=== PATIENT | male | born 1960 | race American Indian/Alaskan Native ===

== ENCOUNTER 2018-06-10 21:28 | Inpatient (IN) ==
[2018-06-11] MEDS ORDERED: DEXTROSE 50% 25 GM/50 ML VIAL IV ONE (00:09)
[2018-06-11] MEDS ORDERED: FUROSEMIDE 40 MG/4 ML VIAL IV ONE (00:32)
[2018-06-11] MEDS ORDERED: GLUCAGON 1 MG VIAL IM PRN ×2 (00:44→00:51)
[2018-06-11] MEDS ORDERED: ONDANSETRON 4 MG/2 ML VIAL IV PRN (00:44)
[2018-06-11] MEDS ORDERED: ACETAMINOPHEN 325 MG TABLET PO PRN (00:44)
[2018-06-11] MEDS ORDERED: ALBUTEROL/IPRATROPIUM 3 ML NEB RESP TX PRN (00:50)
[2018-06-11] MEDS ORDERED: DEXTROSE 50% 25 GM/50 ML VIAL IV PRN (00:51)
[2018-06-11] MEDS: cefTRIAXone 1,000 MG in SYRINGE 1 EACH IV SCH (01:30)
[2018-06-11] MEDS: DEXTROSE 50% 25 GM/50 ML VIAL IV PRN ×2 (01:37→07:16)
[2018-06-11 01:51] LABS: Basophils # 0.1 10*3/uL (0.0-0.2); Basophils % 0.3 % (0.0-0.8); Hematocrit 35.6 VOL% (42.0-52.0); Hemoglobin 11.9 GM/DL (14.0-18.0); Immature Granulocytes % 0.7 %; Immature Granulocytes Absolute 0.18 #; Lymphocytes # 0.8 10*3/uL (1.4-4.0); Lymphocytes % 2.9 % (21.2-54.2); Mean Corpuscular HGB Conc 33.4 GM/DL (32-36); Mean Corpuscular Hemoglobin 29 PG (27-34); Mean Corpuscular Volume 87.3 FL (87-102); Mean Platelet Volume 9.3 FL (9.6-12.0); Monocytes # 1.9 10*3/uL (0.11-0.8); Monocytes % 6.8 % (1.7-12.7); Neutrophils # 24.3 10*3/uL (1.4-7.4); Neutrophils % 89.3 % (38.7-73.9); Platelet Count 344 T/CUMM (130-400); Red Blood Count 4.08 MC/CUMM (3.8-5.5); Red Cell Distribution Width 14.1 % (9.3-17.3); White Blood Count 27.2 T/CUMM (4-12)
[2018-06-11 01:52] LABS: Albumin 2.1 G/DL (3.4-5.0); Bilirubin,Total 0.4 MG/DL (0.2-1.0); Calcium 8.2 MG/DL (8.5-10.1); Osmolality,Calculated 287.4 MOS/KG (273-304); Potassium 3.8 MMOL/L (3.5-5.1); Total Protein 6.8 G/DL (6.4-8.3)
[2018-06-11] MEDS: AZITHROMYCIN INJ 500 MG in SODIUM CHLORIDE 0.9% 250 ML IV SCH (02:13)
[2018-06-11 02:21] LABS: Band Neutrophils 4 % (0-10); Lymphocytes 3 % (20-55); Platelet Estimate Normal; Segmented Neutrophils 86 % (50-85); Total Cells Counted 100
[2018-06-11 03:55] LABS: Apearance,Urine Slightly Hazy (Clear); Bilirubin,Urine Negative (Negative); Blood, Urine Moderate mg/dL (Negative); Glucose,Urine (UA) 50 mg/dL (Negative); Hyaline Casts,Urine 1 /LPF (0-3); Ketones,Urine Negative (Negative); Mucus,Urine Occasional /LPF (Occasional); Nitrite,Urine Negative (Negative); Protein,Urine >=500 MG/DL; RBC,Urine 42 /HPF (0-4); Squamous Epithelial Cell,Urine Occasional /HPF (0-10); Urine Color Yellow (Yellow); Urine Specific Gravity 1.008 (1.001-1.035); Urine Urobilinogen < 2.0 EU/DL (0.2-1.0); WBC,Urine 4 /HPF (0-6)
[2018-06-11 04:41] LABS: Basophils # 0.1 10*3/uL (0.0-0.2); Basophils % 0.2 % (0.0-0.8); Hematocrit 34.2 VOL% (42.0-52.0); Immature Granulocytes % 0.7 %; Immature Granulocytes Absolute 0.19 #; Lymphocytes # 1.1 10*3/uL (1.4-4.0); Lymphocytes % 4.2 % (21.2-54.2); Mean Corpuscular HGB Conc 32.2 GM/DL (32-36); Mean Corpuscular Hemoglobin 29 PG (27-34); Mean Corpuscular Volume 89.8 FL (87-102); Mean Platelet Volume 9.4 FL (9.6-12.0); Monocytes # 1.7 10*3/uL (0.11-0.8); Monocytes % 6.5 % (1.7-12.7); Neutrophils # 23.1 10*3/uL (1.4-7.4); Neutrophils % 88.4 % (38.7-73.9); Platelet Count 323 T/CUMM (130-400); Red Blood Count 3.81 MC/CUMM (3.8-5.5); White Blood Count 26.2 T/CUMM (4-12)
[2018-06-11 05:03] LABS: Band Neutrophils 6 % (0-10); Lymphocytes 4 % (20-55); Platelet Estimate Normal; Segmented Neutrophils 85 % (50-85); Total Cells Counted 100
[2018-06-11 05:20] LABS: Calcium 7.9 MG/DL (8.5-10.1); Osmolality,Calculated 287.4 MOS/KG (273-304); Thyroid Stimulating Hormone 1.81 uIU/ml (0.358-3.74)
[2018-06-11] MEDS: INSULIN REGULAR 100 UNIT/ML SUBCUT SCH ×4 (07:16→20:46)
[2018-06-11] MEDS ORDERED: METOPROLOL TARTRATE 50 MG TABLET PO SCH (09:00)
[2018-06-11] MEDS ORDERED: amLODIPine 2.5 MG TABLET PO SCH (09:00)
[2018-06-11] MEDS: PANTOPRAZOLE 40 MG TABLET PO SCH (09:09)
[2018-06-11] MEDS: CARVEDILOL 12.5 MG TABLET PO SCH ×2 (09:09→20:32)
[2018-06-11] MEDS: ASPIRIN EC 81 MG TABLET PO SCH (09:09)
[2018-06-11] MEDS: ENOXAPARIN 30 MG/0.3 ML SYRINGE SUBCUT SCH (09:09)
[2018-06-11] MEDS: FUROSEMIDE 40 MG/4 ML VIAL IV SCH ×2 (09:10→17:25)
[2018-06-11] MEDS: cloNIDine 0.1 MG TABLET PO SCH ×2 (17:25→20:33)
[2018-06-12] MEDS: cefTRIAXone 1,000 MG in SYRINGE 1 EACH IV SCH (01:21)
[2018-06-12] MEDS: AZITHROMYCIN INJ 500 MG in SODIUM CHLORIDE 0.9% 250 ML IV SCH (01:23)
[2018-06-12 03:10] LABS: Basophils % 0.2 % (0.0-0.8); Eosinophils # 0.2 10*3/uL (0.0-0.87); Eosinophils % 1.2 % (0.00-10.9); Hematocrit 28.3 VOL% (42.0-52.0); Hemoglobin 9.2 GM/DL (14.0-18.0); Immature Granulocytes % 0.5 %; Immature Granulocytes Absolute 0.07 #; Lymphocytes # 1.2 10*3/uL (1.4-4.0); Lymphocytes % 7.7 % (21.2-54.2); Mean Corpuscular HGB Conc 32.5 GM/DL (32-36); Mean Corpuscular Hemoglobin 29 PG (27-34); Mean Corpuscular Volume 89.3 FL (87-102); Mean Platelet Volume 9.4 FL (9.6-12.0); Monocytes # 1.2 10*3/uL (0.11-0.8); Monocytes % 7.7 % (1.7-12.7); Neutrophils # 12.5 10*3/uL (1.4-7.4); Neutrophils % 82.7 % (38.7-73.9); Platelet Count 268 T/CUMM (130-400); Red Blood Count 3.17 MC/CUMM (3.8-5.5); Red Cell Distribution Width 14.1 % (9.3-17.3); White Blood Count 15.1 T/CUMM (4-12)
[2018-06-12 03:25] LABS: Calcium 7.5 MG/DL (8.5-10.1); Potassium 3.6 MMOL/L (3.5-5.1)
[2018-06-12] MEDS: INSULIN REGULAR 100 UNIT/ML SUBCUT SCH ×4 (07:52→21:52)
[2018-06-12] MEDS: ENOXAPARIN 30 MG/0.3 ML SYRINGE SUBCUT SCH (08:11)
[2018-06-12] MEDS: CARVEDILOL 12.5 MG TABLET PO SCH ×2 (08:11→20:28)
[2018-06-12] MEDS: ASPIRIN EC 81 MG TABLET PO SCH (08:11)
[2018-06-12] MEDS: cloNIDine 0.1 MG TABLET PO SCH ×2 (08:11→20:28)
[2018-06-12] MEDS: FUROSEMIDE 40 MG/4 ML VIAL IV SCH ×2 (08:11→17:01)
[2018-06-12] MEDS: PANTOPRAZOLE 40 MG TABLET PO SCH (08:12)
[2018-06-12 16:06] LABS: Protein/Creatinine Ratio,Urine 5.9 RATIO
[2018-06-12 16:11] LABS: Total Protein 24 Hr Ur Result 7556 MG/24HR (0-149.1); Total Volume,Urine 2325 ML (400-2000)
[2018-06-13 06:00] LABS: Basophils % 0.4 % (0.0-0.8); Eosinophils # 0.3 10*3/uL (0.0-0.87); Eosinophils % 3.1 % (0.00-10.9); Hematocrit 28.2 VOL% (42.0-52.0); Hemoglobin 9.3 GM/DL (14.0-18.0); Immature Granulocytes % 1.4 %; Immature Granulocytes Absolute 0.14 #; Lymphocytes # 1.3 10*3/uL (1.4-4.0); Mean Corpuscular Hemoglobin 30 PG (27-34); Mean Platelet Volume 9.7 FL (9.6-12.0); Monocytes # 0.9 10*3/uL (0.11-0.8); Monocytes % 8.8 % (1.7-12.7); Neutrophils # 7.3 10*3/uL (1.4-7.4); Neutrophils % 73.3 % (38.7-73.9); Platelet Count 309 T/CUMM (130-400)
[2018-06-13 06:29] LABS: Calcium 7.4 MG/DL (8.5-10.1); Potassium 3.9 MMOL/L (3.5-5.1)
[2018-06-13] MEDS: INSULIN REGULAR 100 UNIT/ML SUBCUT SCH ×4 (07:11→21:12)
[2018-06-13] MEDS ORDERED: FUROSEMIDE 40 MG/4 ML VIAL IV SCH (09:00)
[2018-06-13] MEDS: CARVEDILOL 12.5 MG TABLET PO SCH (09:08)
[2018-06-13] MEDS: AZITHROMYCIN 250 MG TABLET PO SCH (09:08)
[2018-06-13] MEDS: ENOXAPARIN 30 MG/0.3 ML SYRINGE SUBCUT SCH (09:09)
[2018-06-13] MEDS: cloNIDine 0.1 MG TABLET PO SCH ×2 (09:09→21:12)
[2018-06-13] MEDS: PANTOPRAZOLE 40 MG TABLET PO SCH (09:09)
[2018-06-13] MEDS: ASPIRIN EC 81 MG TABLET PO SCH (09:10)
[2018-06-13] MEDS: cefTRIAXone 1,000 MG in SYRINGE 1 EACH IV SCH (09:14)
[2018-06-13 09:32] LABS: Albumin (UPE) 3732.7 MG/24H; Albumin (UPE) Rel % 49.4 %; Alpha 1 (UPE) 846.3 MG/24H; Alpha 1 (UPE) Rel % 11.2 %; Alpha 2 (UPE) 959.6 MG/24H; Alpha 2 (UPE) Rel % 12.7 %; Beta (UPE) 642.3 MG/24H; Beta (UPE) Rel % 8.5 %
[2018-06-13 09:33] LABS: Gamma (UPE) 1375.2 MG/24H; Gamma (UPE) Rel % 18.2 %
[2018-06-13] MEDS: CARVEDILOL 25 MG TABLET PO SCH (18:03)
[2018-06-14 06:30] LABS: Basophils % 0.5 % (0.0-0.8); Eosinophils # 0.3 10*3/uL (0.0-0.87); Eosinophils % 3.7 % (0.00-10.9); Hematocrit 27.6 VOL% (42.0-52.0); Hemoglobin 9.1 GM/DL (14.0-18.0); Immature Granulocytes % 0.7 %; Immature Granulocytes Absolute 0.06 #; Lymphocytes # 1.3 10*3/uL (1.4-4.0); Lymphocytes % 15.2 % (21.2-54.2); Mean Corpuscular Hemoglobin 29 PG (27-34); Mean Corpuscular Volume 87.6 FL (87-102); Mean Platelet Volume 9.2 FL (9.6-12.0); Monocytes # 0.7 10*3/uL (0.11-0.8); Monocytes % 8.3 % (1.7-12.7); Neutrophils # 6.3 10*3/uL (1.4-7.4); Neutrophils % 71.6 % (38.7-73.9); Platelet Count 317 T/CUMM (130-400); Red Blood Count 3.15 MC/CUMM (3.8-5.5); Red Cell Distribution Width 13.6 % (9.3-17.3); White Blood Count 8.8 T/CUMM (4-12)
[2018-06-14 06:51] LABS: Calcium 7.7 MG/DL (8.5-10.1); Osmolality,Calculated 295.1 MOS/KG (273-304); Potassium 4.5 MMOL/L (3.5-5.1)
[2018-06-14] MEDS: cefTRIAXone 1,000 MG in SYRINGE 1 EACH IV SCH (09:58)
[2018-06-14] MEDS: CARVEDILOL 25 MG TABLET PO SCH ×2 (10:01→16:56)
[2018-06-14] MEDS: PANTOPRAZOLE 40 MG TABLET PO SCH (10:01)
[2018-06-14] MEDS: FUROSEMIDE 80 MG TABLET PO SCH (10:01)
[2018-06-14] MEDS: AZITHROMYCIN 250 MG TABLET PO SCH (10:02)
[2018-06-14] MEDS: cloNIDine 0.1 MG TABLET PO SCH ×2 (10:02→21:52)
[2018-06-14] MEDS: ASPIRIN EC 81 MG TABLET PO SCH (10:02)
[2018-06-14] MEDS: INSULIN REGULAR 100 UNIT/ML SUBCUT SCH ×4 (10:03→21:53)
[2018-06-14] MEDS: ENOXAPARIN 30 MG/0.3 ML SYRINGE SUBCUT SCH (10:03)
[2018-06-14] MEDS: hydrALAZINE 25 MG TABLET PO SCH ×2 (16:56→21:52)
[2018-06-15 05:29] LABS: Basophils # 0.1 10*3/uL (0.0-0.2); Basophils % 0.6 % (0.0-0.8); Eosinophils # 0.3 10*3/uL (0.0-0.87); Eosinophils % 3.1 % (0.00-10.9); Hematocrit 28.9 VOL% (42.0-52.0); Hemoglobin 9.4 GM/DL (14.0-18.0); Immature Granulocytes % 1.1 %; Lymphocytes # 1.3 10*3/uL (1.4-4.0); Lymphocytes % 14.4 % (21.2-54.2); Mean Corpuscular HGB Conc 32.5 GM/DL (32-36); Mean Corpuscular Hemoglobin 29 PG (27-34); Mean Corpuscular Volume 89.8 FL (87-102); Mean Platelet Volume 8.9 FL (9.6-12.0); Monocytes # 0.8 10*3/uL (0.11-0.8); Monocytes % 8.9 % (1.7-12.7); Neutrophils # 6.5 10*3/uL (1.4-7.4); Neutrophils % 71.9 % (38.7-73.9); Platelet Count 331 T/CUMM (130-400); Red Blood Count 3.22 MC/CUMM (3.8-5.5); Red Cell Distribution Width 13.3 % (9.3-17.3)
[2018-06-15 05:47] LABS: Calcium 7.8 MG/DL (8.5-10.1); Osmolality,Calculated 289.4 MOS/KG (273-304); Potassium 4.2 MMOL/L (3.5-5.1)
[2018-06-15] MEDS: hydrALAZINE 25 MG TABLET PO SCH (10:32)
[2018-06-15] MEDS: CARVEDILOL 25 MG TABLET PO SCH (10:32)
[2018-06-15] MEDS: cefTRIAXone 1,000 MG in SYRINGE 1 EACH IV SCH (10:32)
[2018-06-15] MEDS: cloNIDine 0.1 MG TABLET PO SCH (10:33)
[2018-06-15] MEDS: ENOXAPARIN 30 MG/0.3 ML SYRINGE SUBCUT SCH (10:33)
[2018-06-15] MEDS: ASPIRIN EC 81 MG TABLET PO SCH (10:33)
[2018-06-15] MEDS: FUROSEMIDE 80 MG TABLET PO SCH (10:33)
[2018-06-15] MEDS: PANTOPRAZOLE 40 MG TABLET PO SCH (10:34)
[2018-06-15] MEDS: INSULIN REGULAR 100 UNIT/ML SUBCUT SCH ×2 (10:42→12:08)
[2018-06-15] MEDS: AZITHROMYCIN 250 MG TABLET PO SCH (11:03)
[2018-06-15] MEDS ORDERED: hydrALAZINE 20 MG/1 ML VIAL IV ONE (12:00)
[2018-06-15 13:44] VITALS: BP 152/78
== END 2018-06-15 15:03 | disposition home or self-care (01) ==
LOC: N.2E 23:19 → SUATTDRO 06-11 00:44
PROVIDERS: ADMIT Internal Medicine; ATTEND Internal Medicine

== ENCOUNTER 2018-07-14 18:02 | Inpatient (IN) ==
[2018-07-14] MEDS ORDERED: DOCUSATE SODIUM 100 MG CAPSULE PO PRN (20:25)
[2018-07-14] MEDS ORDERED: ONDANSETRON 4 MG/2 ML VIAL IV PRN (20:25)
[2018-07-14] MEDS ORDERED: ACETAMINOPHEN 325 MG TABLET PO PRN (20:25)
[2018-07-14] MEDS ORDERED: hydrALAZINE 20 MG/1 ML VIAL IV PRN (20:33)
[2018-07-14] MEDS ORDERED: GLUCAGON 1 MG VIAL IM PRN (20:38)
[2018-07-14] MEDS ORDERED: DEXTROSE 50% 25 GM/50 ML VIAL IV PRN (20:38)
[2018-07-14 21:03] LABS: Basophils % 0.4 % (0.0-0.8); Hematocrit 32.2 VOL% (42.0-52.0); Hemoglobin 10.5 GM/DL (14.0-18.0); Immature Granulocytes % 0.5 %; Immature Granulocytes Absolute 0.04 #; Lymphocytes # 0.8 10*3/uL (1.4-4.0); Lymphocytes % 9.6 % (21.2-54.2); Mean Corpuscular HGB Conc 32.6 GM/DL (32-36); Mean Corpuscular Hemoglobin 29 PG (27-34); Monocytes # 1.2 10*3/uL (0.11-0.8); Neutrophils # 5.8 10*3/uL (1.4-7.4); Neutrophils % 74.5 % (38.7-73.9); Platelet Count 198 T/CUMM (130-400); Red Blood Count 3.62 MC/CUMM (3.8-5.5); Red Cell Distribution Width 14.1 % (9.3-17.3); White Blood Count 7.8 T/CUMM (4-12)
[2018-07-14] MEDS: ESCITALOPRAM 10 MG TABLET PO SCH (21:14)
[2018-07-14] MEDS: ENOXAPARIN 30 MG/0.3 ML SYRINGE SUBCUT SCH (21:14)
[2018-07-14 21:17] LABS: Potassium 3.8 MMOL/L (3.5-5.1)
[2018-07-14] MEDS: cefTRIAXone 2,000 MG in SYRINGE 1 EACH IV SCH (21:55)
[2018-07-14] MEDS: TIMOLOL 0.5% OPH SOLN 5 ML BOTTLE BOTH EYES SCH (22:02)
[2018-07-14] MEDS: LEVOFLOXACIN INJ 500 MG in PREMIX 1 EACH IV SCH (22:38)
[2018-07-14 23:58] LABS: Amorphous Crystals,Urine Occasional /HPF (Few); Apearance,Urine CLOUDY (Clear); Bacteria,Urine Many /HPF (Few); Bilirubin,Urine Negative (Negative); Blood, Urine Moderate mg/dL (Negative); Glucose,Urine (UA) 150 mg/dL (Negative); Ketones,Urine Negative (Negative); Nitrite,Urine Negative (Negative); Protein,Urine >=500 MG/DL; Urine Color Yellow (Yellow); Urine Specific Gravity 1.008 (1.001-1.035); Urine Urobilinogen < 2.0 EU/DL (0.2-1.0)
[2018-07-15] MEDS: ALBUTEROL/IPRATROPIUM 3 ML NEB RESP TX SCH ×4 (00:21→19:19)
[2018-07-15 06:12] LABS: Basophils % 0.2 % (0.0-0.8); Hematocrit 25.6 VOL% (42.0-52.0); Immature Granulocytes % 0.7 %; Immature Granulocytes Absolute 0.03 #; Lymphocytes # 0.7 10*3/uL (1.4-4.0); Lymphocytes % 16.5 % (21.2-54.2); Mean Corpuscular HGB Conc 31.3 GM/DL (32-36); Mean Corpuscular Hemoglobin 28 PG (27-34); Mean Corpuscular Volume 89.5 FL (87-102); Mean Platelet Volume 9.5 FL (9.6-12.0); Monocytes # 0.5 10*3/uL (0.11-0.8); Monocytes % 12.8 % (1.7-12.7); Neutrophils % 69.8 % (38.7-73.9); Platelet Count 157 T/CUMM (130-400); Red Blood Count 2.86 MC/CUMM (3.8-5.5); Red Cell Distribution Width 14.1 % (9.3-17.3); White Blood Count 4.2 T/CUMM (4-12)
[2018-07-15 06:38] LABS: Albumin 1.5 G/DL (3.4-5.0); Bilirubin,Total 0.4 MG/DL (0.2-1.0); Calcium 6.5 MG/DL (8.5-10.1); Osmolality,Calculated 285.5 MOS/KG (273-304); Potassium 3.6 MMOL/L (3.5-5.1); Risk Ratio 2.31; Total Protein 5.3 G/DL (6.4-8.3); VLDL CHOLESTEROL 15.2 MG/DL
[2018-07-15] MEDS ORDERED: FUROSEMIDE 40 MG TABLET PO SCH ×2 (09:00→12:51)
[2018-07-15] MEDS: FLUTICASONE 50 MCG NASAL SPRAY 16 GM BOTTLE BOTH NARES SCH (10:03)
[2018-07-15] MEDS: METOPROLOL SUCCINATE XL 50 MG TABLET PO SCH (10:04)
[2018-07-15] MEDS: amLODIPine 10 MG TABLET PO SCH (10:05)
[2018-07-15] MEDS: methylPREDNISolone SOD SUC 40 MG/1 ML VIAL IV SCH ×2 (15:00→23:05)
[2018-07-15] MEDS: TIMOLOL 0.5% OPH SOLN 5 ML BOTTLE BOTH EYES SCH ×2 (17:00→20:51)
[2018-07-15] MEDS: ESCITALOPRAM 10 MG TABLET PO SCH (20:50)
[2018-07-15] MEDS: ENOXAPARIN 30 MG/0.3 ML SYRINGE SUBCUT SCH (20:50)
[2018-07-15] MEDS: cefTRIAXone 2,000 MG in SYRINGE 1 EACH IV SCH (20:50)
[2018-07-16] MEDS: ALBUTEROL/IPRATROPIUM 3 ML NEB RESP TX SCH ×4 (00:32→19:23)
[2018-07-16] MEDS: methylPREDNISolone SOD SUC 40 MG/1 ML VIAL IV SCH ×3 (06:26→23:17)
[2018-07-16 06:33] LABS: Hematocrit 28.7 VOL% (42.0-52.0); Hemoglobin 9.1 GM/DL (14.0-18.0); Immature Granulocytes % 0.4 %; Immature Granulocytes Absolute 0.02 #; Lymphocytes # 0.4 10*3/uL (1.4-4.0); Lymphocytes % 6.9 % (21.2-54.2); Mean Corpuscular HGB Conc 31.7 GM/DL (32-36); Mean Corpuscular Hemoglobin 29 PG (27-34); Mean Corpuscular Volume 90.3 FL (87-102); Monocytes # 0.1 10*3/uL (0.11-0.8); Monocytes % 1.8 % (1.7-12.7); Neutrophils # 4.6 10*3/uL (1.4-7.4); Neutrophils % 90.9 % (38.7-73.9); Platelet Count 172 T/CUMM (130-400); Red Blood Count 3.18 MC/CUMM (3.8-5.5); Red Cell Distribution Width 14.1 % (9.3-17.3); White Blood Count 5.1 T/CUMM (4-12)
[2018-07-16 07:03] LABS: Albumin 1.7 G/DL (3.4-5.0); Bilirubin,Total 0.7 MG/DL (0.2-1.0); Calcium 6.7 MG/DL (8.5-10.1); Osmolality,Calculated 292.1 MOS/KG (273-304); Potassium 4.2 MMOL/L (3.5-5.1); Total Protein 5.9 G/DL (6.4-8.3)
[2018-07-16 07:04] LABS: % Iron Saturation 12.9 % (18-50); Ferritin 417.7 ng/ml (26-388)
[2018-07-16 07:06] LABS: Anisocytosis 1+; Band Neutrophils 20 % (0-10); Burr Cells Few; Lymphocytes 2 % (20-55); Platelet Estimate Normal; Poikilocytosis 1+; Segmented Neutrophils 78 % (50-85); Total Cells Counted 100
[2018-07-16 07:44] LABS: Sedimentation Rate-Westergren 115 MM/HR (0-20)
[2018-07-16 09:19] LABS: Folate 11.6 NG/ML (5.4-24.0); Vitamin B12 242 PG/ML (211-911)
[2018-07-16] MEDS: amLODIPine 10 MG TABLET PO SCH (09:37)
[2018-07-16] MEDS: METOPROLOL SUCCINATE XL 50 MG TABLET PO SCH (09:37)
[2018-07-16] MEDS: FLUTICASONE 50 MCG NASAL SPRAY 16 GM BOTTLE BOTH NARES SCH (09:38)
[2018-07-16] MEDS: TIMOLOL 0.5% OPH SOLN 5 ML BOTTLE BOTH EYES SCH ×2 (09:38→20:26)
[2018-07-16 12:36] LABS: Amorphous Crystals,Urine Occasional /HPF (Few); Apearance,Urine CLOUDY (Clear); Bilirubin,Urine Negative (Negative); Blood, Urine Moderate mg/dL (Negative); Glucose,Urine (UA) >=500 mg/dL (Negative); Ketones,Urine Negative (Negative); Mucus,Urine Occasional /LPF (Occasional); Nitrite,Urine Negative (Negative); Protein,Urine >=500 MG/DL; Urine Color Yellow (Yellow); Urine Specific Gravity 1.011 (1.001-1.035); Urine Urobilinogen < 2.0 EU/DL (0.2-1.0); WBC,Urine 5 /HPF (0-6)
[2018-07-16] MEDS: INSULIN REGULAR 100 UNIT/ML SUBCUT SCH ×2 (16:32→21:23)
[2018-07-16] MEDS: ESCITALOPRAM 10 MG TABLET PO SCH (20:25)
[2018-07-16] MEDS: ENOXAPARIN 30 MG/0.3 ML SYRINGE SUBCUT SCH (20:25)
[2018-07-16] MEDS: FINASTERIDE 5 MG TABLET PO SCH (20:25)
[2018-07-16] MEDS: traZODone 50 MG TABLET PO PRN (20:25)
[2018-07-16] MEDS: TAMSULOSIN 0.4 MG CAPSULE PO SCH (20:25)
[2018-07-16] MEDS: cefTRIAXone 2,000 MG in SYRINGE 1 EACH IV SCH (20:28)
[2018-07-16] MEDS: LEVOFLOXACIN INJ 500 MG in PREMIX 1 EACH IV SCH (20:30)
[2018-07-17] MEDS: ALBUTEROL/IPRATROPIUM 3 ML NEB RESP TX SCH ×4 (00:13→19:20)
[2018-07-17 04:33] LABS: Hematocrit 28.6 VOL% (42.0-52.0); Hemoglobin 8.9 GM/DL (14.0-18.0); Immature Granulocytes % 0.7 %; Immature Granulocytes Absolute 0.06 #; Lymphocytes # 0.6 10*3/uL (1.4-4.0); Lymphocytes % 6.8 % (21.2-54.2); Mean Corpuscular HGB Conc 31.1 GM/DL (32-36); Mean Corpuscular Hemoglobin 28 PG (27-34); Mean Corpuscular Volume 89.7 FL (87-102); Mean Platelet Volume 9.8 FL (9.6-12.0); Monocytes # 0.5 10*3/uL (0.11-0.8); Monocytes % 6.1 % (1.7-12.7); Neutrophils # 7.2 10*3/uL (1.4-7.4); Neutrophils % 86.4 % (38.7-73.9); Platelet Count 187 T/CUMM (130-400); Red Blood Count 3.19 MC/CUMM (3.8-5.5); White Blood Count 8.4 T/CUMM (4-12)
[2018-07-17 04:38] LABS: Alanine Aminotransferase 50 U/L (16-61); Albumin 1.6 G/DL (3.4-5.0); Alkaline Phosphatase 259 U/L (45-117); Aspartate Amino Transferase 55 U/L (0-37); Bilirubin,Total < 0.39 MG/DL (0.2-1.0); Blood Urea Nitrogen 84 MG/DL (7-18); Calcium 6.9 MG/DL (8.5-10.1); Glucose 183 MG/DL (74-106); Osmolality,Calculated 298.2 MOS/KG (273-304); Potassium 4.5 MMOL/L (3.5-5.1); Sodium 134 MMOL/L (136-145)
[2018-07-17 05:39] LABS: Burr Cells Slight; Hypochromasia 1+; Ovalocytes Slight; Platelet Estimate Adequate
[2018-07-17] MEDS: methylPREDNISolone SOD SUC 40 MG/1 ML VIAL IV SCH ×2 (06:13→17:32)
[2018-07-17] MEDS ORDERED: PHENAZOPYRIDINE 95 MG TABLET PO SCH (08:00)
[2018-07-17] MEDS: INSULIN REGULAR 100 UNIT/ML SUBCUT SCH ×4 (08:39→22:03)
[2018-07-17] MEDS: FUROSEMIDE 100 MG/10 ML VIAL IV SCH (08:39)
[2018-07-17] MEDS: INSULIN GLARGINE 100 UNIT/ML SUBCUT SCH (08:40)
[2018-07-17] MEDS: METOPROLOL SUCCINATE XL 50 MG TABLET PO SCH (08:40)
[2018-07-17] MEDS: FLUTICASONE 50 MCG NASAL SPRAY 16 GM BOTTLE BOTH NARES SCH (08:40)
[2018-07-17] MEDS: amLODIPine 10 MG TABLET PO SCH (08:40)
[2018-07-17] MEDS: AZITHROMYCIN 250 MG TABLET PO SCH (08:40)
[2018-07-17] MEDS: IRON SUCROSE 200 MG in SODIUM CHLORIDE 0.9% 100 ML IV SCH (09:16)
[2018-07-17] MEDS: TIMOLOL 0.5% OPH SOLN 5 ML BOTTLE BOTH EYES SCH ×2 (09:36→21:58)
[2018-07-17] MEDS: cefTRIAXone 1,000 MG in SYRINGE 1 EACH IV SCH (21:45)
[2018-07-17] MEDS: FINASTERIDE 5 MG TABLET PO SCH (21:51)
[2018-07-17] MEDS: traZODone 50 MG TABLET PO PRN (21:51)
[2018-07-17] MEDS: ESCITALOPRAM 10 MG TABLET PO SCH (21:51)
[2018-07-17] MEDS: TAMSULOSIN 0.4 MG CAPSULE PO SCH (21:52)
[2018-07-17] MEDS: ENOXAPARIN 30 MG/0.3 ML SYRINGE SUBCUT SCH (21:52)
[2018-07-18] MEDS: ALBUTEROL/IPRATROPIUM 3 ML NEB RESP TX SCH ×4 (01:00→19:25)
[2018-07-18] MEDS: methylPREDNISolone SOD SUC 40 MG/1 ML VIAL IV SCH ×3 (01:37→18:40)
[2018-07-18 05:23] LABS: Hematocrit 27.4 VOL% (42.0-52.0); Hemoglobin 8.6 GM/DL (14.0-18.0); Immature Granulocytes % 1.2 %; Lymphocytes # 0.4 10*3/uL (1.4-4.0); Mean Corpuscular HGB Conc 31.4 GM/DL (32-36); Mean Corpuscular Hemoglobin 28 PG (27-34); Mean Corpuscular Volume 89.5 FL (87-102); Mean Platelet Volume 10.1 FL (9.6-12.0); Monocytes # 0.4 10*3/uL (0.11-0.8); Monocytes % 4.4 % (1.7-12.7); Neutrophils # 7.5 10*3/uL (1.4-7.4); Neutrophils % 89.4 % (38.7-73.9); Platelet Count 190 T/CUMM (130-400); Red Blood Count 3.06 MC/CUMM (3.8-5.5); Red Cell Distribution Width 14.3 % (9.3-17.3); White Blood Count 8.4 T/CUMM (4-12)
[2018-07-18 05:46] LABS: Burr Cells Slight; Hypochromasia 1+; Platelet Estimate Adequate
[2018-07-18 05:53] LABS: Alanine Aminotransferase 49 U/L (16-61); Albumin 1.8 G/DL (3.4-5.0); Alkaline Phosphatase 234 U/L (45-117); Aspartate Amino Transferase 42 U/L (0-37); Bilirubin,Total < 0.39 MG/DL (0.2-1.0); Blood Urea Nitrogen 100 MG/DL (7-18); Calcium 6.4 MG/DL (8.5-10.1); Glucose 112 MG/DL (74-106); Osmolality,Calculated 301.1 MOS/KG (273-304); Potassium 4.8 MMOL/L (3.5-5.1); Sodium 135 MMOL/L (136-145); Total Protein 6.1 G/DL (6.4-8.3)
[2018-07-18] MEDS: INSULIN REGULAR 100 UNIT/ML SUBCUT SCH ×4 (08:06→21:28)
[2018-07-18] MEDS: AZITHROMYCIN 250 MG TABLET PO SCH (09:31)
[2018-07-18] MEDS: amLODIPine 10 MG TABLET PO SCH (09:31)
[2018-07-18] MEDS: IRON SUCROSE 200 MG in SODIUM CHLORIDE 0.9% 100 ML IV SCH (09:31)
[2018-07-18] MEDS: METOPROLOL SUCCINATE XL 50 MG TABLET PO SCH (09:31)
[2018-07-18] MEDS: FUROSEMIDE 100 MG/10 ML VIAL IV SCH ×2 (09:31→18:40)
[2018-07-18] MEDS: FLUTICASONE 50 MCG NASAL SPRAY 16 GM BOTTLE BOTH NARES SCH (09:32)
[2018-07-18] MEDS: TIMOLOL 0.5% OPH SOLN 5 ML BOTTLE BOTH EYES SCH ×2 (09:32→21:31)
[2018-07-18] MEDS: INSULIN GLARGINE 100 UNIT/ML SUBCUT SCH (09:42)
[2018-07-18] MEDS: metOLazone 5 MG TABLET PO SCH (14:14)
[2018-07-18] MEDS: ALBUMIN 25% 12.5 GM in PREMIX 1 EACH IV SCH (14:15)
[2018-07-18] MEDS: ENOXAPARIN 30 MG/0.3 ML SYRINGE SUBCUT SCH (21:28)
[2018-07-18] MEDS: CALCIUM CARBONATE CHEW 500 MG TABLET PO SCH (21:29)
[2018-07-18] MEDS: FINASTERIDE 5 MG TABLET PO SCH (21:29)
[2018-07-18] MEDS: cefTRIAXone 1,000 MG in SYRINGE 1 EACH IV SCH (21:29)
[2018-07-18] MEDS: ESCITALOPRAM 10 MG TABLET PO SCH (21:30)
[2018-07-18] MEDS: traZODone 50 MG TABLET PO PRN (21:30)
[2018-07-18] MEDS: TAMSULOSIN 0.4 MG CAPSULE PO SCH (21:30)
[2018-07-19] MEDS: ALBUTEROL/IPRATROPIUM 3 ML NEB RESP TX SCH ×4 (01:15→19:53)
[2018-07-19] MEDS: methylPREDNISolone SOD SUC 40 MG/1 ML VIAL IV SCH ×2 (02:47→08:46)
[2018-07-19] MEDS: ALBUMIN 25% 12.5 GM in PREMIX 1 EACH IV SCH ×2 (02:48→17:50)
[2018-07-19 05:52] LABS: Hematocrit 25.4 VOL% (42.0-52.0); Hemoglobin 8.3 GM/DL (14.0-18.0); Immature Granulocytes % 1.6 %; Lymphocytes # 0.3 10*3/uL (1.4-4.0); Lymphocytes % 5.3 % (21.2-54.2); Mean Corpuscular HGB Conc 32.7 GM/DL (32-36); Mean Corpuscular Hemoglobin 29 PG (27-34); Mean Corpuscular Volume 89.1 FL (87-102); Mean Platelet Volume 10.1 FL (9.6-12.0); Monocytes # 0.3 10*3/uL (0.11-0.8); Monocytes % 5.2 % (1.7-12.7); Neutrophils # 5.6 10*3/uL (1.4-7.4); Neutrophils % 87.9 % (38.7-73.9); Platelet Count 189 T/CUMM (130-400); Red Blood Count 2.85 MC/CUMM (3.8-5.5); Red Cell Distribution Width 14.5 % (9.3-17.3); White Blood Count 6.4 T/CUMM (4-12)
[2018-07-19 08:16] LABS: Alanine Aminotransferase 44 U/L (16-61); Alkaline Phosphatase 194 U/L (45-117); Aspartate Amino Transferase 29 U/L (0-37); Bilirubin,Total < 0.39 MG/DL (0.2-1.0); Blood Urea Nitrogen 120 MG/DL (7-18); Calcium 6.8 MG/DL (8.5-10.1); Glucose 130 MG/DL (74-106); Potassium 4.8 MMOL/L (3.5-5.1); Sodium 136 MMOL/L (136-145); Total Protein 5.8 G/DL (6.4-8.3)
[2018-07-19] MEDS: INSULIN GLARGINE 100 UNIT/ML SUBCUT SCH (08:43)
[2018-07-19] MEDS: AZITHROMYCIN 250 MG TABLET PO SCH (08:44)
[2018-07-19] MEDS: CALCIUM CARBONATE CHEW 500 MG TABLET PO SCH ×2 (08:44→20:55)
[2018-07-19] MEDS: TAMSULOSIN 0.4 MG CAPSULE PO SCH ×2 (08:45→20:55)
[2018-07-19] MEDS: amLODIPine 10 MG TABLET PO SCH (08:45)
[2018-07-19] MEDS: METOPROLOL SUCCINATE XL 50 MG TABLET PO SCH (08:45)
[2018-07-19] MEDS: TIMOLOL 0.5% OPH SOLN 5 ML BOTTLE BOTH EYES SCH ×2 (08:45→20:55)
[2018-07-19] MEDS: metOLazone 5 MG TABLET PO SCH (08:45)
[2018-07-19] MEDS: FLUTICASONE 50 MCG NASAL SPRAY 16 GM BOTTLE BOTH NARES SCH (08:53)
[2018-07-19] MEDS ORDERED: FUROSEMIDE 40 MG/4 ML VIAL ONE (08:57)
[2018-07-19] MEDS: FUROSEMIDE 100 MG/10 ML VIAL IV SCH ×2 (08:58→17:01)
[2018-07-19] MEDS: INSULIN REGULAR 100 UNIT/ML SUBCUT SCH ×4 (08:59→20:53)
[2018-07-19] MEDS: IRON SUCROSE 200 MG in SODIUM CHLORIDE 0.9% 100 ML IV SCH (10:48)
[2018-07-19] MEDS: ENOXAPARIN 30 MG/0.3 ML SYRINGE SUBCUT SCH (20:55)
[2018-07-19] MEDS: ESCITALOPRAM 10 MG TABLET PO SCH (20:55)
[2018-07-19] MEDS: FINASTERIDE 5 MG TABLET PO SCH (20:55)
[2018-07-19] MEDS ORDERED: methylPREDNISolone SOD SUC 40 MG/1 ML VIAL IV SCH (21:00)
[2018-07-19] MEDS: cefTRIAXone 1,000 MG in SYRINGE 1 EACH IV SCH (22:11)
[2018-07-20] MEDS: ALBUTEROL/IPRATROPIUM 3 ML NEB RESP TX SCH ×3 (00:50→13:30)
[2018-07-20 06:17] LABS: Hematocrit 28.5 VOL% (42.0-52.0); Hemoglobin 8.9 GM/DL (14.0-18.0); Immature Granulocytes % 1.3 %; Immature Granulocytes Absolute 0.09 #; Lymphocytes # 0.3 10*3/uL (1.4-4.0); Lymphocytes % 4.1 % (21.2-54.2); Mean Corpuscular HGB Conc 31.2 GM/DL (32-36); Mean Corpuscular Hemoglobin 28 PG (27-34); Mean Corpuscular Volume 88.2 FL (87-102); Mean Platelet Volume 10.6 FL (9.6-12.0); Monocytes # 0.4 10*3/uL (0.11-0.8); Neutrophils # 6.2 10*3/uL (1.4-7.4); Neutrophils % 88.6 % (38.7-73.9); Platelet Count 213 T/CUMM (130-400); Red Blood Count 3.23 MC/CUMM (3.8-5.5); Red Cell Distribution Width 14.6 % (9.3-17.3)
[2018-07-20 06:55] LABS: Acanthocytes Few; Band Neutrophils 2 % (0-10); Hypochromasia 1+; Lymphocytes 2 % (20-55); Microcytosis 1+; Segmented Neutrophils 92 % (50-85); Total Cells Counted 100
[2018-07-20 06:56] LABS: Platelet Estimate Normal
[2018-07-20 07:03] LABS: Alanine Aminotransferase 44 U/L (16-61); Alkaline Phosphatase 195 U/L (45-117); Aspartate Amino Transferase 24 U/L (0-37); Bilirubin,Total < 0.39 MG/DL (0.2-1.0); Blood Urea Nitrogen 131 MG/DL (7-18); Calcium 7.2 MG/DL (8.5-10.1); Glucose 127 MG/DL (74-106); Osmolality,Calculated 316.8 MOS/KG (273-304); Potassium 4.9 MMOL/L (3.5-5.1); Sodium 137 MMOL/L (136-145)
[2018-07-20] MEDS: TIMOLOL 0.5% OPH SOLN 5 ML BOTTLE BOTH EYES SCH (08:42)
[2018-07-20] MEDS: FLUTICASONE 50 MCG NASAL SPRAY 16 GM BOTTLE BOTH NARES SCH (08:43)
[2018-07-20] MEDS: CALCIUM CARBONATE CHEW 500 MG TABLET PO SCH (08:44)
[2018-07-20] MEDS: INSULIN GLARGINE 100 UNIT/ML SUBCUT SCH (08:44)
[2018-07-20] MEDS: AZITHROMYCIN 250 MG TABLET PO SCH (08:45)
[2018-07-20] MEDS: TAMSULOSIN 0.4 MG CAPSULE PO SCH (08:45)
[2018-07-20] MEDS: metOLazone 5 MG TABLET PO SCH (08:46)
[2018-07-20] MEDS: METOPROLOL SUCCINATE XL 50 MG TABLET PO SCH (08:46)
[2018-07-20] MEDS: amLODIPine 10 MG TABLET PO SCH (08:46)
[2018-07-20] MEDS: FUROSEMIDE 100 MG/10 ML VIAL IV SCH (08:48)
[2018-07-20] MEDS: INSULIN REGULAR 100 UNIT/ML SUBCUT SCH ×2 (08:53→12:19)
[2018-07-20] MEDS: ALBUMIN 25% 12.5 GM in PREMIX 1 EACH IV SCH (08:53)
[2018-07-20] MEDS: IRON SUCROSE 200 MG in SODIUM CHLORIDE 0.9% 100 ML IV SCH (11:25)
[2018-07-20 11:38] VITALS: BP 118/69
== END 2018-07-20 14:14 | disposition home or self-care (01) | DRG 698 ==
LOC: N.2E 19:43 → SUATTDRO 19:43
PROVIDERS: ADMIT Internal Medicine; ATTEND Internal Medicine

== ENCOUNTER 2019-02-06 15:51 | Inpatient (IN) ==
[2019-02-06] MEDS ORDERED: FUROSEMIDE 100 MG/10 ML VIAL IV STA (16:43)
[2019-02-06] MEDS ORDERED: NITROGLYCERIN 2% OINT 1 INCH/GM PACK TOP STA (16:43)
[2019-02-06] MEDS ORDERED: ONDANSETRON 4 MG/2 ML VIAL IV STA (16:43)
[2019-02-06 17:03] LABS: Basophils % 0.3 % (0.0-0.8); Eosinophils # 0.3 10*3/uL (0.0-0.87); Eosinophils % 2.4 % (0.00-10.9); Hematocrit 26.1 VOL% (42.0-52.0); Hemoglobin 8.1 GM/DL (14.0-18.0); Immature Granulocytes % 0.6 %; Immature Granulocytes Absolute 0.07 #; Lymphocytes % 8.6 % (21.2-54.2); Mean Corpuscular Volume 94.2 FL (87-102); Mean Platelet Volume 8.8 FL (9.6-12.0); Neutrophils % 78.1 % (38.7-73.9); Platelet Count 290 T/CUMM (130-400); Red Blood Count 2.77 MC/CUMM (3.8-5.5); Red Cell Distribution Width 13.8 % (9.3-17.3); White Blood Count 11.4 T/CUMM (4-12)
[2019-02-06 17:04] LABS: Alanine Aminotransferase 35 U/L (16-61); Albumin 2.6 G/DL (3.4-5.0); Alkaline Phosphatase 261 U/L (45-117); Aspartate Amino Transferase 25 U/L (0-37); Bilirubin,Total < 0.39 MG/DL (0.2-1.0); Blood Urea Nitrogen 63 MG/DL (7-18); Calcium 7.1 MG/DL (8.5-10.1); Glucose 154 MG/DL (74-106); Osmolality,Calculated 299.4 MOS/KG (273-304); Total Protein 6.2 G/DL (6.4-8.3)
[2019-02-06 17:37] LABS: Apearance,Urine CLEAR (Clear); Bacteria,Urine Occasional /HPF (Few); Bilirubin,Urine Negative (Negative); Blood, Urine Small mg/dL (Negative); Glucose,Urine (UA) >=500 mg/dL (Negative); Hyaline Casts,Urine 4 /LPF (0-3); Ketones,Urine Negative (Negative); Mucus,Urine Occasional /LPF (Occasional); Nitrite,Urine Negative (Negative); Protein,Urine >=500 MG/DL; RBC,Urine 3 /HPF (0-4); Urine Color Yellow (Yellow); Urine Specific Gravity 1.014 (1.001-1.035); Urine Urobilinogen < 2.0 EU/DL (0.2-1.0); WBC,Urine 1 /HPF (0-6)
[2019-02-06 18:33] LABS: INR 0.9; PT Patient Result 10.2 SECS
[2019-02-06] MEDS ORDERED: GLUCAGON 1 MG VIAL IM PRN ×2 (19:18)
[2019-02-06] MEDS ORDERED: MAGNESIUM SULF RIDER 2 GM in PREMIX 1 EACH IV PRN (19:18)
[2019-02-06] MEDS ORDERED: ONDANSETRON 4 MG/2 ML VIAL IV PRN (19:18)
[2019-02-06] MEDS ORDERED: ACETAMINOPHEN 325 MG TABLET PO PRN (19:18)
[2019-02-06] MEDS ORDERED: MAGNESIUM SULF RIDER 4 GM in PREMIX 1 EACH IV PRN (19:18)
[2019-02-06] MEDS ORDERED: DEXTROSE 50% 25 GM/50 ML VIAL IV PRN ×2 (19:18)
[2019-02-06] MEDS ORDERED: hydrALAZINE 20 MG/1 ML VIAL IV STA (20:23)
[2019-02-06] MEDS ORDERED: DORZOLAMIDE/TIMOLOL OPH SOLN 10 ML BOTTLE BOTH EYES SCH (21:00)
[2019-02-06] MEDS ORDERED: ENOXAPARIN 30 MG/0.3 ML SYRINGE SUBCUT SCH (21:00)
[2019-02-06] MEDS: TAMSULOSIN 0.4 MG CAPSULE PO SCH (22:57)
[2019-02-06] MEDS: CARVEDILOL 25 MG TABLET PO SCH (22:57)
[2019-02-06] MEDS: INSULIN REGULAR 100 UNIT/ML SUBCUT SCH (22:57)
[2019-02-06] MEDS: cloNIDine 0.1 MG TABLET PO SCH (22:57)
[2019-02-06] MEDS: CALCIUM CARBONATE CHEW 500 MG TABLET PO SCH (22:58)
[2019-02-06] MEDS: SIMVASTATIN 20 MG TABLET PO SCH (22:58)
[2019-02-07 06:55] LABS: Basophils % 0.4 % (0.0-0.8); Eosinophils # 0.4 10*3/uL (0.0-0.87); Eosinophils % 3.7 % (0.00-10.9); Hematocrit 22.6 VOL% (42.0-52.0); Immature Granulocytes % 0.4 %; Immature Granulocytes Absolute 0.04 #; Lymphocytes # 1.1 10*3/uL (1.4-4.0); Lymphocytes % 10.7 % (21.2-54.2); Mean Corpuscular Volume 94.2 FL (87-102); Monocytes % 9.9 % (1.7-12.7); Neutrophils % 74.9 % (38.7-73.9); Platelet Count 285 T/CUMM (130-400)
[2019-02-07 07:37] LABS: Albumin 2.2 G/DL (3.4-5.0); Bilirubin,Total 0.4 MG/DL (0.2-1.0); Calcium 7.4 MG/DL (8.5-10.1)
[2019-02-07] MEDS ORDERED: SODIUM CHLORIDE 0.9% 1,000 ML IV PRN (08:18)
[2019-02-07] MEDS: INSULIN NPH/REGULAR 70/30 100 UNIT/ML SUBCUT SCH (08:29)
[2019-02-07] MEDS: metOLazone 5 MG TABLET PO SCH (08:29)
[2019-02-07] MEDS: FUROSEMIDE 40 MG/4 ML VIAL IV SCH ×2 (08:29→16:16)
[2019-02-07] MEDS: cloNIDine 0.1 MG TABLET PO SCH ×2 (08:30→21:45)
[2019-02-07] MEDS: PANTOPRAZOLE 40 MG TABLET PO SCH (08:30)
[2019-02-07] MEDS: ASPIRIN EC 81 MG TABLET PO SCH (08:30)
[2019-02-07] MEDS: CALCIUM CARBONATE CHEW 500 MG TABLET PO SCH ×2 (08:30→21:45)
[2019-02-07] MEDS: INSULIN REGULAR 100 UNIT/ML SUBCUT SCH ×4 (08:30→21:40)
[2019-02-07] MEDS: CARVEDILOL 25 MG TABLET PO SCH ×2 (08:30→16:15)
[2019-02-07] MEDS: TAMSULOSIN 0.4 MG CAPSULE PO SCH ×2 (08:30→21:45)
[2019-02-07] MEDS ORDERED: DORZOLAMIDE/TIMOLOL OPH SOLN 10 ML BOTTLE BOTH EYES SCH (09:00)
[2019-02-07] MEDS: HEPARIN 5,000 UNIT/1 ML VIAL SUBCUT SCH ×2 (10:30→21:45)
[2019-02-07] MEDS ORDERED: POLYVINYL ALCOHOL 1.4% OPH SOLN 15 ML BOTTLE BOTH EYES PRN (11:17)
[2019-02-07] MEDS ORDERED: INSULIN NPH/REGULAR 70/30 100 UNIT/ML SUBCUT SCH (16:30)
[2019-02-07 17:23] LABS: Hematocrit 28.4 VOL% (42.0-52.0)
[2019-02-07] MEDS: ALBUTEROL/IPRATROPIUM 3 ML NEB RESP TX SCH (19:38)
[2019-02-07] MEDS: SIMVASTATIN 20 MG TABLET PO SCH (21:45)
[2019-02-08] MEDS: ALBUTEROL/IPRATROPIUM 3 ML NEB RESP TX SCH ×2 (01:35→07:02)
[2019-02-08 05:33] LABS: Basophils % 0.4 % (0.0-0.8); Eosinophils # 0.3 10*3/uL (0.0-0.87); Eosinophils % 2.3 % (0.00-10.9); Hematocrit 27.6 VOL% (42.0-52.0); Hemoglobin 8.7 GM/DL (14.0-18.0); Immature Granulocytes % 0.6 %; Immature Granulocytes Absolute 0.06 #; Lymphocytes % 9.3 % (21.2-54.2); Mean Corpuscular HGB Conc 31.5 GM/DL (32-36); Mean Corpuscular Volume 94.2 FL (87-102); Mean Platelet Volume 9.4 FL (9.6-12.0); Monocytes % 7.8 % (1.7-12.7); Neutrophils % 79.6 % (38.7-73.9); Platelet Count 301 T/CUMM (130-400); Red Blood Count 2.93 MC/CUMM (3.8-5.5); White Blood Count 10.8 T/CUMM (4-12)
[2019-02-08 06:13] LABS: % Iron Saturation 21.7 % (18-50); Ferritin 524.6 ng/ml (26-388)
[2019-02-08] MEDS: INSULIN REGULAR 100 UNIT/ML SUBCUT SCH ×2 (08:44→11:52)
[2019-02-08] MEDS: FUROSEMIDE 40 MG/4 ML VIAL IV SCH (09:04)
[2019-02-08] MEDS: metOLazone 5 MG TABLET PO SCH (09:05)
[2019-02-08] MEDS: ASPIRIN EC 81 MG TABLET PO SCH (09:05)
[2019-02-08] MEDS: TAMSULOSIN 0.4 MG CAPSULE PO SCH (09:06)
[2019-02-08] MEDS: PANTOPRAZOLE 40 MG TABLET PO SCH (09:06)
[2019-02-08] MEDS: cloNIDine 0.1 MG TABLET PO SCH (09:06)
[2019-02-08] MEDS: CALCIUM CARBONATE CHEW 500 MG TABLET PO SCH (09:06)
[2019-02-08] MEDS: CARVEDILOL 25 MG TABLET PO SCH (09:06)
[2019-02-08] MEDS: HEPARIN 5,000 UNIT/1 ML VIAL SUBCUT SCH ×2 (09:11→10:31)
[2019-02-08] MEDS: INSULIN NPH/REGULAR 70/30 100 UNIT/ML SUBCUT SCH (09:13)
[2019-02-08 12:29] VITALS: BP 197/98
== END 2019-02-08 12:45 | disposition home or self-care (01) | DRG 291 ==
LOC: N.ED 15:51 → SUATTDRO 19:18 → N.EDINP 19:18 → N.5E 20:50
PROVIDERS: ADMIT Internal Medicine

== ENCOUNTER 2019-03-28 14:25 | Inpatient (IN) ==
[2019-03-28] MEDS ORDERED: PNEUMOCOCCAL VACCINE (13 VALENT) 0.5 ML SYRINGE IM ONE (17:47)
[2019-03-28] MEDS ORDERED: FUROSEMIDE INJ 200 MG in SODIUM CHLORIDE 0.9% 50 ML IV ONE (18:19)
[2019-03-28] MEDS ORDERED: ACETAMINOPHEN 325 MG TABLET PO PRN (18:21)
[2019-03-28] MEDS ORDERED: DEXTROSE 50% 25 GM/50 ML VIAL IV PRN (18:21)
[2019-03-28] MEDS ORDERED: diphenhydrAMINE CAP 25 MG CAPSULE PO PRN (18:21)
[2019-03-28] MEDS ORDERED: GLUCAGON 1 MG VIAL IM PRN (18:21)
[2019-03-28] MEDS: CALCIUM CARBONATE CHEW 500 MG TABLET PO SCH (20:40)
[2019-03-28] MEDS: DORZOLAMIDE/TIMOLOL OPH SOLN 10 ML BOTTLE BOTH EYES SCH (20:41)
[2019-03-28] MEDS: CARVEDILOL 25 MG TABLET PO SCH (20:41)
[2019-03-28] MEDS: cloNIDine 0.1 MG TABLET PO SCH (20:41)
[2019-03-28] MEDS: DOCUSATE SODIUM 100 MG CAPSULE PO SCH (20:41)
[2019-03-28] MEDS: metOLazone 5 MG TABLET PO SCH (20:41)
[2019-03-28] MEDS: SIMVASTATIN 20 MG TABLET PO SCH (20:41)
[2019-03-28] MEDS: TAMSULOSIN 0.4 MG CAPSULE PO SCH (20:41)
[2019-03-28] MEDS ORDERED: TIMOLOL 0.5% OPH SOLN 5 ML BOTTLE BOTH EYES SCH (21:00)
[2019-03-28] MEDS: INSULIN REGULAR 100 UNIT/ML SUBCUT SCH (21:17)
[2019-03-29 05:39] LABS: Basophils # 0.1 10*3/uL (0.0-0.2); Basophils % 0.5 % (0.0-0.8); Eosinophils # 0.3 10*3/uL (0.0-0.87); Eosinophils % 2.5 % (0.00-10.9); Hematocrit 24.8 VOL% (42.0-52.0); Hemoglobin 7.8 GM/DL (14.0-18.0); Immature Granulocytes Absolute 0.11 #; Lymphocytes # 1.2 10*3/uL (1.4-4.0); Lymphocytes % 10.4 % (21.2-54.2); Mean Corpuscular HGB Conc 31.5 GM/DL (32-36); Mean Corpuscular Volume 91.9 FL (87-102); Mean Platelet Volume 9.4 FL (9.6-12.0); Monocytes % 8.1 % (1.7-12.7); Neutrophils % 77.5 % (38.7-73.9); Platelet Count 296 T/CUMM (130-400); Red Cell Distribution Width 13.8 % (9.3-17.3); White Blood Count 11.3 T/CUMM (4-12)
[2019-03-29 06:08] LABS: % Iron Saturation 17.6 % (18-50)
[2019-03-29 06:13] LABS: Albumin 1.8 G/DL (3.4-5.0); Bilirubin,Total 1.3 MG/DL (0.2-1.0); Calcium 6.6 MG/DL (8.5-10.1); Osmolality,Calculated 298.5 MOS/KG (273-304); Total Protein 6.2 G/DL (6.4-8.3)
[2019-03-29] MEDS: INSULIN REGULAR 100 UNIT/ML SUBCUT SCH ×4 (09:18→20:42)
[2019-03-29] MEDS: CALCIUM CARBONATE CHEW 500 MG TABLET PO SCH ×2 (09:19→20:37)
[2019-03-29] MEDS: TAMSULOSIN 0.4 MG CAPSULE PO SCH ×2 (09:19→20:38)
[2019-03-29] MEDS: ASPIRIN EC 81 MG TABLET PO SCH (09:19)
[2019-03-29] MEDS: FUROSEMIDE 80 MG TABLET PO SCH ×2 (09:19→17:21)
[2019-03-29] MEDS: DOCUSATE SODIUM 100 MG CAPSULE PO SCH ×2 (09:19→20:37)
[2019-03-29] MEDS: metOLazone 5 MG TABLET PO SCH (09:19)
[2019-03-29] MEDS: PANTOPRAZOLE 40 MG TABLET PO SCH (09:20)
[2019-03-29] MEDS: cloNIDine 0.1 MG TABLET PO SCH ×2 (09:20→20:38)
[2019-03-29] MEDS: DORZOLAMIDE/TIMOLOL OPH SOLN 10 ML BOTTLE BOTH EYES SCH ×2 (09:20→20:42)
[2019-03-29] MEDS: CARVEDILOL 25 MG TABLET PO SCH ×2 (09:20→20:38)
[2019-03-29] MEDS: IRON SUCROSE 200 MG in SODIUM CHLORIDE 0.9% 100 ML IV SCH (09:26)
[2019-03-29] MEDS: amLODIPine 5 MG TABLET PO SCH (12:43)
[2019-03-29] MEDS: SIMVASTATIN 20 MG TABLET PO SCH (20:37)
[2019-03-29] MEDS ORDERED: metOLazone 5 MG TABLET PO SCH (21:00)
[2019-03-30 05:28] LABS: Basophils # 0.1 10*3/uL (0.0-0.2); Basophils % 0.5 % (0.0-0.8); Eosinophils # 0.4 10*3/uL (0.0-0.87); Eosinophils % 3.3 % (0.00-10.9); Hematocrit 23.9 VOL% (42.0-52.0); Hemoglobin 7.7 GM/DL (14.0-18.0); Immature Granulocytes % 1.2 %; Immature Granulocytes Absolute 0.13 #; Lymphocytes # 1.2 10*3/uL (1.4-4.0); Lymphocytes % 11.2 % (21.2-54.2); Mean Corpuscular HGB Conc 32.2 GM/DL (32-36); Mean Corpuscular Volume 90.5 FL (87-102); Mean Platelet Volume 9.6 FL (9.6-12.0); Monocytes % 9.1 % (1.7-12.7); Neutrophils % 74.7 % (38.7-73.9); Platelet Count 340 T/CUMM (130-400); Red Blood Count 2.64 MC/CUMM (3.8-5.5); Red Cell Distribution Width 13.7 % (9.3-17.3); White Blood Count 10.5 T/CUMM (4-12)
[2019-03-30 05:45] LABS: Alanine Aminotransferase 13 U/L (16-61); Albumin 2.1 G/DL (3.4-5.0); Alkaline Phosphatase 185 U/L (45-117); Aspartate Amino Transferase 6 U/L (0-37); Bilirubin,Total < 0.39 MG/DL (0.2-1.0); Blood Urea Nitrogen 73 MG/DL (7-18); Glucose 126 MG/DL (74-106); Osmolality,Calculated 298.7 MOS/KG (273-304); Total Protein 6.4 G/DL (6.4-8.3)
[2019-03-30] MEDS: INSULIN REGULAR 100 UNIT/ML SUBCUT SCH ×4 (08:41→21:24)
[2019-03-30] MEDS ORDERED: EPOETIN ALFA 2,000 UNIT/1 ML VIAL SUBCUT SCH (09:00)
[2019-03-30] MEDS: DORZOLAMIDE/TIMOLOL OPH SOLN 10 ML BOTTLE BOTH EYES SCH ×2 (09:17→20:40)
[2019-03-30] MEDS: IRON SUCROSE 200 MG in SODIUM CHLORIDE 0.9% 100 ML IV SCH (09:19)
[2019-03-30] MEDS ORDERED: ceFAZolin 1,000 MG in SYRINGE 1 EACH IV ONE (10:49)
[2019-03-30] MEDS ORDERED: LIDOCAINE 1%/EPI INJ 20 ML VIAL ONE (11:03)
[2019-03-30] MEDS ORDERED: HEPARIN 5,000 UNIT/1 ML VIAL ONE ×3 (11:03→11:27)
[2019-03-30] MEDS ORDERED: BUPIVACAINE 0.25% /EPI 10 ML VIAL ONE (11:03)
[2019-03-30] MEDS ORDERED: THROMBIN TOPICAL (RECOMBINANT) 5,000 UNIT VIAL TOP ONE (11:03)
[2019-03-30] MEDS ORDERED: SODIUM CHLORIDE 0.9% 250 ML IV SCH (12:00)
[2019-03-30] MEDS ORDERED: MIDAZOLAM 2 MG/2 ML VIAL ONE (13:50)
[2019-03-30] MEDS ORDERED: fentaNYL 100 MCG/2 ML VIAL ONE (13:50)
[2019-03-30] MEDS ORDERED: SEVOFLURANE 1 UNIT/15 MINUTE INH ONE (13:50)
[2019-03-30] MEDS ORDERED: PROPOFOL 200 MG/20 ML VIAL IV ONE (13:50)
[2019-03-30] MEDS ORDERED: ONDANSETRON 4 MG/2 ML VIAL ONE (13:51)
[2019-03-30] MEDS ORDERED: ePHEDrine 50 MG/ML AMP ONE (13:51)
[2019-03-30] MEDS ORDERED: PHENYLEPHRINE 1 MG/10 ML SYRINGE IV ONE (13:51)
[2019-03-30] MEDS: FUROSEMIDE 80 MG TABLET PO SCH ×2 (14:58→15:45)
[2019-03-30] MEDS: DOCUSATE SODIUM 100 MG CAPSULE PO SCH ×2 (14:59→20:40)
[2019-03-30] MEDS: CARVEDILOL 25 MG TABLET PO SCH ×2 (14:59→20:39)
[2019-03-30] MEDS: cloNIDine 0.1 MG TABLET PO SCH ×2 (14:59→20:39)
[2019-03-30] MEDS: ASPIRIN EC 81 MG TABLET PO SCH (14:59)
[2019-03-30] MEDS: TAMSULOSIN 0.4 MG CAPSULE PO SCH ×2 (15:00→20:39)
[2019-03-30] MEDS: amLODIPine 5 MG TABLET PO SCH (15:00)
[2019-03-30] MEDS: metOLazone 5 MG TABLET PO SCH (15:01)
[2019-03-30] MEDS: PANTOPRAZOLE 40 MG TABLET PO SCH (15:01)
[2019-03-30] MEDS: CALCIUM CARBONATE CHEW 500 MG TABLET PO SCH ×2 (15:01→20:39)
[2019-03-30] MEDS: SIMVASTATIN 20 MG TABLET PO SCH (20:39)
[2019-03-31] MEDS: INSULIN REGULAR 100 UNIT/ML SUBCUT SCH ×2 (07:19→11:42)
[2019-03-31 08:03] VITALS: BP 145/72
[2019-03-31] MEDS: CALCIUM CARBONATE CHEW 500 MG TABLET PO SCH (09:00)
[2019-03-31] MEDS: FUROSEMIDE 80 MG TABLET PO SCH (09:00)
[2019-03-31] MEDS: metOLazone 5 MG TABLET PO SCH (09:00)
[2019-03-31] MEDS: PANTOPRAZOLE 40 MG TABLET PO SCH (09:01)
[2019-03-31] MEDS: ASPIRIN EC 81 MG TABLET PO SCH (09:01)
[2019-03-31] MEDS: TAMSULOSIN 0.4 MG CAPSULE PO SCH (09:01)
[2019-03-31] MEDS: amLODIPine 5 MG TABLET PO SCH (09:01)
[2019-03-31] MEDS: DOCUSATE SODIUM 100 MG CAPSULE PO SCH (09:01)
[2019-03-31] MEDS: cloNIDine 0.1 MG TABLET PO SCH (09:01)
[2019-03-31] MEDS: CARVEDILOL 25 MG TABLET PO SCH (09:01)
[2019-03-31] MEDS: DORZOLAMIDE/TIMOLOL OPH SOLN 10 ML BOTTLE BOTH EYES SCH (09:03)
[2019-03-31] MEDS: IRON SUCROSE 200 MG in SODIUM CHLORIDE 0.9% 100 ML IV SCH (09:06)
== END 2019-03-31 11:46 | disposition home or self-care (01) | DRG 673 ==
LOC: N.2E 17:17 → SUATTDRO 17:17 → INTOOBSV 17:17
PROVIDERS: ADMIT Internal Medicine; ATTEND Internal Medicine

== ENCOUNTER 2019-06-19 14:38 | Inpatient (IN) ==
[2019-06-19] MEDS ORDERED: ONDANSETRON 4 MG/2 ML VIAL IV STA (17:04)
[2019-06-19] MEDS ORDERED: MORPHINE 4 MG/1 ML VIAL IV STA (17:04)
[2019-06-19] MEDS ORDERED: hydrALAZINE 20 MG/1 ML VIAL IV STA (17:04)
[2019-06-19 17:35] LABS: Basophils % 0.6 % (0.0-0.8); Eosinophils # 0.2 10*3/uL (0.0-0.87); Eosinophils % 2.5 % (0.00-10.9); Hematocrit 30.2 VOL% (42.0-52.0); Hemoglobin 9.4 GM/DL (14.0-18.0); Immature Granulocytes % 0.6 %; Immature Granulocytes Absolute 0.04 #; Lymphocytes # 0.7 10*3/uL (1.4-4.0); Lymphocytes % 9.3 % (21.2-54.2); Mean Corpuscular HGB Conc 31.1 GM/DL (32-36); Mean Corpuscular Volume 97.4 FL (87-102); Mean Platelet Volume 8.9 FL (9.6-12.0); Monocytes % 8.7 % (1.7-12.7); Neutrophils % 78.3 % (38.7-73.9); Platelet Count 238 T/CUMM (130-400); Red Cell Distribution Width 15.8 % (9.3-17.3); White Blood Count 7.2 T/CUMM (4-12)
[2019-06-19 17:40] LABS: PT Patient Result 10.4 SECS (9.6-12.2)
[2019-06-19 18:00] LABS: Alanine Aminotransferase 22 U/L (16-61); Albumin 2.6 G/DL (3.4-5.0); Alkaline Phosphatase 218 U/L (45-117); Aspartate Amino Transferase 14 U/L (0-37); Bilirubin,Total < 0.39 MG/DL (0.2-1.0); Blood Urea Nitrogen 81 MG/DL (7-18); Calcium 6.7 MG/DL (8.5-10.1); Estimated Glom Filtration Rate 7 ML/MIN; Glucose 168 MG/DL (74-106); Total Protein 7.2 G/DL (6.4-8.3)
[2019-06-19] MEDS ORDERED: DEXTROSE 10% 250 ML BAG IV PRN (18:50)
[2019-06-19] MEDS ORDERED: ONDANSETRON 4 MG/2 ML VIAL IV PRN (18:50)
[2019-06-19] MEDS ORDERED: GLUCAGON 1 MG VIAL IM PRN (18:50)
[2019-06-19] MEDS ORDERED: LABETALOL 20 MG/4 ML SYRINGE IV STA (20:03)
[2019-06-19] MEDS: INSULIN REGULAR 100 UNIT/ML SUBCUT SCH (21:56)
[2019-06-19] MEDS: ENOXAPARIN 30 MG/0.3 ML SYRINGE SUBCUT SCH (22:12)
[2019-06-19] MEDS ORDERED: INFLUENZA VIRUS VACCINE 0.5 ML SYRINGE IM ONE (22:26)
[2019-06-19] MEDS ORDERED: PNEUMOCOCCAL VACCINE (13 VALENT) 0.5 ML SYRINGE IM ONE (22:26)
[2019-06-20] MEDS: INSULIN REGULAR 100 UNIT/ML SUBCUT SCH ×4 (08:42→21:16)
[2019-06-20] MEDS ORDERED: CALCIUM GLUCONATE 2,000 MG in SODIUM CHLORIDE 0.9% 100 ML IV PRN (09:35)
[2019-06-20] MEDS: FUROSEMIDE 40 MG/4 ML VIAL IV SCH ×2 (09:58→17:53)
[2019-06-20] MEDS: hydrALAZINE 20 MG/1 ML VIAL IV PRN (17:57)
[2019-06-20] MEDS: carvediloL 25 MG TABLET PO SCH (21:16)
[2019-06-20] MEDS: ENOXAPARIN 30 MG/0.3 ML SYRINGE SUBCUT SCH (21:16)
[2019-06-20] MEDS: cloNIDine 0.1 MG TABLET PO SCH (21:16)
[2019-06-21] MEDS: FUROSEMIDE 40 MG/4 ML VIAL IV SCH ×3 (00:33→17:25)
[2019-06-21] MEDS: hydrALAZINE 20 MG/1 ML VIAL IV PRN (00:33)
[2019-06-21] MEDS: INSULIN REGULAR 100 UNIT/ML SUBCUT SCH ×4 (07:34→21:25)
[2019-06-21] MEDS: amLODIPine 5 MG TABLET PO SCH (11:00)
[2019-06-21] MEDS: carvediloL 25 MG TABLET PO SCH ×2 (11:00→21:24)
[2019-06-21] MEDS: cloNIDine 0.1 MG TABLET PO SCH ×2 (11:00→21:24)
[2019-06-21] MEDS ORDERED: LIDOCAINE/PRILOCAINE CREAM 5 GM TUBE TOP STA (11:27)
[2019-06-21 15:19] LABS: Hepatitis B Core IgM Quant 0.09 Index; Hepatitis B Surface Ag Quant < 0.10 Index; Hepatitis B Surface Ag Result Negative (Negative); Hepatitis C Virus Ab Quant 0.04 Index; Hepatitis C Virus Ab Result Negative (Negative)
[2019-06-21] MEDS: TAMSULOSIN 0.4 MG CAPSULE PO SCH (21:24)
[2019-06-21] MEDS: CALCIUM CARBONATE CHEW 500 MG TABLET PO SCH (21:24)
[2019-06-21] MEDS: SIMVASTATIN 20 MG TABLET PO SCH (21:24)
[2019-06-21] MEDS: ENOXAPARIN 30 MG/0.3 ML SYRINGE SUBCUT SCH (21:25)
[2019-06-22] MEDS: FUROSEMIDE 40 MG/4 ML VIAL IV SCH ×2 (01:28→09:24)
[2019-06-22] MEDS: INSULIN REGULAR 100 UNIT/ML SUBCUT SCH ×3 (07:48→21:50)
[2019-06-22] MEDS: TAMSULOSIN 0.4 MG CAPSULE PO SCH ×2 (09:24→21:51)
[2019-06-22] MEDS: amLODIPine 5 MG TABLET PO SCH (09:24)
[2019-06-22] MEDS: cloNIDine 0.1 MG TABLET PO SCH ×2 (09:24→21:52)
[2019-06-22] MEDS: CALCIUM CARBONATE CHEW 500 MG TABLET PO SCH ×2 (09:24→21:52)
[2019-06-22] MEDS: carvediloL 25 MG TABLET PO SCH ×2 (09:24→21:52)
[2019-06-22] MEDS: ASPIRIN EC 81 MG TABLET PO SCH (09:24)
[2019-06-22] MEDS: SIMVASTATIN 20 MG TABLET PO SCH (21:51)
[2019-06-22] MEDS: ENOXAPARIN 30 MG/0.3 ML SYRINGE SUBCUT SCH (21:52)
[2019-06-23] MEDS: FUROSEMIDE 40 MG/4 ML VIAL IV SCH ×3 (01:36→09:41)
[2019-06-23] MEDS: INSULIN REGULAR 100 UNIT/ML SUBCUT SCH ×4 (06:36→16:55)
[2019-06-23] MEDS: amLODIPine 5 MG TABLET PO SCH (09:37)
[2019-06-23] MEDS: TAMSULOSIN 0.4 MG CAPSULE PO SCH (09:37)
[2019-06-23] MEDS: carvediloL 25 MG TABLET PO SCH (09:37)
[2019-06-23] MEDS: CALCIUM CARBONATE CHEW 500 MG TABLET PO SCH (09:37)
[2019-06-23] MEDS: ASPIRIN EC 81 MG TABLET PO SCH (09:37)
[2019-06-23] MEDS: cloNIDine 0.1 MG TABLET PO SCH (09:37)
[2019-06-23 15:54] VITALS: BP 139/68
== END 2019-06-23 18:50 | disposition home or self-care (01) | DRG 682 ==
LOC: N.ED 14:38 → N.EDINP 18:50 → N.5E 19:56
PROVIDERS: ADMIT Internal Medicine Geriatric Medicine; ATTEND Internal Medicine Geriatric Medicine

== ENCOUNTER 2019-10-09 21:20 | Observation (INO) ==
[2019-10-10] MEDS ORDERED: MORPHINE 4 MG/1 ML VIAL IV PRN (02:17)
[2019-10-10] MEDS: HEPARIN DRIP 25,000 UNITS/500 ML PREMIX IV SCH ×2 (02:57→09:01)
[2019-10-10 02:59] LABS: Basophils # 0.1 10*3/uL (0.0-0.2); Basophils % 0.5 % (0.0-0.8); Eosinophils # 0.5 10*3/uL (0.0-0.87); Eosinophils % 3.7 % (0.00-10.9); Hematocrit 33.1 VOL% (42.0-52.0); Immature Granulocytes % 0.4 %; Immature Granulocytes Absolute 0.05 #; Lymphocytes # 0.8 10*3/uL (1.4-4.0); Lymphocytes % 5.7 % (21.2-54.2); Mean Corpuscular HGB Conc 33.2 GM/DL (32-36); Mean Corpuscular Volume 91.2 FL (87-102); Mean Platelet Volume 9.5 FL (9.6-12.0); Monocytes % 9.3 % (1.7-12.7); Neutrophils % 80.4 % (38.7-73.9); Platelet Count 206 T/CUMM (130-400); Red Blood Count 3.63 MC/CUMM (3.8-5.5); Red Cell Distribution Width 14.2 % (9.3-17.3); White Blood Count 13.9 T/CUMM (4-12)
[2019-10-10] MEDS ORDERED: guaiFENesin/CODEINE 5 ML LIQUID PO PRN (03:31)
[2019-10-10 03:33] LABS: Albumin 3.1 G/DL (3.4-5.0); Bilirubin,Total 0.7 MG/DL (0.2-1.0); Calcium 7.8 MG/DL (8.5-10.1); Osmolality,Calculated 283.2 MOS/KG (273-304)
[2019-10-10 03:34] LABS: Risk Ratio 2.93
[2019-10-10] MEDS ORDERED: GLUCAGON 1 MG VIAL IM PRN (05:17)
[2019-10-10] MEDS ORDERED: DEXTROSE 50% 25 GM/50 ML VIAL IV PRN (05:17)
[2019-10-10] MEDS: ASPIRIN 325 MG TABLET PO SCH (05:46)
[2019-10-10] MEDS: cefTRIAXone 1,000 MG in SYRINGE 1 EACH IV SCH (05:46)
[2019-10-10] MEDS: INSULIN LISPRO 100 UNIT/ML SUBCUT SCH ×3 (06:14→17:01)
[2019-10-10 08:04] LABS: Troponin I 0.972 NG/ML (0.00-0.045)
[2019-10-10] MEDS: amLODIPine 5 MG TABLET PO SCH (08:45)
[2019-10-10] MEDS: TAMSULOSIN 0.4 MG CAPSULE PO SCH ×2 (08:46→21:02)
[2019-10-10] MEDS: carvediloL 25 MG TABLET PO SCH ×2 (08:46→17:01)
[2019-10-10] MEDS: CALCIUM CARBONATE CHEW 500 MG TABLET PO SCH ×2 (08:46→21:02)
[2019-10-10] MEDS: cloNIDine 0.1 MG TABLET PO SCH ×2 (08:46→21:02)
[2019-10-10] MEDS: DORZOLAMIDE/TIMOLOL OPH SOLN 10 ML BOTTLE BOTH EYES SCH ×2 (09:28→21:03)
[2019-10-10] MEDS ORDERED: EZETIMIBE 10 MG TABLET PO ONE (17:14)
[2019-10-10] MEDS: ALBUTEROL/IPRATROPIUM 3 ML NEB RESP TX SCH (19:06)
[2019-10-10] MEDS ORDERED: SIMVASTATIN 20 MG TABLET PO SCH (21:00)
[2019-10-11] MEDS: INSULIN LISPRO 100 UNIT/ML SUBCUT SCH ×3 (00:13→13:34)
[2019-10-11] MEDS: ALBUTEROL/IPRATROPIUM 3 ML NEB RESP TX SCH ×3 (00:29→13:51)
[2019-10-11] MEDS: HEPARIN DRIP 25,000 UNITS/500 ML PREMIX IV SCH (04:00)
[2019-10-11 04:53] LABS: Basophils % 0.3 % (0.0-0.8); Eosinophils # 0.7 10*3/uL (0.0-0.87); Eosinophils % 7.5 % (0.00-10.9); Hematocrit 27.3 VOL% (42.0-52.0); Hemoglobin 8.9 GM/DL (14.0-18.0); Immature Granulocytes % 0.4 %; Immature Granulocytes Absolute 0.04 #; Lymphocytes # 1.1 10*3/uL (1.4-4.0); Mean Corpuscular HGB Conc 32.6 GM/DL (32-36); Mean Corpuscular Volume 91.9 FL (87-102); Mean Platelet Volume 10.2 FL (9.6-12.0); Monocytes % 11.7 % (1.7-12.7); Neutrophils % 69.1 % (38.7-73.9); Platelet Count 190 T/CUMM (130-400); Red Blood Count 2.97 MC/CUMM (3.8-5.5); Red Cell Distribution Width 14.4 % (9.3-17.3); White Blood Count 9.5 T/CUMM (4-12)
[2019-10-11 05:20] LABS: Calcium 7.3 MG/DL (8.5-10.1); Osmolality,Calculated 281.5 MOS/KG (273-304)
[2019-10-11] MEDS: cefTRIAXone 1,000 MG in SYRINGE 1 EACH IV SCH (06:19)
[2019-10-11] MEDS: amLODIPine 5 MG TABLET PO SCH (08:42)
[2019-10-11] MEDS: cloNIDine 0.1 MG TABLET PO SCH (08:43)
[2019-10-11] MEDS: ASPIRIN 325 MG TABLET PO SCH (08:43)
[2019-10-11] MEDS: CALCIUM CARBONATE CHEW 500 MG TABLET PO SCH (08:43)
[2019-10-11] MEDS: carvediloL 25 MG TABLET PO SCH (08:43)
[2019-10-11] MEDS: TAMSULOSIN 0.4 MG CAPSULE PO SCH (08:43)
[2019-10-11] MEDS: DORZOLAMIDE/TIMOLOL OPH SOLN 10 ML BOTTLE BOTH EYES SCH (08:46)
[2019-10-11] MEDS ORDERED: EZETIMIBE 10 MG TABLET PO SCH (09:00)
[2019-10-11] MEDS ORDERED: HEPARIN 10,000 UNIT/10 ML VIAL IV SCH (11:00)
[2019-10-11 13:38] VITALS: BP 120/66
== END 2019-10-11 14:00 | disposition home or self-care (01) ==
LOC: N.TELES 22:53 → SUATTDRO 22:53 → INTOOBSV 22:53
PROVIDERS: ADMIT Internal Medicine; ATTEND Hospitalist

== ENCOUNTER 2021-04-07 06:34 | Inpatient (IN) ==
[2021-04-02 08:28] LABS: Basophils # 0.1 10*3/uL (0.0-0.2); Basophils % 0.3 % (0.0-0.8); Eosinophils # 0.1 10*3/uL (0.0-0.87); Eosinophils % 0.7 % (0.00-10.9); Hematocrit 31.3 VOL% (42.0-52.0); Hemoglobin 9.9 GM/DL (14.0-18.0); Immature Granulocytes % 0.7 %; Immature Granulocytes Absolute 0.11 #; Lymphocytes # 1.2 10*3/uL (1.4-4.0); Lymphocytes % 7.1 % (21.2-54.2); Mean Corpuscular HGB Conc 31.6 GM/DL (32-36); Mean Corpuscular Volume 100.6 FL (87-102); Mean Platelet Volume 9.2 FL (9.6-12.0); Neutrophils % 84.2 % (38.7-73.9); Platelet Count 323 T/CUMM (130-400); Red Blood Count 3.11 MC/CUMM (3.8-5.5); Red Cell Distribution Width 14.2 % (9.3-17.3); White Blood Count 16.8 T/CUMM (4-12)
[2021-04-02 08:43] LABS: Albumin 3.4 G/DL (3.4-5.0); Bilirubin,Total 0.5 MG/DL (0.20-1.00); Calcium 8.1 MG/DL (8.5-10.1); Osmolality,Calculated 279.4 MOS/KG (273-304); Potassium 4.6 MMOL/L (3.5-5.1); Total Protein 7.7 G/DL (6.4-8.2)
[2021-04-07 07:53] LABS: Basophils % 0.2 % (0.0-0.8); Eosinophils # 0.1 10*3/uL (0.0-0.87); Eosinophils % 0.3 % (0.00-10.9); Hematocrit 26.1 VOL% (42.0-52.0); Hemoglobin 8.5 GM/DL (14.0-18.0); Immature Granulocytes % 1.3 %; Immature Granulocytes Absolute 0.26 #; Lymphocytes # 1.1 10*3/uL (1.4-4.0); Lymphocytes % 5.7 % (21.2-54.2); Mean Corpuscular HGB Conc 32.6 GM/DL (32-36); Mean Corpuscular Volume 98.9 FL (87-102); Monocytes % 7.2 % (1.7-12.7); Neutrophils % 85.3 % (38.7-73.9); Platelet Count 359 T/CUMM (130-400); Red Blood Count 2.64 MC/CUMM (3.8-5.5); Red Cell Distribution Width 14.4 % (9.3-17.3); White Blood Count 19.9 T/CUMM (4-12)
[2021-04-07] MEDS ORDERED: SODIUM CHLORIDE 0.9% 250 ML IV SCH (08:00)
[2021-04-07 08:02] LABS: PT Patient Result 10.8 SECS (10.5-12.0)
[2021-04-07] MEDS ORDERED: VANCOMYCIN INJ 1,000 MG in SODIUM CHLORIDE 0.9% 250 ML IV ONE (08:41)
[2021-04-07] MEDS ORDERED: VANCOMYCIN 1,000 MG VIAL ONE (08:49)
[2021-04-07] MEDS ORDERED: fentaNYL 100 MCG/2 ML VIAL IV ONE (09:00)
[2021-04-07] MEDS ORDERED: MIDAZOLAM 2 MG/2 ML VIAL IV ONE (09:00)
[2021-04-07] MEDS ORDERED: DIAZEPAM 5 MG TABLET PO ONE (09:00)
[2021-04-07] MEDS ORDERED: BUPIVACAINE 0.5% 50 ML VIAL ONE (10:12)
[2021-04-07] MEDS ORDERED: LIDOCAINE 2% 5 ML VIAL ONE (10:14)
[2021-04-07] MEDS ORDERED: SEVOFLURANE 1 UNIT/15 MINUTE INH ONE (10:14)
[2021-04-07] MEDS ORDERED: ETOMIDATE 40 MG/20 ML VIAL IV ONE (10:14)
[2021-04-07] MEDS ORDERED: propofoL 200 MG/20 ML VIAL IV ONE (10:14)
[2021-04-07] MEDS ORDERED: ePHEDrine 50 MG/ML VIAL ONE (10:55)
[2021-04-07] MEDS ORDERED: ONDANSETRON 4 MG/2 ML VIAL ONE (10:57)
[2021-04-07] MEDS ORDERED: CALCIUM CHLORIDE 1,000 MG/10 ML VIAL IV ONE (11:14)
[2021-04-07] MEDS ORDERED: BISACODYL 5 MG TABLET PO PRN (11:19)
[2021-04-07] MEDS ORDERED: ONDANSETRON 4 MG/2 ML VIAL IV PRN (11:19)
[2021-04-07] MEDS ORDERED: GLUCAGON 1 MG VIAL IM PRN (11:19)
[2021-04-07] MEDS ORDERED: DEXTROSE 50% 25 GM/50 ML VIAL IV PRN ×2 (11:19→18:10)
[2021-04-07] MEDS: SODIUM CHLORIDE 0.45% 1,000 ML IV SCH (16:22)
[2021-04-07] MEDS: DORZOLAMIDE/TIMOLOL OPH SOLN 10 ML BOTTLE BOTH EYES SCH ×2 (18:01→22:22)
[2021-04-07] MEDS: carvediloL 25 MG TABLET PO SCH (22:21)
[2021-04-07] MEDS: SULFAMETHOX/TRIMETHOPRIM 800-160 MG TABLET PO SCH (22:21)
[2021-04-08 05:25] LABS: Basophils # 0.1 10*3/uL (0.0-0.2); Basophils % 0.3 % (0.0-0.8); Eosinophils # 0.1 10*3/uL (0.0-0.87); Eosinophils % 0.8 % (0.00-10.9); Hematocrit 26.1 VOL% (42.0-52.0); Hemoglobin 8.4 GM/DL (14.0-18.0); Immature Granulocytes % 1.3 %; Immature Granulocytes Absolute 0.21 #; Lymphocytes # 0.9 10*3/uL (1.4-4.0); Lymphocytes % 5.7 % (21.2-54.2); Mean Corpuscular HGB Conc 32.2 GM/DL (32-36); Mean Corpuscular Volume 98.9 FL (87-102); Monocytes % 6.5 % (1.7-12.7); Neutrophils % 85.4 % (38.7-73.9); Platelet Count 423 T/CUMM (130-400); Red Blood Count 2.64 MC/CUMM (3.8-5.5); Red Cell Distribution Width 14.5 % (9.3-17.3); White Blood Count 16.1 T/CUMM (4-12)
[2021-04-08 05:52] LABS: Calcium 8.2 MG/DL (8.5-10.1); Osmolality,Calculated 284.8 MOS/KG (273-304); Potassium 4.2 MMOL/L (3.5-5.1)
[2021-04-08] MEDS: ENOXAPARIN 30 MG/0.3 ML SYRINGE SUBCUT SCH (06:15)
[2021-04-08] MEDS: SULFAMETHOX/TRIMETHOPRIM 800-160 MG TABLET PO SCH ×2 (09:21→23:20)
[2021-04-08] MEDS: DORZOLAMIDE/TIMOLOL OPH SOLN 10 ML BOTTLE BOTH EYES SCH ×3 (09:21→23:21)
[2021-04-08] MEDS: PANTOPRAZOLE 40 MG TABLET PO SCH (09:21)
[2021-04-08] MEDS: ASPIRIN EC 81 MG TABLET PO SCH (09:21)
[2021-04-08] MEDS: SODIUM CHLORIDE 0.45% 1,000 ML IV SCH (10:28)
[2021-04-08] MEDS: carvediloL 25 MG TABLET PO SCH ×2 (16:30)
[2021-04-08] MEDS: amLODIPine 5 MG TABLET PO SCH (16:30)
[2021-04-09] MEDS: ENOXAPARIN 30 MG/0.3 ML SYRINGE SUBCUT SCH (06:19)
[2021-04-09] MEDS ORDERED: HEPARIN/NACL 0.9% 2 UNITS/ML 4,000 UNIT/2,000 ML BAG IV ONE (07:33)
[2021-04-09] MEDS: carvediloL 25 MG TABLET PO SCH ×2 (07:35→17:02)
[2021-04-09] MEDS ORDERED: HEPARIN 5,000 UNIT/1 ML VIAL ONE (07:44)
[2021-04-09] MEDS ORDERED: MIDAZOLAM 2 MG/2 ML VIAL IV ONE (08:00)
[2021-04-09] MEDS ORDERED: fentaNYL 100 MCG/2 ML VIAL IV ONE (08:00)
[2021-04-09] MEDS ORDERED: HEPARIN 5,000 UNIT/1 ML VIAL IV ONE (08:28)
[2021-04-09] MEDS: SULFAMETHOX/TRIMETHOPRIM 800-160 MG TABLET PO SCH ×2 (11:22→21:44)
[2021-04-09] MEDS: PANTOPRAZOLE 40 MG TABLET PO SCH (11:22)
[2021-04-09] MEDS: ASPIRIN EC 81 MG TABLET PO SCH (11:22)
[2021-04-09] MEDS: amLODIPine 5 MG TABLET PO SCH (11:22)
[2021-04-09] MEDS: DORZOLAMIDE/TIMOLOL OPH SOLN 10 ML BOTTLE BOTH EYES SCH ×3 (11:22→21:45)
[2021-04-09] MEDS: SODIUM CHLORIDE 0.45% 1,000 ML IV SCH (11:23)
[2021-04-10] MEDS: ENOXAPARIN 30 MG/0.3 ML SYRINGE SUBCUT SCH (06:17)
[2021-04-10] MEDS ORDERED: EPOETIN ALFA-EPBX 10,000 UNIT/ML VIAL IV PRN (07:44)
[2021-04-10] MEDS: SODIUM CHLORIDE 0.45% 1,000 ML IV SCH (09:40)
[2021-04-10] MEDS: ASPIRIN EC 81 MG TABLET PO SCH (13:09)
[2021-04-10] MEDS: amLODIPine 5 MG TABLET PO SCH (13:09)
[2021-04-10] MEDS: PANTOPRAZOLE 40 MG TABLET PO SCH (13:10)
[2021-04-10] MEDS: SULFAMETHOX/TRIMETHOPRIM 800-160 MG TABLET PO SCH ×2 (13:10→21:38)
[2021-04-10] MEDS: carvediloL 25 MG TABLET PO SCH ×2 (13:10→16:48)
[2021-04-10] MEDS: DORZOLAMIDE/TIMOLOL OPH SOLN 10 ML BOTTLE BOTH EYES SCH ×3 (13:13→21:38)
[2021-04-11] MEDS: ENOXAPARIN 30 MG/0.3 ML SYRINGE SUBCUT SCH (06:09)
[2021-04-11] MEDS: SULFAMETHOX/TRIMETHOPRIM 800-160 MG TABLET PO SCH ×2 (10:06→21:15)
[2021-04-11] MEDS: PANTOPRAZOLE 40 MG TABLET PO SCH (10:07)
[2021-04-11] MEDS: ASPIRIN EC 81 MG TABLET PO SCH (10:07)
[2021-04-11] MEDS: carvediloL 25 MG TABLET PO SCH ×2 (10:07→16:16)
[2021-04-11] MEDS: DORZOLAMIDE/TIMOLOL OPH SOLN 10 ML BOTTLE BOTH EYES SCH ×3 (10:08→21:15)
[2021-04-11] MEDS: amLODIPine 5 MG TABLET PO SCH (10:08)
[2021-04-12] MEDS: ENOXAPARIN 30 MG/0.3 ML SYRINGE SUBCUT SCH (05:56)
[2021-04-12 06:23] LABS: Basophils # 0.1 10*3/uL (0.0-0.2); Basophils % 0.4 % (0.0-0.8); Eosinophils # 0.5 10*3/uL (0.0-0.87); Eosinophils % 2.9 % (0.00-10.9); Hematocrit 21.8 VOL% (42.0-52.0); Hemoglobin 7.1 GM/DL (14.0-18.0); Immature Granulocytes % 3.9 %; Immature Granulocytes Absolute 0.61 #; Lymphocytes % 6.1 % (21.2-54.2); Mean Corpuscular HGB Conc 32.6 GM/DL (32-36); Mean Corpuscular Volume 99.5 FL (87-102); Mean Platelet Volume 8.8 FL (9.6-12.0); Monocytes % 7.8 % (1.7-12.7); Neutrophils % 78.9 % (38.7-73.9); Platelet Count 432 T/CUMM (130-400); Red Blood Count 2.19 MC/CUMM (3.8-5.5); Red Cell Distribution Width 14.5 % (9.3-17.3); White Blood Count 15.6 T/CUMM (4-12)
[2021-04-12 06:47] LABS: Band Neutrophils 1 % (0-10); Eosinophils 2 % (0-10); Hypochromasia 1+; Lymphocytes 5 % (20-55); Microcytosis 1+; Platelet Estimate Adequate; Segmented Neutrophils 85 % (50-85); Total Cells Counted 100
[2021-04-12] MEDS: amLODIPine 5 MG TABLET PO SCH (09:50)
[2021-04-12] MEDS: ASPIRIN EC 81 MG TABLET PO SCH (09:52)
[2021-04-12] MEDS: SULFAMETHOX/TRIMETHOPRIM 800-160 MG TABLET PO SCH ×2 (09:52→21:06)
[2021-04-12] MEDS: carvediloL 25 MG TABLET PO SCH ×2 (09:52→18:15)
[2021-04-12] MEDS: PANTOPRAZOLE 40 MG TABLET PO SCH (09:53)
[2021-04-12] MEDS: DORZOLAMIDE/TIMOLOL OPH SOLN 10 ML BOTTLE BOTH EYES SCH ×3 (09:53→21:06)
[2021-04-13] MEDS: ENOXAPARIN 30 MG/0.3 ML SYRINGE SUBCUT SCH (05:12)
[2021-04-13] MEDS: amLODIPine 5 MG TABLET PO SCH (08:19)
[2021-04-13] MEDS: carvediloL 25 MG TABLET PO SCH ×2 (08:19→17:48)
[2021-04-13] MEDS: SULFAMETHOX/TRIMETHOPRIM 800-160 MG TABLET PO SCH ×2 (08:20→21:59)
[2021-04-13] MEDS: ASPIRIN EC 81 MG TABLET PO SCH (08:20)
[2021-04-13] MEDS: PANTOPRAZOLE 40 MG TABLET PO SCH (08:20)
[2021-04-13] MEDS: DORZOLAMIDE/TIMOLOL OPH SOLN 10 ML BOTTLE BOTH EYES SCH ×3 (08:20→22:00)
[2021-04-13] MEDS ORDERED: VANCOMYCIN INJ 1,000 MG in SODIUM CHLORIDE 0.9% 250 ML IV ONE (15:40)
[2021-04-14] MEDS: ENOXAPARIN 30 MG/0.3 ML SYRINGE SUBCUT SCH (05:56)
[2021-04-14] MEDS: PANTOPRAZOLE 40 MG TABLET PO SCH (08:35)
[2021-04-14] MEDS: amLODIPine 5 MG TABLET PO SCH (08:35)
[2021-04-14] MEDS: SULFAMETHOX/TRIMETHOPRIM 800-160 MG TABLET PO SCH ×2 (08:35→20:44)
[2021-04-14] MEDS: DORZOLAMIDE/TIMOLOL OPH SOLN 10 ML BOTTLE BOTH EYES SCH ×3 (08:36→20:45)
[2021-04-14] MEDS: ASPIRIN EC 81 MG TABLET PO SCH (08:37)
[2021-04-14] MEDS: carvediloL 25 MG TABLET PO SCH ×2 (08:38→16:26)
[2021-04-14 08:57] LABS: Basophils # 0.1 10*3/uL (0.0-0.2); Basophils % 0.3 % (0.0-0.8); Eosinophils # 0.4 10*3/uL (0.0-0.87); Eosinophils % 2.4 % (0.00-10.9); Hematocrit 23.4 VOL% (42.0-52.0); Hemoglobin 7.2 GM/DL (14.0-18.0); Immature Granulocytes % 4.6 %; Lymphocytes # 1.1 10*3/uL (1.4-4.0); Lymphocytes % 7.5 % (21.2-54.2); Mean Corpuscular HGB Conc 30.8 GM/DL (32-36); Mean Corpuscular Volume 101.7 FL (87-102); Mean Platelet Volume 8.6 FL (9.6-12.0); Monocytes % 7.6 % (1.7-12.7); Neutrophils % 77.6 % (38.7-73.9); Platelet Count 469 T/CUMM (130-400); Red Cell Distribution Width 14.6 % (9.3-17.3); White Blood Count 15.3 T/CUMM (4-12)
[2021-04-14 09:19] LABS: Band Neutrophils 1 % (0-10); Eosinophils 1 % (0-10); Lymphocytes 7 % (20-55); Metamyelocytes 3 %; Myelocytes 1 %; Segmented Neutrophils 76 % (50-85); Total Cells Counted 100
[2021-04-14 09:20] LABS: Anisocytosis 1+; Macrocytosis 1+; Platelet Estimate Normal
[2021-04-14] MEDS ORDERED: BUPIVACAINE 0.5% 50 ML VIAL ONE (09:23)
[2021-04-14 09:26] LABS: Calcium 8.1 MG/DL (8.5-10.1); Potassium 4.6 MMOL/L (3.5-5.1)
[2021-04-14] MEDS ORDERED: fentaNYL 100 MCG/2 ML VIAL ONE (09:51)
[2021-04-14] MEDS ORDERED: MIDAZOLAM 2 MG/2 ML VIAL ONE (09:52)
[2021-04-14] MEDS ORDERED: SODIUM CHLORIDE 0.9% 250 ML IV SCH (10:00)
[2021-04-14] MEDS ORDERED: propofoL 200 MG/20 ML VIAL IV ONE (10:25)
[2021-04-14] MEDS ORDERED: LIDOCAINE 2% 5 ML VIAL ONE (10:25)
[2021-04-14] MEDS ORDERED: DEXMEDETOMIDINE 200 MCG/2 ML VIAL ONE (10:25)
[2021-04-15] MEDS: carvediloL 25 MG TABLET PO SCH ×2 (13:16→16:35)
[2021-04-15] MEDS: DORZOLAMIDE/TIMOLOL OPH SOLN 10 ML BOTTLE BOTH EYES SCH ×3 (13:17→20:35)
[2021-04-15] MEDS: ASPIRIN EC 81 MG TABLET PO SCH (13:21)
[2021-04-15] MEDS: amLODIPine 5 MG TABLET PO SCH (13:21)
[2021-04-15] MEDS: PANTOPRAZOLE 40 MG TABLET PO SCH (13:21)
[2021-04-15] MEDS: INSULIN REGULAR 100 UNIT/ML SUBCUT SCH (22:25)
[2021-04-16] MEDS: ENOXAPARIN 30 MG/0.3 ML SYRINGE SUBCUT SCH (06:14)
[2021-04-16] MEDS: INSULIN REGULAR 100 UNIT/ML SUBCUT SCH ×4 (08:26→21:17)
[2021-04-16] MEDS: DORZOLAMIDE/TIMOLOL OPH SOLN 10 ML BOTTLE BOTH EYES SCH ×3 (08:58→20:16)
[2021-04-16] MEDS: PANTOPRAZOLE 40 MG TABLET PO SCH (08:58)
[2021-04-16] MEDS: ASPIRIN EC 81 MG TABLET PO SCH (08:58)
[2021-04-16] MEDS: amLODIPine 5 MG TABLET PO SCH (08:58)
[2021-04-16] MEDS: carvediloL 25 MG TABLET PO SCH ×2 (08:58→16:28)
[2021-04-17] MEDS: ENOXAPARIN 30 MG/0.3 ML SYRINGE SUBCUT SCH (05:55)
[2021-04-17] MEDS: INSULIN REGULAR 100 UNIT/ML SUBCUT SCH ×4 (07:25→21:10)
[2021-04-17] MEDS: ASPIRIN EC 81 MG TABLET PO SCH (08:14)
[2021-04-17] MEDS: carvediloL 25 MG TABLET PO SCH ×2 (08:14→16:19)
[2021-04-17] MEDS: amLODIPine 5 MG TABLET PO SCH (08:14)
[2021-04-17] MEDS: PANTOPRAZOLE 40 MG TABLET PO SCH (08:14)
[2021-04-17] MEDS: DORZOLAMIDE/TIMOLOL OPH SOLN 10 ML BOTTLE BOTH EYES SCH ×3 (08:15→21:10)
[2021-04-17] MEDS ORDERED: VANCOMYCIN INJ 1,000 MG in SODIUM CHLORIDE 0.9% 250 ML IV SCH (13:00)
[2021-04-17] MEDS ORDERED: VANCOMYCIN INJ 750 MG in SODIUM CHLORIDE 0.9% 250 ML IV PRN (13:36)
[2021-04-17] MEDS ORDERED: VANCOMYCIN INJ 2,000 MG in SODIUM CHLORIDE 0.9% 500 ML IV ONE (17:00)
[2021-04-18] MEDS: ENOXAPARIN 30 MG/0.3 ML SYRINGE SUBCUT SCH (06:35)
[2021-04-18] MEDS: carvediloL 25 MG TABLET PO SCH ×2 (08:17→16:17)
[2021-04-18] MEDS: PANTOPRAZOLE 40 MG TABLET PO SCH (08:17)
[2021-04-18] MEDS: amLODIPine 5 MG TABLET PO SCH (08:17)
[2021-04-18] MEDS: ASPIRIN EC 81 MG TABLET PO SCH (08:17)
[2021-04-18] MEDS: DORZOLAMIDE/TIMOLOL OPH SOLN 10 ML BOTTLE BOTH EYES SCH ×3 (08:19→20:49)
[2021-04-18] MEDS: INSULIN REGULAR 100 UNIT/ML SUBCUT SCH ×3 (13:48→20:49)
[2021-04-19 05:34] LABS: Basophils % 0.4 % (0.0-0.8); Eosinophils # 0.4 10*3/uL (0.0-0.87); Eosinophils % 3.1 % (0.00-10.9); Hematocrit 26.3 VOL% (42.0-52.0); Hemoglobin 8.5 GM/DL (14.0-18.0); Immature Granulocytes % 2.3 %; Immature Granulocytes Absolute 0.26 #; Lymphocytes # 0.9 10*3/uL (1.4-4.0); Lymphocytes % 8.2 % (21.2-54.2); Mean Corpuscular HGB Conc 32.3 GM/DL (32-36); Mean Corpuscular Volume 98.1 FL (87-102); Mean Platelet Volume 8.6 FL (9.6-12.0); Monocytes % 9.4 % (1.7-12.7); Neutrophils % 76.6 % (38.7-73.9); Platelet Count 454 T/CUMM (130-400); Red Blood Count 2.68 MC/CUMM (3.8-5.5); Red Cell Distribution Width 14.9 % (9.3-17.3); White Blood Count 11.3 T/CUMM (4-12)
[2021-04-19] MEDS: ENOXAPARIN 30 MG/0.3 ML SYRINGE SUBCUT SCH (05:36)
[2021-04-19 06:11] LABS: Osmolality,Calculated 278.2 MOS/KG (273-304); Potassium 5.3 MMOL/L (3.5-5.1)
[2021-04-19] MEDS: ASPIRIN EC 81 MG TABLET PO SCH (08:40)
[2021-04-19] MEDS: amLODIPine 5 MG TABLET PO SCH (08:40)
[2021-04-19] MEDS: carvediloL 25 MG TABLET PO SCH ×2 (08:41→16:12)
[2021-04-19] MEDS: PANTOPRAZOLE 40 MG TABLET PO SCH (08:41)
[2021-04-19] MEDS: DORZOLAMIDE/TIMOLOL OPH SOLN 10 ML BOTTLE BOTH EYES SCH ×3 (08:41→20:01)
[2021-04-19] MEDS: INSULIN REGULAR 100 UNIT/ML SUBCUT SCH ×4 (12:29→20:02)
[2021-04-20] MEDS: ENOXAPARIN 30 MG/0.3 ML SYRINGE SUBCUT SCH (05:57)
[2021-04-20] MEDS: ASPIRIN EC 81 MG TABLET PO SCH (08:27)
[2021-04-20] MEDS: amLODIPine 5 MG TABLET PO SCH (08:27)
[2021-04-20] MEDS: INSULIN REGULAR 100 UNIT/ML SUBCUT SCH ×4 (08:27→21:48)
[2021-04-20] MEDS: PANTOPRAZOLE 40 MG TABLET PO SCH (08:27)
[2021-04-20] MEDS: carvediloL 25 MG TABLET PO SCH ×2 (08:27→16:30)
[2021-04-20] MEDS: DORZOLAMIDE/TIMOLOL OPH SOLN 10 ML BOTTLE BOTH EYES SCH ×3 (08:28→21:48)
[2021-04-20] MEDS ORDERED: VANCOMYCIN INJ 750 MG in SODIUM CHLORIDE 0.9% 250 ML IV ONE (17:00)
[2021-04-21] MEDS: ENOXAPARIN 30 MG/0.3 ML SYRINGE SUBCUT SCH (05:46)
[2021-04-21] MEDS: INSULIN REGULAR 100 UNIT/ML SUBCUT SCH ×2 (08:12→12:02)
[2021-04-21] MEDS: PANTOPRAZOLE 40 MG TABLET PO SCH (08:23)
[2021-04-21] MEDS: ASPIRIN EC 81 MG TABLET PO SCH (08:23)
[2021-04-21] MEDS: DORZOLAMIDE/TIMOLOL OPH SOLN 10 ML BOTTLE BOTH EYES SCH (08:24)
[2021-04-21] MEDS: amLODIPine 5 MG TABLET PO SCH (08:24)
[2021-04-21] MEDS: carvediloL 25 MG TABLET PO SCH (08:24)
[2021-04-21 12:24] VITALS: BP 153/63
== END 2021-04-21 14:20 | disposition home health service (06) | DRG 239 ==
LOC: N.RAD 06:34 → N.SDSINP 06:36 → N.TELEN 17:17 → N.3E 04-19 21:23
PROVIDERS: ADMIT Surgery; ATTEND Surgery
PROC: IRAGPEL (2021-04-09 08:00)

== ENCOUNTER 2021-06-26 17:03 | Inpatient (IN) ==
[2021-06-26] MEDS ORDERED: VANCOMYCIN INJ 1,250 MG in SODIUM CHLORIDE 0.9% 250 ML IV STA (17:46)
[2021-06-26] MEDS ORDERED: SODIUM CHLORIDE 0.9% 250 ML IV STA (17:49)
[2021-06-26] MEDS ORDERED: VANCOMYCIN INJ 2,000 MG in SODIUM CHLORIDE 0.9% 500 ML IV STA (18:03)
[2021-06-26 18:08] LABS: Basophils # 0.1 10*3/uL (0.0-0.2); Basophils % 0.3 % (0.0-0.8); Eosinophils # 0.1 10*3/uL (0.0-0.87); Eosinophils % 0.4 % (0.00-10.9); Hematocrit 28.1 VOL% (42.0-52.0); Hemoglobin 8.6 GM/DL (14.0-18.0); Immature Granulocytes % 0.9 %; Immature Granulocytes Absolute 0.21 #; Lymphocytes # 0.7 10*3/uL (1.4-4.0); Mean Corpuscular HGB Conc 30.6 GM/DL (32-36); Mean Corpuscular Volume 98.9 FL (87-102); Mean Platelet Volume 9.3 FL (9.6-12.0); Monocytes % 11.9 % (1.7-12.7); Neutrophils % 83.5 % (38.7-73.9); Platelet Count 267 T/CUMM (130-400); Red Blood Count 2.84 MC/CUMM (3.8-5.5); Red Cell Distribution Width 17.5 % (9.3-17.3); White Blood Count 22.2 T/CUMM (4-12)
[2021-06-26 18:29] LABS: Albumin 2.6 G/DL (3.4-5.0); Bilirubin,Total 0.9 MG/DL (0.20-1.00); Osmolality,Calculated 289.7 MOS/KG (273-304); Potassium 3.9 MMOL/L (3.5-5.1); Total Protein 7.7 G/DL (6.4-8.2)
[2021-06-26 18:48] LABS: Band Neutrophils 1 % (0-10); Hypochromasia 1+; Lymphocytes 1 % (20-55); Metamyelocytes 1 %; Microcytosis 1+; Platelet Estimate Adequate; Segmented Neutrophils 91 % (50-85); Total Cells Counted 100
[2021-06-26 19:44] LABS: INR 1.3; PT Patient Result 13.8 SECS (10.5-12.0); Partial Thromboplastin Time 34.5 SECS (23.9-33.8)
[2021-06-26] MEDS ORDERED: DOCUSATE SODIUM 100 MG CAPSULE PO PRN (20:05)
[2021-06-26] MEDS ORDERED: DEXTROSE 50% 25 GM/50 ML VIAL IV PRN ×2 (20:05→20:08)
[2021-06-26] MEDS ORDERED: ONDANSETRON 4 MG/2 ML VIAL IV PRN (20:05)
[2021-06-26] MEDS ORDERED: GLUCAGON 1 MG VIAL IM PRN ×2 (20:05→20:08)
[2021-06-26] MEDS: INSULIN REGULAR 100 UNIT/ML SUBCUT SCH (22:10)
[2021-06-26] MEDS: DORZOLAMIDE/TIMOLOL OPH SOLN 10 ML BOTTLE BOTH EYES SCH (22:11)
[2021-06-26] MEDS: HEPARIN 5,000 UNIT/1 ML VIAL SUBCUT SCH (22:11)
[2021-06-26] MEDS: PIPERACILLIN/TAZOBACTAM 3,375 MG in SODIUM CHLORIDE 0.9% 100 ML IV SCH (22:32)
[2021-06-26] MEDS ORDERED: VANCOMYCIN INJ 750 MG in SODIUM CHLORIDE 0.9% 250 ML IV ONE (23:00)
[2021-06-27] MEDS: ACETAMINOPHEN 325 MG TABLET PO PRN (03:50)
[2021-06-27 05:32] LABS: Basophils # 0.1 10*3/uL (0.0-0.2); Basophils % 0.3 % (0.0-0.8); Eosinophils # 0.1 10*3/uL (0.0-0.87); Eosinophils % 0.7 % (0.00-10.9); Hematocrit 28.4 VOL% (42.0-52.0); Hemoglobin 8.9 GM/DL (14.0-18.0); Immature Granulocytes % 0.8 %; Immature Granulocytes Absolute 0.16 #; Lymphocytes # 0.6 10*3/uL (1.4-4.0); Lymphocytes % 3.1 % (21.2-54.2); Mean Corpuscular HGB Conc 31.3 GM/DL (32-36); Mean Corpuscular Volume 97.9 FL (87-102); Mean Platelet Volume 9.3 FL (9.6-12.0); Monocytes % 10.5 % (1.7-12.7); Neutrophils % 84.6 % (38.7-73.9); Platelet Count 276 T/CUMM (130-400); Red Cell Distribution Width 17.2 % (9.3-17.3)
[2021-06-27 05:58] LABS: Albumin 2.5 G/DL (3.4-5.0); Bilirubin,Total 1.6 MG/DL (0.20-1.00); Calcium 8.6 MG/DL (8.5-10.1); Thyroid Stimulating Hormone 1.14 uIU/ml (0.358-3.74); Total Protein 7.3 G/DL (6.4-8.2)
[2021-06-27 06:24] LABS: Band Neutrophils 3 % (0-10); Hypochromasia 1+; Lymphocytes 3 % (20-55); Segmented Neutrophils 90 % (50-85); Total Cells Counted 100
[2021-06-27 06:26] LABS: Anisocytosis 1+; Microcytosis 1+; Platelet Estimate Normal
[2021-06-27] MEDS: INSULIN REGULAR 100 UNIT/ML SUBCUT SCH ×4 (08:30→22:12)
[2021-06-27] MEDS: PANTOPRAZOLE 40 MG TABLET PO SCH (08:31)
[2021-06-27] MEDS: ASPIRIN EC 81 MG TABLET PO SCH (08:31)
[2021-06-27] MEDS: DORZOLAMIDE/TIMOLOL OPH SOLN 10 ML BOTTLE BOTH EYES SCH ×3 (10:25→22:14)
[2021-06-27] MEDS: PIPERACILLIN/TAZOBACTAM 3,375 MG in SODIUM CHLORIDE 0.9% 100 ML IV SCH ×2 (10:25→22:19)
[2021-06-27] MEDS: HEPARIN 5,000 UNIT/1 ML VIAL SUBCUT SCH ×2 (10:28→22:11)
[2021-06-27] MEDS ORDERED: DEXTROSE 50% 25 GM/50 ML VIAL IV PRN (12:46)
[2021-06-27] MEDS ORDERED: VANCOMYCIN INJ 750 MG in SODIUM CHLORIDE 0.9% 250 ML IV PRN (17:00)
[2021-06-27] MEDS ORDERED: VANCOMYCIN INJ 750 MG in SODIUM CHLORIDE 0.9% 250 ML IV ONE (21:00)
[2021-06-28] MEDS: ACETAMINOPHEN 325 MG TABLET PO PRN ×2 (03:16→23:15)
[2021-06-28 05:27] LABS: Basophils # 0.1 10*3/uL (0.0-0.2); Basophils % 0.3 % (0.0-0.8); Eosinophils % 0.1 % (0.00-10.9); Hematocrit 28.2 VOL% (42.0-52.0); Hemoglobin 8.7 GM/DL (14.0-18.0); Immature Granulocytes % 1.3 %; Immature Granulocytes Absolute 0.26 #; Lymphocytes # 0.9 10*3/uL (1.4-4.0); Lymphocytes % 4.6 % (21.2-54.2); Mean Corpuscular HGB Conc 30.9 GM/DL (32-36); Mean Corpuscular Volume 98.3 FL (87-102); Mean Platelet Volume 9.1 FL (9.6-12.0); Monocytes % 12.3 % (1.7-12.7); Neutrophils % 81.4 % (38.7-73.9); Platelet Count 354 T/CUMM (130-400); Red Blood Count 2.87 MC/CUMM (3.8-5.5); Red Cell Distribution Width 17.7 % (9.3-17.3); White Blood Count 19.7 T/CUMM (4-12)
[2021-06-28 05:48] LABS: Albumin 2.4 G/DL (3.4-5.0); Bilirubin,Total 2.3 MG/DL (0.20-1.00); Calcium 8.9 MG/DL (8.5-10.1); Osmolality,Calculated 276.1 MOS/KG (273-304); Potassium 3.9 MMOL/L (3.5-5.1); Total Protein 7.8 G/DL (6.4-8.2)
[2021-06-28 06:01] LABS: Band Neutrophils 1 % (0-10); Hypochromasia 1+; Lymphocytes 2 % (20-55); Microcytosis 1+; Platelet Estimate Adequate; Segmented Neutrophils 92 % (50-85); Total Cells Counted 100
[2021-06-28] MEDS ORDERED: glipiZIDE 5 MG TABLET PO SCH (09:00)
[2021-06-28] MEDS: PANTOPRAZOLE 40 MG TABLET PO SCH (09:44)
[2021-06-28] MEDS: DORZOLAMIDE/TIMOLOL OPH SOLN 10 ML BOTTLE BOTH EYES SCH ×3 (09:44→21:19)
[2021-06-28] MEDS: PIPERACILLIN/TAZOBACTAM 3,375 MG in SODIUM CHLORIDE 0.9% 100 ML IV SCH ×2 (09:44→21:09)
[2021-06-28] MEDS: ASPIRIN EC 81 MG TABLET PO SCH (09:44)
[2021-06-28] MEDS: HEPARIN 5,000 UNIT/1 ML VIAL SUBCUT SCH ×2 (09:45→21:11)
[2021-06-28] MEDS: INSULIN REGULAR 100 UNIT/ML SUBCUT SCH ×4 (09:45→21:10)
[2021-06-29 06:57] LABS: Basophils # 0.1 10*3/uL (0.0-0.2); Basophils % 0.3 % (0.0-0.8); Eosinophils # 0.1 10*3/uL (0.0-0.87); Eosinophils % 0.3 % (0.00-10.9); Hematocrit 26.2 VOL% (42.0-52.0); Hemoglobin 8.2 GM/DL (14.0-18.0); Immature Granulocytes % 2.2 %; Immature Granulocytes Absolute 0.54 #; Lymphocytes % 4.2 % (21.2-54.2); Mean Corpuscular HGB Conc 31.3 GM/DL (32-36); Mean Corpuscular Volume 95.6 FL (87-102); Monocytes % 9.4 % (1.7-12.7); Neutrophils % 83.6 % (38.7-73.9); Platelet Count 353 T/CUMM (130-400); Red Blood Count 2.74 MC/CUMM (3.8-5.5); Red Cell Distribution Width 18.1 % (9.3-17.3)
[2021-06-29 07:17] LABS: Hypochromasia 1+; Lymphocytes 4 % (20-55); Microcytosis 1+; Platelet Estimate Adequate; Segmented Neutrophils 88 % (50-85); Total Cells Counted 100
[2021-06-29 07:20] LABS: Albumin 2.2 G/DL (3.4-5.0); Bilirubin,Total 2.6 MG/DL (0.20-1.00); Calcium 8.5 MG/DL (8.5-10.1); Osmolality,Calculated 278.9 MOS/KG (273-304); Potassium 5.1 MMOL/L (3.5-5.1); Total Protein 7.6 G/DL (6.4-8.2)
[2021-06-29] MEDS: INSULIN REGULAR 100 UNIT/ML SUBCUT SCH ×4 (07:43→20:40)
[2021-06-29] MEDS: ASPIRIN EC 81 MG TABLET PO SCH (08:01)
[2021-06-29] MEDS: PANTOPRAZOLE 40 MG TABLET PO SCH (08:01)
[2021-06-29] MEDS: DORZOLAMIDE/TIMOLOL OPH SOLN 10 ML BOTTLE BOTH EYES SCH ×3 (08:04→20:40)
[2021-06-29] MEDS: PIPERACILLIN/TAZOBACTAM 3,375 MG in SODIUM CHLORIDE 0.9% 100 ML IV SCH ×2 (08:04→20:38)
[2021-06-29] MEDS ORDERED: SODIUM CHLORIDE 0.9% 250 ML IV SCH (10:00)
[2021-06-29] MEDS ORDERED: fentaNYL 100 MCG/2 ML VIAL ONE (10:33)
[2021-06-29] MEDS ORDERED: MIDAZOLAM 2 MG/2 ML VIAL ONE (10:33)
[2021-06-29] MEDS ORDERED: ONDANSETRON 4 MG/2 ML VIAL ONE (10:34)
[2021-06-29] MEDS ORDERED: PHENYLEPHRINE 1 MG/10 ML SYRINGE IV ONE ×2 (10:34→10:46)
[2021-06-29] MEDS ORDERED: propofoL 200 MG/20 ML VIAL IV ONE (10:34)
[2021-06-29] MEDS ORDERED: SEVOFLURANE 1 UNIT/15 MINUTE INH ONE (10:34)
[2021-06-29] MEDS ORDERED: LIDOCAINE 2% 5 ML VIAL ONE (10:34)
[2021-06-29] MEDS ORDERED: ePHEDrine 50 MG/ML VIAL ONE (10:39)
[2021-06-29] MEDS ORDERED: DEXTROSE 50% 25 GM/50 ML VIAL IV PRN (11:03)
[2021-06-29] MEDS ORDERED: GLUCAGON 1 MG VIAL IM PRN (11:03)
[2021-06-29] MEDS: HEPARIN 5,000 UNIT/1 ML VIAL SUBCUT SCH ×2 (12:14→20:40)
[2021-06-30 05:55] LABS: Basophils # 0.1 10*3/uL (0.0-0.2); Basophils % 0.4 % (0.0-0.8); Eosinophils # 0.2 10*3/uL (0.0-0.87); Eosinophils % 0.8 % (0.00-10.9); Hematocrit 25.6 VOL% (42.0-52.0); Hemoglobin 8.3 GM/DL (14.0-18.0); Immature Granulocytes % 3.4 %; Immature Granulocytes Absolute 0.67 #; Lymphocytes # 1.1 10*3/uL (1.4-4.0); Lymphocytes % 5.4 % (21.2-54.2); Mean Corpuscular HGB Conc 32.4 GM/DL (32-36); Mean Corpuscular Volume 95.9 FL (87-102); Mean Platelet Volume 9.5 FL (9.6-12.0); Monocytes % 7.3 % (1.7-12.7); Neutrophils % 82.7 % (38.7-73.9); Platelet Count 358 T/CUMM (130-400); Red Blood Count 2.67 MC/CUMM (3.8-5.5); Red Cell Distribution Width 18.6 % (9.3-17.3); White Blood Count 19.8 T/CUMM (4-12)
[2021-06-30 06:21] LABS: Eosinophils 2 % (0-10); Hypochromasia 1+; Lymphocytes 8 % (20-55); Microcytosis 1+; Platelet Estimate Adequate; Segmented Neutrophils 82 % (50-85); Total Cells Counted 100
[2021-06-30 06:42] LABS: Bilirubin,Total 4.5 MG/DL (0.20-1.00); Osmolality,Calculated 270.6 MOS/KG (273-304); Potassium 5.3 MMOL/L (3.5-5.1); Total Protein 7.4 G/DL (6.4-8.2)
[2021-06-30] MEDS: INSULIN REGULAR 100 UNIT/ML SUBCUT SCH ×4 (07:46→20:39)
[2021-06-30] MEDS: PANTOPRAZOLE 40 MG TABLET PO SCH (08:45)
[2021-06-30] MEDS: ASPIRIN EC 81 MG TABLET PO SCH (08:45)
[2021-06-30] MEDS: HEPARIN 5,000 UNIT/1 ML VIAL SUBCUT SCH ×2 (08:46→20:39)
[2021-06-30] MEDS: DORZOLAMIDE/TIMOLOL OPH SOLN 10 ML BOTTLE BOTH EYES SCH ×3 (08:46→20:39)
[2021-06-30] MEDS: PIPERACILLIN/TAZOBACTAM 3,375 MG in SODIUM CHLORIDE 0.9% 100 ML IV SCH ×2 (08:47→20:39)
[2021-06-30] MEDS ORDERED: VANCOMYCIN INJ 750 MG in SODIUM CHLORIDE 0.9% 250 ML IV ONE (17:00)
[2021-06-30] MEDS: SODIUM HYPOCHLORITE 0.25% IRRIG 473 ML BOTTLE TOP SCH (18:42)
[2021-07-01 08:23] LABS: Basophils # 0.1 10*3/uL (0.0-0.2); Basophils % 0.3 % (0.0-0.8); Eosinophils # 0.1 10*3/uL (0.0-0.87); Eosinophils % 0.6 % (0.00-10.9); Hemoglobin 7.8 GM/DL (14.0-18.0); Immature Granulocytes % 3.5 %; Immature Granulocytes Absolute 0.72 #; Lymphocytes # 0.8 10*3/uL (1.4-4.0); Mean Corpuscular HGB Conc 31.2 GM/DL (32-36); Mean Corpuscular Volume 95.8 FL (87-102); Mean Platelet Volume 9.1 FL (9.6-12.0); Monocytes % 8.8 % (1.7-12.7); Neutrophils % 82.8 % (38.7-73.9); Platelet Count 409 T/CUMM (130-400); Red Blood Count 2.61 MC/CUMM (3.8-5.5); Red Cell Distribution Width 18.7 % (9.3-17.3); White Blood Count 20.7 T/CUMM (4-12)
[2021-07-01 08:43] LABS: Eosinophils 1 % (0-10); Hypochromasia 1+; Lymphocytes 4 % (20-55); Platelet Estimate Adequate; Segmented Neutrophils 87 % (50-85); Total Cells Counted 100
[2021-07-01 08:44] LABS: Microcytosis 1+
[2021-07-01 08:46] LABS: Bilirubin,Total 5.3 MG/DL (0.20-1.00); Calcium 8.6 MG/DL (8.5-10.1); Osmolality,Calculated 267.2 MOS/KG (273-304); Potassium 4.6 MMOL/L (3.5-5.1); Total Protein 7.6 G/DL (6.4-8.2)
[2021-07-01] MEDS: PIPERACILLIN/TAZOBACTAM 3,375 MG in SODIUM CHLORIDE 0.9% 100 ML IV SCH (09:18)
[2021-07-01] MEDS: DORZOLAMIDE/TIMOLOL OPH SOLN 10 ML BOTTLE BOTH EYES SCH ×3 (09:18→21:33)
[2021-07-01] MEDS: ASPIRIN EC 81 MG TABLET PO SCH (09:19)
[2021-07-01] MEDS: PANTOPRAZOLE 40 MG TABLET PO SCH (09:19)
[2021-07-01] MEDS: HEPARIN 5,000 UNIT/1 ML VIAL SUBCUT SCH ×2 (09:20→21:33)
[2021-07-01] MEDS: INSULIN REGULAR 100 UNIT/ML SUBCUT SCH ×4 (10:28→21:34)
[2021-07-01] MEDS: SODIUM HYPOCHLORITE 0.25% IRRIG 473 ML BOTTLE TOP SCH (11:02)
[2021-07-01] MEDS ORDERED: cefTRIAXone 1,000 MG in SODIUM CHLORIDE 0.9% 100 ML IV SCH (17:00)
[2021-07-02 06:07] LABS: Basophils # 0.1 10*3/uL (0.0-0.2); Basophils % 0.3 % (0.0-0.8); Eosinophils # 0.2 10*3/uL (0.0-0.87); Eosinophils % 0.9 % (0.00-10.9); Hematocrit 24.2 VOL% (42.0-52.0); Hemoglobin 7.6 GM/DL (14.0-18.0); Immature Granulocytes % 4.3 %; Immature Granulocytes Absolute 0.81 #; Lymphocytes # 0.9 10*3/uL (1.4-4.0); Lymphocytes % 4.7 % (21.2-54.2); Mean Corpuscular HGB Conc 31.4 GM/DL (32-36); Mean Corpuscular Volume 95.7 FL (87-102); Mean Platelet Volume 9.2 FL (9.6-12.0); Monocytes % 6.1 % (1.7-12.7); Neutrophils % 83.7 % (38.7-73.9); Platelet Count 422 T/CUMM (130-400); Red Blood Count 2.53 MC/CUMM (3.8-5.5); Red Cell Distribution Width 18.6 % (9.3-17.3); White Blood Count 18.9 T/CUMM (4-12)
[2021-07-02 06:27] LABS: Albumin 1.9 G/DL (3.4-5.0); Bilirubin,Total 6.4 MG/DL (0.20-1.00); Calcium 8.3 MG/DL (8.5-10.1); Osmolality,Calculated 268.6 MOS/KG (273-304); Total Protein 7.3 G/DL (6.4-8.2)
[2021-07-02 06:42] LABS: Band Neutrophils 3 % (0-10); Hypochromasia 1+; Lymphocytes 5 % (20-55); Platelet Estimate Increased; Segmented Neutrophils 83 % (50-85); Total Cells Counted 100
[2021-07-02 07:45] LABS: Hepatitis B Core IgM Quant 0.07 Index; Hepatitis B Surface Ag Quant < 0.10 Index; Hepatitis B Surface Ag Result Non-Reactive (NonReactive); Hepatitis C Virus Ab Quant 0.05 Index; Hepatitis C Virus Ab Result Non-Reactive (NonReactive)
[2021-07-02] MEDS: INSULIN REGULAR 100 UNIT/ML SUBCUT SCH ×4 (08:29→21:20)
[2021-07-02] MEDS: DORZOLAMIDE/TIMOLOL OPH SOLN 10 ML BOTTLE BOTH EYES SCH ×3 (12:20→21:20)
[2021-07-02] MEDS: ASPIRIN EC 81 MG TABLET PO SCH (12:20)
[2021-07-02] MEDS: SODIUM HYPOCHLORITE 0.25% IRRIG 473 ML BOTTLE TOP SCH (12:20)
[2021-07-02] MEDS: PANTOPRAZOLE 40 MG TABLET PO SCH (12:20)
[2021-07-02] MEDS: HEPARIN 5,000 UNIT/1 ML VIAL SUBCUT SCH ×2 (12:23→21:20)
[2021-07-03 04:14] LABS: Albumin 1.8 G/DL (3.4-5.0); Bilirubin,Indirect 1.3 MG/DL (0.0-1.0); Bilirubin,Total 6.3 MG/DL (0.20-1.00); Total Protein 7.2 G/DL (6.4-8.2)
[2021-07-03] MEDS: INSULIN REGULAR 100 UNIT/ML SUBCUT SCH ×4 (09:31→21:40)
[2021-07-03] MEDS: SODIUM HYPOCHLORITE 0.25% IRRIG 473 ML BOTTLE TOP SCH (10:28)
[2021-07-03] MEDS: PANTOPRAZOLE 40 MG TABLET PO SCH (10:28)
[2021-07-03] MEDS: LEVOFLOXACIN INJ 500 MG/100 ML PREMIX IV SCH (10:29)
[2021-07-03] MEDS: ASPIRIN EC 81 MG TABLET PO SCH (10:29)
[2021-07-03] MEDS: HEPARIN 5,000 UNIT/1 ML VIAL SUBCUT SCH ×2 (10:33→21:38)
[2021-07-03] MEDS: DORZOLAMIDE/TIMOLOL OPH SOLN 10 ML BOTTLE BOTH EYES SCH ×3 (10:35→21:38)
[2021-07-03] MEDS: COLLAGENASE OINT 30 GM TUBE TOP SCH (12:23)
[2021-07-04 04:50] LABS: Basophils # 0.1 10*3/uL (0.0-0.2); Basophils % 0.3 % (0.0-0.8); Eosinophils # 0.3 10*3/uL (0.0-0.87); Eosinophils % 1.2 % (0.00-10.9); Hematocrit 25.8 VOL% (42.0-52.0); Immature Granulocytes % 4.9 %; Immature Granulocytes Absolute 1.07 #; Lymphocytes % 4.7 % (21.2-54.2); Mean Corpuscular Volume 95.6 FL (87-102); Mean Platelet Volume 9.3 FL (9.6-12.0); Neutrophils % 81.9 % (38.7-73.9); Platelet Count 513 T/CUMM (130-400); Red Cell Distribution Width 18.9 % (9.3-17.3); White Blood Count 21.7 T/CUMM (4-12)
[2021-07-04 05:17] LABS: Calcium 8.5 MG/DL (8.5-10.1); Osmolality,Calculated 269.5 MOS/KG (273-304); Potassium 4.9 MMOL/L (3.5-5.1)
[2021-07-04 05:25] LABS: Eosinophils 1 % (0-10); Lymphocytes 5 % (20-55); Platelet Estimate Increased; Segmented Neutrophils 85 % (50-85)
[2021-07-04 05:26] LABS: Total Cells Counted 100
[2021-07-04] MEDS: PANTOPRAZOLE 40 MG TABLET PO SCH (08:25)
[2021-07-04] MEDS: ASPIRIN EC 81 MG TABLET PO SCH (08:25)
[2021-07-04] MEDS: INSULIN REGULAR 100 UNIT/ML SUBCUT SCH ×4 (08:26→22:11)
[2021-07-04] MEDS: DORZOLAMIDE/TIMOLOL OPH SOLN 10 ML BOTTLE BOTH EYES SCH ×3 (08:26→22:11)
[2021-07-04] MEDS: HEPARIN 5,000 UNIT/1 ML VIAL SUBCUT SCH ×2 (08:28→22:11)
[2021-07-04] MEDS: COLLAGENASE OINT 30 GM TUBE TOP SCH (09:55)
[2021-07-04] MEDS: SODIUM HYPOCHLORITE 0.25% IRRIG 473 ML BOTTLE TOP SCH (09:55)
[2021-07-04] MEDS: ACETAMINOPHEN 325 MG TABLET PO PRN (12:13)
[2021-07-05 05:00] LABS: Basophils # 0.1 10*3/uL (0.0-0.2); Basophils % 0.4 % (0.0-0.8); Eosinophils # 0.3 10*3/uL (0.0-0.87); Eosinophils % 1.4 % (0.00-10.9); Hematocrit 24.6 VOL% (42.0-52.0); Hemoglobin 7.9 GM/DL (14.0-18.0); Immature Granulocytes % 4.4 %; Immature Granulocytes Absolute 0.86 #; Lymphocytes # 0.9 10*3/uL (1.4-4.0); Lymphocytes % 4.4 % (21.2-54.2); Mean Corpuscular HGB Conc 32.1 GM/DL (32-36); Mean Corpuscular Volume 93.9 FL (87-102); Mean Platelet Volume 9.2 FL (9.6-12.0); Monocytes % 6.9 % (1.7-12.7); NRBC # 0.02 10*3/uL; Neutrophils % 82.5 % (38.7-73.9); Platelet Count 547 T/CUMM (130-400); Red Blood Count 2.62 MC/CUMM (3.8-5.5); Red Cell Distribution Width 18.8 % (9.3-17.3); White Blood Count 19.3 T/CUMM (4-12)
[2021-07-05 05:21] LABS: Eosinophils 4 % (0-10); Lymphocytes 3 % (20-55); Platelet Estimate Adequate; Segmented Neutrophils 86 % (50-85); Total Cells Counted 100
[2021-07-05 05:22] LABS: Hypochromasia 1+; Microcytosis 1+
[2021-07-05 05:36] LABS: Calcium 8.5 MG/DL (8.5-10.1); Osmolality,Calculated 273.7 MOS/KG (273-304); Potassium 4.6 MMOL/L (3.5-5.1)
[2021-07-05 05:37] LABS: Albumin 1.8 G/DL (3.4-5.0); Bilirubin,Direct 4.43 MG/DL (0.0-0.20); Bilirubin,Indirect 0.9 MG/DL (0.0-1.0); Bilirubin,Total 5.3 MG/DL (0.20-1.00)
[2021-07-05] MEDS: ASPIRIN EC 81 MG TABLET PO SCH (08:02)
[2021-07-05] MEDS: DORZOLAMIDE/TIMOLOL OPH SOLN 10 ML BOTTLE BOTH EYES SCH ×3 (08:02→22:12)
[2021-07-05] MEDS: INSULIN REGULAR 100 UNIT/ML SUBCUT SCH ×4 (08:02→22:03)
[2021-07-05] MEDS: PANTOPRAZOLE 40 MG TABLET PO SCH (08:02)
[2021-07-05] MEDS: HEPARIN 5,000 UNIT/1 ML VIAL SUBCUT SCH ×2 (08:02→22:11)
[2021-07-05] MEDS: LEVOFLOXACIN INJ 500 MG/100 ML PREMIX IV SCH (09:39)
[2021-07-05] MEDS: COLLAGENASE OINT 30 GM TUBE TOP SCH (09:39)
[2021-07-05] MEDS: SODIUM HYPOCHLORITE 0.25% IRRIG 473 ML BOTTLE TOP SCH (09:39)
[2021-07-06 05:15] LABS: Basophils # 0.1 10*3/uL (0.0-0.2); Basophils % 0.4 % (0.0-0.8); Eosinophils # 0.2 10*3/uL (0.0-0.87); Eosinophils % 0.8 % (0.00-10.9); Hematocrit 25.6 VOL% (42.0-52.0); Immature Granulocytes Absolute 1.13 #; Lymphocytes % 4.5 % (21.2-54.2); Mean Corpuscular HGB Conc 31.3 GM/DL (32-36); Mean Corpuscular Volume 93.8 FL (87-102); Mean Platelet Volume 9.2 FL (9.6-12.0); Neutrophils % 82.3 % (38.7-73.9); Platelet Count 677 T/CUMM (130-400); Red Blood Count 2.73 MC/CUMM (3.8-5.5); Red Cell Distribution Width 19.2 % (9.3-17.3); White Blood Count 22.4 T/CUMM (4-12)
[2021-07-06 05:22] LABS: Calcium 8.8 MG/DL (8.5-10.1); Osmolality,Calculated 271.5 MOS/KG (273-304); Potassium 5.3 MMOL/L (3.5-5.1)
[2021-07-06 05:26] LABS: Bilirubin,Direct 4.65 MG/DL (0.0-0.20); Bilirubin,Indirect 1.6 MG/DL (0.0-1.0); Bilirubin,Total 6.2 MG/DL (0.20-1.00); Total Protein 7.7 G/DL (6.4-8.2)
[2021-07-06 05:39] LABS: Band Neutrophils 1 % (0-10); Eosinophils 1 % (0-10); Lymphocytes 3 % (20-55); Segmented Neutrophils 87 % (50-85); Total Cells Counted 100
[2021-07-06 05:40] LABS: Hypochromasia 1+; Microcytosis 1+; Platelet Estimate Adequate
[2021-07-06] MEDS: INSULIN REGULAR 100 UNIT/ML SUBCUT SCH (08:26)
[2021-07-06] MEDS: PANTOPRAZOLE 40 MG TABLET PO SCH (09:19)
[2021-07-06] MEDS: HEPARIN 5,000 UNIT/1 ML VIAL SUBCUT SCH (09:19)
[2021-07-06] MEDS: ASPIRIN EC 81 MG TABLET PO SCH (09:19)
[2021-07-06] MEDS: DORZOLAMIDE/TIMOLOL OPH SOLN 10 ML BOTTLE BOTH EYES SCH (09:20)
[2021-07-06] MEDS: COLLAGENASE OINT 30 GM TUBE TOP SCH (09:20)
[2021-07-06] MEDS: SODIUM HYPOCHLORITE 0.25% IRRIG 473 ML BOTTLE TOP SCH (09:20)
[2021-07-06 10:09] VITALS: BP 164/75
== END 2021-07-06 12:45 | disposition home health service (06) | DRG 503 ==
LOC: N.ED 17:03 → N.EDINP 19:04 → SUATTDRO 19:04 → N.5E 20:23
PROVIDERS: ADMIT Hospitalist; ATTEND Internal Medicine

== ENCOUNTER 2021-07-20 07:30 | Inpatient (IN) ==
[2021-07-20] MEDS ORDERED: SODIUM CHLORIDE 0.9% 1,000 ML IV PRN (08:00)
[2021-07-20] MEDS ORDERED: ACETAMINOPHEN 325 MG TABLET PO PRN (18:30)
[2021-07-20 18:54] LABS: Basophils # 0.1 10*3/uL (0.0-0.2); Basophils % 0.5 % (0.0-0.8); Eosinophils # 0.4 10*3/uL (0.0-0.87); Eosinophils % 1.9 % (0.00-10.9); Hemoglobin 9.1 GM/DL (14.0-18.0); Immature Granulocytes % 2.9 %; Immature Granulocytes Absolute 0.56 #; Lymphocytes % 5.2 % (21.2-54.2); Mean Corpuscular HGB Conc 31.4 GM/DL (32-36); Mean Corpuscular Volume 96.3 FL (87-102); Mean Platelet Volume 8.9 FL (9.6-12.0); Monocytes % 6.8 % (1.7-12.7); Neutrophils % 82.7 % (38.7-73.9); Platelet Count 622 T/CUMM (130-400); Red Blood Count 3.01 MC/CUMM (3.8-5.5); Red Cell Distribution Width 18.9 % (9.3-17.3); White Blood Count 19.4 T/CUMM (4-12)
[2021-07-20 19:12] LABS: Albumin 2.3 G/DL (3.4-5.0); Bilirubin,Total 1.4 MG/DL (0.20-1.00); Calcium 8.6 MG/DL (8.5-10.1); Osmolality,Calculated 291.4 MOS/KG (273-304); Potassium 4.7 MMOL/L (3.5-5.1)
[2021-07-20 19:16] LABS: Anisocytosis 2+; Eosinophils 6 % (0-10); Hypochromasia Slight; Lymphocytes 4 % (20-55); Macrocytosis 2+; Microcytosis 2+; Platelet Estimate Increased; Polychromasia 1+; Segmented Neutrophils 84 % (50-85); Total Cells Counted 100
[2021-07-20] MEDS: cilostazoL 100 MG TABLET PO SCH (22:05)
[2021-07-20] MEDS: carvediloL 25 MG TABLET PO SCH (22:05)
[2021-07-20] MEDS: DORZOLAMIDE/TIMOLOL OPH SOLN 10 ML BOTTLE BOTH EYES SCH (22:13)
[2021-07-21] MEDS ORDERED: VANCOMYCIN INJ 1,250 MG in SODIUM CHLORIDE 0.9% 250 ML IV ONE (06:00)
[2021-07-21] MEDS ORDERED: DEXTROSE 50% 25 GM/50 ML VIAL IV ONE (08:51)
[2021-07-21] MEDS ORDERED: SODIUM CHLORIDE 0.9% 250 ML IV SCH (09:30)
[2021-07-21] MEDS ORDERED: GLUCAGON 1 MG VIAL IM PRN (10:24)
[2021-07-21] MEDS ORDERED: DEXTROSE 50% 25 GM/50 ML VIAL IV PRN (10:24)
[2021-07-21] MEDS ORDERED: NALOXONE 0.4 MG/ML VIAL IV PRN (10:28)
[2021-07-21] MEDS ORDERED: ROPIVACAINE 0.5% 30 ML VIAL ONE (10:45)
[2021-07-21] MEDS ORDERED: LIDOCAINE 1% 5 ML VIAL ONE (10:45)
[2021-07-21] MEDS ORDERED: MEPERIDINE 25 MG/1 ML VIAL IV PRN (10:45)
[2021-07-21] MEDS ORDERED: DEXAMETHASONE 4 MG/1 ML VIAL ONE (10:45)
[2021-07-21] MEDS: HYDROmorphone PCA 30 MG/30 ML SYRINGE IV SCH (10:49)
[2021-07-21 11:34] LABS: Hemoglobin 7.2 GM/DL (14.0-18.0)
[2021-07-21] MEDS: DORZOLAMIDE/TIMOLOL OPH SOLN 10 ML BOTTLE BOTH EYES SCH ×3 (12:51→21:32)
[2021-07-21] MEDS: carvediloL 25 MG TABLET PO SCH ×2 (12:51→21:32)
[2021-07-21] MEDS: cilostazoL 100 MG TABLET PO SCH ×2 (12:51→21:32)
[2021-07-21] MEDS: amLODIPine 5 MG TABLET PO SCH (12:51)
[2021-07-21] MEDS: ASPIRIN CHEW 81 MG TABLET PO SCH (12:51)
[2021-07-21] MEDS: KETOROLAC 10 MG TABLET PO SCH ×2 (12:52→18:30)
[2021-07-21] MEDS ORDERED: SODIUM CHLORIDE 0.9% 1,000 ML IV PRN (13:00)
[2021-07-22] MEDS: KETOROLAC 10 MG TABLET PO SCH ×3 (02:38→14:41)
[2021-07-22 06:37] LABS: Basophils % 0.3 % (0.0-0.8); Hematocrit 30.2 VOL% (42.0-52.0); Immature Granulocytes % 2.8 %; Immature Granulocytes Absolute 0.41 #; Lymphocytes # 0.7 10*3/uL (1.4-4.0); Mean Corpuscular HGB Conc 32.1 GM/DL (32-36); Mean Corpuscular Volume 94.1 FL (87-102); Mean Platelet Volume 8.8 FL (9.6-12.0); Monocytes % 5.7 % (1.7-12.7); Neutrophils % 86.2 % (38.7-73.9); Platelet Count 500 T/CUMM (130-400); Red Blood Count 3.21 MC/CUMM (3.8-5.5); Red Cell Distribution Width 18.2 % (9.3-17.3); White Blood Count 14.7 T/CUMM (4-12)
[2021-07-22 06:54] LABS: Hemoglobin 9.7 GM/DL (14.0-18.0)
[2021-07-22 07:06] LABS: Calcium 8.2 MG/DL (8.5-10.1); Osmolality,Calculated 291.2 MOS/KG (273-304); Potassium 4.6 MMOL/L (3.5-5.1)
[2021-07-22 07:25] LABS: Hypochromasia 1+; Lymphocytes 5 % (20-55); Microcytosis 1+; Platelet Estimate Adequate; Segmented Neutrophils 91 % (50-85); Total Cells Counted 100
[2021-07-22] MEDS ORDERED: ONDANSETRON 4 MG/2 ML VIAL IV PRN (08:22)
[2021-07-22] MEDS: amLODIPine 5 MG TABLET PO SCH (09:17)
[2021-07-22] MEDS: cilostazoL 100 MG TABLET PO SCH ×2 (09:18→21:42)
[2021-07-22] MEDS: ASPIRIN CHEW 81 MG TABLET PO SCH (09:18)
[2021-07-22] MEDS: carvediloL 25 MG TABLET PO SCH ×2 (09:18→21:42)
[2021-07-22] MEDS: glipiZIDE 5 MG TABLET PO SCH (09:18)
[2021-07-22] MEDS: DORZOLAMIDE/TIMOLOL OPH SOLN 10 ML BOTTLE BOTH EYES SCH ×3 (09:20→21:42)
[2021-07-22] MEDS ORDERED: VANCOMYCIN INJ 1,000 MG in SODIUM CHLORIDE 0.9% 250 ML IV ONE (12:00)
[2021-07-22] MEDS ORDERED: DEXTROSE 50% 25 GM/50 ML VIAL IV PRN (21:31)
[2021-07-23] MEDS: KETOROLAC 10 MG TABLET PO SCH ×4 (01:00→15:05)
[2021-07-23] MEDS: INSULIN REGULAR 100 UNIT/ML SUBCUT SCH ×4 (08:59→23:07)
[2021-07-23] MEDS: ASPIRIN CHEW 81 MG TABLET PO SCH (09:01)
[2021-07-23] MEDS: glipiZIDE 5 MG TABLET PO SCH (09:01)
[2021-07-23] MEDS: cilostazoL 100 MG TABLET PO SCH ×2 (09:01→23:06)
[2021-07-23] MEDS: DORZOLAMIDE/TIMOLOL OPH SOLN 10 ML BOTTLE BOTH EYES SCH ×3 (09:04→23:07)
[2021-07-23] MEDS ORDERED: HYDROmorphone 2 MG/1 ML VIAL IV PRN (09:04)
[2021-07-23] MEDS: amLODIPine 5 MG TABLET PO SCH (09:07)
[2021-07-23] MEDS: carvediloL 25 MG TABLET PO SCH ×2 (09:07→23:06)
[2021-07-24] MEDS: KETOROLAC 10 MG TABLET PO SCH ×3 (08:11→17:15)
[2021-07-24] MEDS: HYDROmorphone PCA 30 MG/30 ML SYRINGE IV SCH (08:12)
[2021-07-24] MEDS: INSULIN REGULAR 100 UNIT/ML SUBCUT SCH ×4 (08:14→21:22)
[2021-07-24] MEDS: glipiZIDE 5 MG TABLET PO SCH (09:14)
[2021-07-24] MEDS: cilostazoL 100 MG TABLET PO SCH ×2 (09:14→21:22)
[2021-07-24] MEDS: ASPIRIN CHEW 81 MG TABLET PO SCH (09:15)
[2021-07-24] MEDS: carvediloL 25 MG TABLET PO SCH ×2 (09:15→21:22)
[2021-07-24] MEDS: amLODIPine 5 MG TABLET PO SCH (09:15)
[2021-07-24] MEDS: DORZOLAMIDE/TIMOLOL OPH SOLN 10 ML BOTTLE BOTH EYES SCH ×3 (09:18→21:23)
[2021-07-24] MEDS ORDERED: TUBERCULIN SKIN TEST 0.1 ML SYRINGE INTRADERM ONE (09:35)
[2021-07-25] MEDS: KETOROLAC 10 MG TABLET PO SCH ×6 (01:10→21:21)
[2021-07-25] MEDS: INSULIN REGULAR 100 UNIT/ML SUBCUT SCH ×4 (12:48→21:21)
[2021-07-25] MEDS: DORZOLAMIDE/TIMOLOL OPH SOLN 10 ML BOTTLE BOTH EYES SCH ×3 (12:54→21:20)
[2021-07-25] MEDS: cilostazoL 100 MG TABLET PO SCH ×2 (12:55→21:20)
[2021-07-25] MEDS: glipiZIDE 5 MG TABLET PO SCH (12:55)
[2021-07-25] MEDS: amLODIPine 5 MG TABLET PO SCH (12:56)
[2021-07-25] MEDS: carvediloL 25 MG TABLET PO SCH ×2 (12:57→21:19)
[2021-07-25] MEDS: ASPIRIN CHEW 81 MG TABLET PO SCH (12:57)
[2021-07-26] MEDS: KETOROLAC 10 MG TABLET PO SCH ×4 (03:06→21:21)
[2021-07-26] MEDS: carvediloL 25 MG TABLET PO SCH ×2 (10:11→21:21)
[2021-07-26] MEDS: ASPIRIN CHEW 81 MG TABLET PO SCH (10:11)
[2021-07-26] MEDS: cilostazoL 100 MG TABLET PO SCH ×2 (10:11→21:21)
[2021-07-26] MEDS: amLODIPine 5 MG TABLET PO SCH (10:11)
[2021-07-26] MEDS: DORZOLAMIDE/TIMOLOL OPH SOLN 10 ML BOTTLE BOTH EYES SCH ×3 (10:12→21:22)
[2021-07-26] MEDS: glipiZIDE 5 MG TABLET PO SCH (10:12)
[2021-07-26] MEDS: INSULIN REGULAR 100 UNIT/ML SUBCUT SCH ×4 (10:28→21:19)
[2021-07-27] MEDS: KETOROLAC 10 MG TABLET PO SCH ×3 (03:07→14:41)
[2021-07-27 05:52] LABS: Basophils # 0.1 10*3/uL (0.0-0.2); Basophils % 0.6 % (0.0-0.8); Eosinophils # 0.4 10*3/uL (0.0-0.87); Eosinophils % 3.8 % (0.00-10.9); Hematocrit 31.1 VOL% (42.0-52.0); Hemoglobin 9.8 GM/DL (14.0-18.0); Immature Granulocytes % 0.8 %; Immature Granulocytes Absolute 0.09 #; Lymphocytes # 1.1 10*3/uL (1.4-4.0); Lymphocytes % 9.8 % (21.2-54.2); Mean Corpuscular HGB Conc 31.5 GM/DL (32-36); Mean Corpuscular Volume 95.4 FL (87-102); Mean Platelet Volume 9.2 FL (9.6-12.0); Monocytes % 9.2 % (1.7-12.7); Neutrophils % 75.8 % (38.7-73.9); Platelet Count 446 T/CUMM (130-400); Red Blood Count 3.26 MC/CUMM (3.8-5.5); Red Cell Distribution Width 16.1 % (9.3-17.3); White Blood Count 11.1 T/CUMM (4-12)
[2021-07-27 06:57] LABS: Albumin 2.7 G/DL (3.4-5.0); Calcium 8.4 MG/DL (8.5-10.1); Osmolality,Calculated 289.1 MOS/KG (273-304); Total Protein 7.9 G/DL (6.4-8.2)
[2021-07-27] MEDS: ASPIRIN CHEW 81 MG TABLET PO SCH (08:54)
[2021-07-27] MEDS: cilostazoL 100 MG TABLET PO SCH (08:55)
[2021-07-27] MEDS: carvediloL 25 MG TABLET PO SCH (08:55)
[2021-07-27] MEDS: glipiZIDE 5 MG TABLET PO SCH (08:57)
[2021-07-27] MEDS: DORZOLAMIDE/TIMOLOL OPH SOLN 10 ML BOTTLE BOTH EYES SCH ×2 (08:58→16:34)
[2021-07-27] MEDS: INSULIN REGULAR 100 UNIT/ML SUBCUT SCH ×3 (09:04→17:55)
[2021-07-27] MEDS: amLODIPine 5 MG TABLET PO SCH (09:05)
[2021-07-27 12:12] VITALS: BP 151/77
== END 2021-07-27 17:50 | disposition home health service (06) | DRG 474 ==
LOC: N.2EOUT 07:30 → N.2E 13:07 → N.3E 16:24
PROVIDERS: ADMIT Surgery; ATTEND Surgery

== ENCOUNTER 2021-08-12 12:19 | Inpatient (IN) ==
[2021-08-12 13:30] LABS: Basophils % 0.4 % (0.0-0.8); Eosinophils # 0.7 10*3/uL (0.0-0.87); Eosinophils % 6.5 % (0.00-10.9); Hematocrit 23.3 VOL% (42.0-52.0); Hemoglobin 7.1 GM/DL (14.0-18.0); Immature Granulocytes % 1.1 %; Immature Granulocytes Absolute 0.12 #; Lymphocytes # 1.2 10*3/uL (1.4-4.0); Lymphocytes % 11.7 % (21.2-54.2); Mean Corpuscular HGB Conc 30.5 GM/DL (32-36); Mean Corpuscular Volume 99.1 FL (87-102); Mean Platelet Volume 8.6 FL (9.6-12.0); Neutrophils % 72.3 % (38.7-73.9); Platelet Count 226 T/CUMM (130-400); Red Blood Count 2.35 MC/CUMM (3.8-5.5); Red Cell Distribution Width 17.6 % (9.3-17.3); White Blood Count 10.6 T/CUMM (4-12)
[2021-08-12 13:49] LABS: Albumin 2.7 G/DL (3.4-5.0); Bilirubin,Total 0.6 MG/DL (0.20-1.00); Calcium 8.5 MG/DL (8.5-10.1); Osmolality,Calculated 293.5 MOS/KG (273-304); Potassium 4.8 MMOL/L (3.5-5.1); Total Protein 6.7 G/DL (6.4-8.2)
[2021-08-12 13:52] LABS: INR 0.9; PT Patient Result 10.5 SECS (10.5-12.0)
[2021-08-12] MEDS ORDERED: HYDROmorphone 2 MG/1 ML VIAL IV STA (14:18)
[2021-08-12] MEDS ORDERED: ONDANSETRON 4 MG/2 ML VIAL IV STA (14:24)
[2021-08-12] MEDS ORDERED: MIDAZOLAM 2 MG/2 ML VIAL ONE (15:50)
[2021-08-12] MEDS ORDERED: fentaNYL 100 MCG/2 ML VIAL ONE (15:50)
[2021-08-12] MEDS ORDERED: ACETAMINOPHEN 325 MG TABLET PO PRN (15:55)
[2021-08-12] MEDS ORDERED: ONDANSETRON 4 MG/2 ML VIAL IV PRN (15:55)
[2021-08-12] MEDS ORDERED: ePHEDrine 50 MG/ML VIAL ONE (16:07)
[2021-08-13] MEDS ORDERED: FUROSEMIDE 40 MG/4 ML VIAL IV ONE (05:51)
[2021-08-13] MEDS ORDERED: ALBUTEROL/IPRATROPIUM 3 ML NEB RESP TX PRN (05:51)
[2021-08-13 08:20] LABS: Basophils # 0.1 10*3/uL (0.0-0.2); Basophils % 0.4 % (0.0-0.8); Eosinophils # 0.6 10*3/uL (0.0-0.87); Eosinophils % 4.1 % (0.00-10.9); Hematocrit 24.5 VOL% (42.0-52.0); Hemoglobin 7.4 GM/DL (14.0-18.0); Immature Granulocytes % 0.7 %; Immature Granulocytes Absolute 0.11 #; Lymphocytes % 6.5 % (21.2-54.2); Mean Corpuscular HGB Conc 30.2 GM/DL (32-36); Mean Corpuscular Volume 101.2 FL (87-102); Monocytes % 5.3 % (1.7-12.7); Platelet Count 237 T/CUMM (130-400); Red Blood Count 2.42 MC/CUMM (3.8-5.5); Red Cell Distribution Width 17.3 % (9.3-17.3); White Blood Count 15.8 T/CUMM (4-12)
[2021-08-13 08:47] LABS: Calcium 8.3 MG/DL (8.5-10.1); Potassium 5.1 MMOL/L (3.5-5.1)
[2021-08-13] MEDS: PANTOPRAZOLE 40 MG TABLET PO SCH (08:50)
[2021-08-13] MEDS ORDERED: SODIUM CHLORIDE 0.9% 1,000 ML IV PRN (09:42)
[2021-08-13] MEDS: DORZOLAMIDE/TIMOLOL OPH SOLN 10 ML BOTTLE BOTH EYES SCH ×2 (15:31→21:15)
[2021-08-13] MEDS: carvediloL 25 MG TABLET PO SCH (18:12)
[2021-08-13] MEDS: cilostazoL 100 MG TABLET PO SCH (21:15)
[2021-08-14 05:15] LABS: Basophils % 0.2 % (0.0-0.8); Eosinophils # 0.7 10*3/uL (0.0-0.87); Eosinophils % 5.4 % (0.00-10.9); Hematocrit 22.6 VOL% (42.0-52.0); Hemoglobin 6.9 GM/DL (14.0-18.0); Immature Granulocytes % 0.6 %; Immature Granulocytes Absolute 0.07 #; Lymphocytes # 1.3 10*3/uL (1.4-4.0); Lymphocytes % 10.5 % (21.2-54.2); Mean Corpuscular HGB Conc 30.5 GM/DL (32-36); Mean Corpuscular Volume 100.9 FL (87-102); Mean Platelet Volume 8.8 FL (9.6-12.0); Monocytes % 8.6 % (1.7-12.7); Neutrophils % 74.7 % (38.7-73.9); Platelet Count 226 T/CUMM (130-400); Red Blood Count 2.24 MC/CUMM (3.8-5.5); Red Cell Distribution Width 17.2 % (9.3-17.3); White Blood Count 12.2 T/CUMM (4-12)
[2021-08-14 05:40] LABS: Calcium 7.9 MG/DL (8.5-10.1); Osmolality,Calculated 297.5 MOS/KG (273-304)
[2021-08-14] MEDS ORDERED: SODIUM POLYSTYRENE SULFATE 15 GM/60 ML BOTTLE PO ONE (06:17)
[2021-08-14] MEDS: amLODIPine 5 MG TABLET PO SCH (08:49)
[2021-08-14] MEDS: DORZOLAMIDE/TIMOLOL OPH SOLN 10 ML BOTTLE BOTH EYES SCH ×3 (08:49→21:22)
[2021-08-14] MEDS: cilostazoL 100 MG TABLET PO SCH ×2 (08:49→21:22)
[2021-08-14] MEDS: carvediloL 25 MG TABLET PO SCH ×2 (08:49→17:00)
[2021-08-14] MEDS: PANTOPRAZOLE 40 MG TABLET PO SCH (08:49)
[2021-08-14] MEDS ORDERED: SODIUM CHLORIDE 0.9% 1,000 ML IV PRN (08:54)
[2021-08-14] MEDS ORDERED: SODIUM BICARBONATE 50 MEQ/50 ML SYRINGE IV ONE (13:11)
[2021-08-14] MEDS ORDERED: EPINEPHrine 1 MG/10 ML SYRINGE ONE (13:11)
[2021-08-14] MEDS ORDERED: CALCIUM CHLORIDE 1,000 MG/10 ML SYRINGE IV ONE (13:11)
[2021-08-14] MEDS ORDERED: ETOMIDATE 20 MG/10 ML VIAL IV ONE (13:35)
[2021-08-14 14:52] LABS: ABG Base Excess 1.4 MMOL/L (-2.5-2.5); ABG HCO3 25.7 MMOL/L (20-26); ABG PCO2 43.9 MM HG (35-48); ABG PH 7.389 (7.35-7.45); ABG TCO2 24.8 MMOL/L (23-27)
[2021-08-14 15:50] LABS: Basophils % 0.1 % (0.0-0.8); Eosinophils # 0.4 10*3/uL (0.0-0.87); Eosinophils % 1.9 % (0.00-10.9); Hematocrit 21.9 VOL% (42.0-52.0); Hemoglobin 7.2 GM/DL (14.0-18.0); Immature Granulocytes % 1.8 %; Immature Granulocytes Absolute 0.33 #; Lymphocytes # 0.6 10*3/uL (1.4-4.0); Lymphocytes % 3.2 % (21.2-54.2); Mean Corpuscular HGB Conc 32.9 GM/DL (32-36); Mean Corpuscular Volume 102.3 FL (87-102); Mean Platelet Volume 9.4 FL (9.6-12.0); Monocytes % 3.9 % (1.7-12.7); Neutrophils % 89.1 % (38.7-73.9); Platelet Count 117 T/CUMM (130-400); Red Blood Count 2.14 MC/CUMM (3.8-5.5); Red Cell Distribution Width 16.5 % (9.3-17.3); White Blood Count 18.8 T/CUMM (4-12)
[2021-08-14 15:59] LABS: Albumin 2.1 G/DL (3.4-5.0)
[2021-08-14 16:23] LABS: INR 1.1; PT Patient Result 11.9 SECS (10.5-12.0); Partial Thromboplastin Time 27.7 SECS (23.8-32.1)
[2021-08-14 16:26] LABS: Lymphocytes 4 % (20-55); Segmented Neutrophils 93 % (50-85); Total Cells Counted 100
[2021-08-14 16:27] LABS: Platelet Estimate Normal; Polychromasia Slight
[2021-08-14 16:46] LABS: Total Protein 5.7 G/DL (6.4-8.2)
[2021-08-14 16:57] LABS: Alkaline Phosphatase 264 U/L (45-117); Calcium 7.8 MG/DL (8.5-10.1)
[2021-08-14 16:58] LABS: Bilirubin,Total 1.31 MG/DL (0.20-1.00); Blood Urea Nitrogen 48 MG/DL (7-18); Estimated Glom Filtration Rate 11 ML/MIN; Glucose 91 MG/DL (74-106); Osmolality,Calculated 267.2 MOS/KG (273-304); Sodium 127 MMOL/L (136-145)
[2021-08-14 16:59] LABS: Carbon Dioxide 14 MMOL/L (21-32); Potassium 5.8 MMOL/L (3.5-5.1)
[2021-08-14 17:05] LABS: Alanine Aminotransferase 77 U/L (16-61); Aspartate Amino Transferase 89 U/L (0-37)
[2021-08-14] MEDS ORDERED: SODIUM CHLORIDE 0.9% 250 ML IV PRN (19:01)
[2021-08-14] MEDS ORDERED: diphenhydrAMINE 50 MG/1 ML VIAL IV ONE (19:12)
[2021-08-14] MEDS ORDERED: methylPREDNISolone SOD SUC 125 MG/2 ML VIAL IV ONE (19:13)
[2021-08-14] MEDS ORDERED: FAMOTIDINE 20 MG/2 ML VIAL IV ONE (19:13)
[2021-08-14] MEDS ORDERED: DEXTROSE 50% 25 GM/50 ML SYRINGE IV PRN (23:13)
[2021-08-14] MEDS ORDERED: DEXTROSE 50% 25 GM/50 ML SYRINGE IV ONE (23:14)
[2021-08-15 03:31] LABS: Basophils % 0.3 % (0.0-0.8); Eosinophils % 0.1 % (0.00-10.9); Hematocrit 25.7 VOL% (42.0-52.0); Immature Granulocytes % 0.4 %; Immature Granulocytes Absolute 0.05 #; Lymphocytes # 0.4 10*3/uL (1.4-4.0); Lymphocytes % 3.3 % (21.2-54.2); Mean Corpuscular HGB Conc 31.5 GM/DL (32-36); Mean Corpuscular Volume 94.8 FL (87-102); Mean Platelet Volume 9.2 FL (9.6-12.0); Monocytes % 1.3 % (1.7-12.7); Neutrophils % 94.6 % (38.7-73.9); Red Cell Distribution Width 17.8 % (9.3-17.3)
[2021-08-15 03:36] LABS: Calcium 7.6 MG/DL (8.5-10.1); Hemoglobin 8.1 GM/DL (14.0-18.0); Osmolality,Calculated 293.8 MOS/KG (273-304); Platelet Count 162 T/CUMM (130-400); Red Blood Count 2.71 MC/CUMM (3.8-5.5); White Blood Count 11.9 T/CUMM (4-12)
[2021-08-15] MEDS ORDERED: SODIUM POLYSTYRENE SULFATE 15 GM/60 ML BOTTLE PO PRN (03:58)
[2021-08-15 04:25] LABS: Anisocytosis 1+; Hypochromasia 1+; Lymphocytes 2 % (20-55); Microcytosis 1+; Platelet Estimate Adequate; Segmented Neutrophils 97 % (50-85); Total Cells Counted 100
[2021-08-15 05:01] LABS: ABG Base Excess 1.2 MMOL/L (-2.5-2.5); ABG Oxygen Saturation 98.9 % (95-100); ABG PCO2 36.4 MM HG (35-48); ABG PH 7.455 (7.35-7.45); ABG PO2 216.4 MM HG (80-95); ABG TCO2 26.1 MMOL/L (23-27)
[2021-08-15] MEDS: OMEPRAZOLE ODT 20 MG TABLET PO SCH (08:50)
[2021-08-15] MEDS: DORZOLAMIDE/TIMOLOL OPH SOLN 10 ML BOTTLE BOTH EYES SCH ×3 (08:50→20:55)
[2021-08-15] MEDS: cilostazoL 100 MG TABLET PO SCH ×2 (08:50→20:55)
[2021-08-15] MEDS: carvediloL 25 MG TABLET PO SCH ×2 (08:50→17:30)
[2021-08-15] MEDS: amLODIPine 5 MG TABLET PO SCH (08:50)
[2021-08-15] MEDS: cefTRIAXone 1,000 MG in SODIUM CHLORIDE 0.9% 100 ML IV SCH (12:50)
[2021-08-16 04:30] LABS: ABG Base Excess 4.6 MMOL/L (-2.5-2.5); ABG HCO3 28.6 MMOL/L (20-26); ABG Oxygen Saturation 99.9 % (95-100); ABG PCO2 36.8 MM HG (35-48); ABG PH 7.491 (7.35-7.45); ABG TCO2 26.4 MMOL/L (23-27)
[2021-08-16 04:58] LABS: Basophils % 0.3 % (0.0-0.8); Eosinophils # 0.1 10*3/uL (0.0-0.87); Eosinophils % 0.6 % (0.00-10.9); Hematocrit 21.7 VOL% (42.0-52.0); Hemoglobin 7.2 GM/DL (14.0-18.0); Immature Granulocytes % 0.4 %; Immature Granulocytes Absolute 0.04 #; Lymphocytes # 0.9 10*3/uL (1.4-4.0); Lymphocytes % 8.6 % (21.2-54.2); Mean Corpuscular HGB Conc 33.2 GM/DL (32-36); Mean Corpuscular Volume 93.9 FL (87-102); Mean Platelet Volume 9.8 FL (9.6-12.0); Monocytes % 10.5 % (1.7-12.7); Neutrophils % 79.6 % (38.7-73.9); Platelet Count 198 T/CUMM (130-400); Red Blood Count 2.31 MC/CUMM (3.8-5.5); Red Cell Distribution Width 16.9 % (9.3-17.3); White Blood Count 10.9 T/CUMM (4-12)
[2021-08-16 05:17] LABS: Osmolality,Calculated 283.7 MOS/KG (273-304); Potassium 3.7 MMOL/L (3.5-5.1)
[2021-08-16] MEDS: amLODIPine 5 MG TABLET PO SCH (09:08)
[2021-08-16] MEDS: OMEPRAZOLE ODT 20 MG TABLET PO SCH (09:09)
[2021-08-16] MEDS: carvediloL 25 MG TABLET PO SCH ×2 (09:09→16:09)
[2021-08-16] MEDS: cilostazoL 100 MG TABLET PO SCH ×2 (09:09→22:08)
[2021-08-16] MEDS: DORZOLAMIDE/TIMOLOL OPH SOLN 10 ML BOTTLE BOTH EYES SCH ×3 (09:09→20:30)
[2021-08-16] MEDS: cefTRIAXone 1,000 MG in SODIUM CHLORIDE 0.9% 100 ML IV SCH (13:21)
[2021-08-17 05:04] LABS: ABG Base Excess 1.9 MMOL/L (-2.5-2.5); ABG HCO3 26.2 MMOL/L (20-26); ABG Oxygen Saturation 98.8 % (95-100); ABG PCO2 43.4 MM HG (35-48); ABG PH 7.401 (7.35-7.45); ABG TCO2 25.1 MMOL/L (23-27)
[2021-08-17 06:19] LABS: Basophils # 0.1 10*3/uL (0.0-0.2); Basophils % 0.5 % (0.0-0.8); Eosinophils # 0.4 10*3/uL (0.0-0.87); Eosinophils % 2.9 % (0.00-10.9); Hematocrit 24.3 VOL% (42.0-52.0); Hemoglobin 7.7 GM/DL (14.0-18.0); Immature Granulocytes % 0.6 %; Immature Granulocytes Absolute 0.07 #; Lymphocytes # 0.8 10*3/uL (1.4-4.0); Lymphocytes % 6.9 % (21.2-54.2); Mean Corpuscular HGB Conc 31.7 GM/DL (32-36); Mean Corpuscular Volume 93.1 FL (87-102); Mean Platelet Volume 9.1 FL (9.6-12.0); Monocytes % 9.3 % (1.7-12.7); Neutrophils % 79.8 % (38.7-73.9); Platelet Count 286 T/CUMM (130-400); Red Blood Count 2.61 MC/CUMM (3.8-5.5); Red Cell Distribution Width 15.8 % (9.3-17.3); White Blood Count 12.1 T/CUMM (4-12)
[2021-08-17 06:58] LABS: Calcium 7.9 MG/DL (8.5-10.1); Potassium 3.7 MMOL/L (3.5-5.1)
[2021-08-17] MEDS: cilostazoL 100 MG TABLET PO SCH ×2 (08:58→20:36)
[2021-08-17] MEDS: amLODIPine 5 MG TABLET PO SCH (08:58)
[2021-08-17] MEDS: carvediloL 25 MG TABLET PO SCH ×2 (08:59→18:16)
[2021-08-17] MEDS: OMEPRAZOLE ODT 20 MG TABLET PO SCH (08:59)
[2021-08-17] MEDS: DORZOLAMIDE/TIMOLOL OPH SOLN 10 ML BOTTLE BOTH EYES SCH ×3 (08:59→20:36)
[2021-08-17] MEDS: cefTRIAXone 1,000 MG in SODIUM CHLORIDE 0.9% 100 ML IV SCH (12:30)
[2021-08-17] MEDS ORDERED: NON-FORMULARY MEDICATION (Ferric Citrate [Auryxia] 210 mg iron tablet) PO SCH (17:00)
[2021-08-17] MEDS: INSULIN REGULAR 100 UNIT/ML SUBCUT SCH (20:53)
[2021-08-18 04:06] LABS: Basophils % 0.5 % (0.0-0.8); Eosinophils # 0.5 10*3/uL (0.0-0.87); Eosinophils % 4.8 % (0.00-10.9); Hematocrit 25.8 VOL% (42.0-52.0); Hemoglobin 8.6 GM/DL (14.0-18.0); Immature Granulocytes % 0.4 %; Lymphocytes # 0.7 10*3/uL (1.4-4.0); Lymphocytes % 7.6 % (21.2-54.2); Mean Corpuscular HGB Conc 33.3 GM/DL (32-36); Mean Corpuscular Volume 91.5 FL (87-102); Mean Platelet Volume 8.5 FL (9.6-12.0); Monocytes % 10.7 % (1.7-12.7); Platelet Count 313 T/CUMM (130-400); Red Blood Count 2.82 MC/CUMM (3.8-5.5); Red Cell Distribution Width 15.6 % (9.3-17.3); White Blood Count 9.5 T/CUMM (4-12)
[2021-08-18 04:07] LABS: Basophils # 0.1 10*3/uL (0.0-0.2); Immature Granulocytes Absolute 0.04 #
[2021-08-18 04:23] LABS: Allen Test Positive; Pt O2 Delivery Device Room Air
[2021-08-18 04:24] LABS: Calcium 7.5 MG/DL (8.5-10.1); Osmolality,Calculated 286.1 MOS/KG (273-304)
[2021-08-18 04:24] LABS: ABG HCO3 25.3 MMOL/L (20-26); ABG PCO2 41.6 MM HG (35-48); ABG PH 7.401 (7.35-7.45); ABG PO2 72.8 MM HG (80-95)
[2021-08-18] MEDS: INSULIN REGULAR 100 UNIT/ML SUBCUT SCH ×4 (09:19→21:15)
[2021-08-18] MEDS: ASPIRIN EC 81 MG TABLET PO SCH (13:46)
[2021-08-18] MEDS: amLODIPine 5 MG TABLET PO SCH (13:46)
[2021-08-18] MEDS: DORZOLAMIDE/TIMOLOL OPH SOLN 10 ML BOTTLE BOTH EYES SCH ×3 (13:46→21:15)
[2021-08-18] MEDS: carvediloL 25 MG TABLET PO SCH ×2 (13:46→17:13)
[2021-08-18] MEDS: cilostazoL 100 MG TABLET PO SCH ×2 (13:47→21:15)
[2021-08-18] MEDS: OMEPRAZOLE ODT 20 MG TABLET PO SCH (13:47)
[2021-08-18] MEDS: cefTRIAXone 1,000 MG in SODIUM CHLORIDE 0.9% 100 ML IV SCH (13:48)
[2021-08-18] MEDS ORDERED: LORazepam 2 MG/1 ML VIAL IV ONE (17:00)
[2021-08-19] MEDS: LORazepam 2 MG/1 ML VIAL IV PRN (00:25)
[2021-08-19 06:06] LABS: Calcium 7.6 MG/DL (8.5-10.1); Osmolality,Calculated 288.3 MOS/KG (273-304); Potassium 3.8 MMOL/L (3.5-5.1)
[2021-08-19 07:50] LABS: Basophils # 0.1 10*3/uL (0.0-0.2); Basophils % 0.6 % (0.0-0.8); Eosinophils # 0.4 10*3/uL (0.0-0.87); Eosinophils % 4.4 % (0.00-10.9); Hemoglobin 7.9 GM/DL (14.0-18.0); Immature Granulocytes % 0.3 %; Immature Granulocytes Absolute 0.03 #; Lymphocytes # 0.9 10*3/uL (1.4-4.0); Lymphocytes % 10.4 % (21.2-54.2); Mean Corpuscular HGB Conc 32.9 GM/DL (32-36); Mean Corpuscular Volume 91.6 FL (87-102); Monocytes % 11.7 % (1.7-12.7); Neutrophils % 72.6 % (38.7-73.9); Platelet Count 347 T/CUMM (130-400); Red Blood Count 2.62 MC/CUMM (3.8-5.5); Red Cell Distribution Width 15.6 % (9.3-17.3); White Blood Count 8.9 T/CUMM (4-12)
[2021-08-19] MEDS: carvediloL 25 MG TABLET PO SCH ×4 (08:00→20:51)
[2021-08-19] MEDS: INSULIN REGULAR 100 UNIT/ML SUBCUT SCH ×4 (08:13→20:52)
[2021-08-19] MEDS: DORZOLAMIDE/TIMOLOL OPH SOLN 10 ML BOTTLE BOTH EYES SCH ×3 (09:35→20:51)
[2021-08-19] MEDS: ASPIRIN EC 81 MG TABLET PO SCH (11:58)
[2021-08-19] MEDS: cilostazoL 100 MG TABLET PO SCH ×2 (11:58→20:50)
[2021-08-19] MEDS: amLODIPine 5 MG TABLET PO SCH (11:58)
[2021-08-19] MEDS: OMEPRAZOLE ODT 20 MG TABLET PO SCH (11:59)
[2021-08-19] MEDS: cefTRIAXone 1,000 MG in SODIUM CHLORIDE 0.9% 100 ML IV SCH (12:25)
[2021-08-20] MEDS: INSULIN REGULAR 100 UNIT/ML SUBCUT SCH ×4 (07:30→21:22)
[2021-08-20] MEDS: OMEPRAZOLE ODT 20 MG TABLET PO SCH (09:00)
[2021-08-20] MEDS: amLODIPine 5 MG TABLET PO SCH (09:00)
[2021-08-20] MEDS: ASPIRIN EC 81 MG TABLET PO SCH (09:00)
[2021-08-20] MEDS: cilostazoL 100 MG TABLET PO SCH ×2 (09:00→21:21)
[2021-08-20] MEDS: DORZOLAMIDE/TIMOLOL OPH SOLN 10 ML BOTTLE BOTH EYES SCH ×3 (09:00→21:22)
[2021-08-20] MEDS: carvediloL 25 MG TABLET PO SCH ×2 (09:00→17:15)
[2021-08-20] MEDS: cefTRIAXone 1,000 MG in SODIUM CHLORIDE 0.9% 100 ML IV SCH (14:35)
[2021-08-21 05:58] LABS: Basophils % 0.2 % (0.0-0.8); Eosinophils # 0.3 10*3/uL (0.0-0.87); Eosinophils % 1.6 % (0.00-10.9); Hematocrit 25.2 VOL% (42.0-52.0); Hemoglobin 8.1 GM/DL (14.0-18.0); Immature Granulocytes % 0.4 %; Immature Granulocytes Absolute 0.06 #; Lymphocytes # 0.7 10*3/uL (1.4-4.0); Lymphocytes % 4.4 % (21.2-54.2); Mean Corpuscular HGB Conc 32.1 GM/DL (32-36); Mean Corpuscular Volume 92.6 FL (87-102); Mean Platelet Volume 8.3 FL (9.6-12.0); Neutrophils % 84.4 % (38.7-73.9); Platelet Count 366 T/CUMM (130-400); Red Blood Count 2.72 MC/CUMM (3.8-5.5); Red Cell Distribution Width 15.3 % (9.3-17.3); White Blood Count 16.7 T/CUMM (4-12)
[2021-08-21 06:14] LABS: Calcium 7.7 MG/DL (8.5-10.1); Osmolality,Calculated 286.3 MOS/KG (273-304); Potassium 3.9 MMOL/L (3.5-5.1)
[2021-08-21 06:26] LABS: Anisocytosis 2+; Band Neutrophils 3 % (0-10); Eosinophils 2 % (0-10); Lymphocytes 3 % (20-55); Macrocytosis 1+; Platelet Estimate Normal; Segmented Neutrophils 87 % (50-85); Total Cells Counted 100
[2021-08-21] MEDS: INSULIN REGULAR 100 UNIT/ML SUBCUT SCH ×4 (07:24→20:35)
[2021-08-21] MEDS: carvediloL 25 MG TABLET PO SCH ×2 (09:18→17:31)
[2021-08-21] MEDS: OMEPRAZOLE ODT 20 MG TABLET PO SCH (09:19)
[2021-08-21] MEDS: amLODIPine 5 MG TABLET PO SCH (09:19)
[2021-08-21] MEDS: cilostazoL 100 MG TABLET PO SCH ×2 (09:19→20:30)
[2021-08-21] MEDS: ASPIRIN EC 81 MG TABLET PO SCH (09:19)
[2021-08-21] MEDS: DORZOLAMIDE/TIMOLOL OPH SOLN 10 ML BOTTLE BOTH EYES SCH ×3 (10:10→20:35)
[2021-08-22] MEDS: LORazepam 2 MG/1 ML VIAL IV PRN (04:10)
[2021-08-22] MEDS: ASPIRIN EC 81 MG TABLET PO SCH (09:56)
[2021-08-22] MEDS: cilostazoL 100 MG TABLET PO SCH ×2 (09:56→21:47)
[2021-08-22] MEDS: INSULIN REGULAR 100 UNIT/ML SUBCUT SCH ×4 (09:56→21:47)
[2021-08-22] MEDS: DORZOLAMIDE/TIMOLOL OPH SOLN 10 ML BOTTLE BOTH EYES SCH ×3 (09:57→21:48)
[2021-08-22] MEDS: amLODIPine 5 MG TABLET PO SCH (09:57)
[2021-08-22] MEDS: carvediloL 25 MG TABLET PO SCH ×2 (09:57→18:16)
[2021-08-22] MEDS: OMEPRAZOLE ODT 20 MG TABLET PO SCH (09:57)
[2021-08-22 11:22] LABS: Basophils % 0.2 % (0.0-0.8); Eosinophils # 0.3 10*3/uL (0.0-0.87); Eosinophils % 1.2 % (0.00-10.9); Hematocrit 24.1 VOL% (42.0-52.0); Hemoglobin 7.8 GM/DL (14.0-18.0); Immature Granulocytes % 0.8 %; Immature Granulocytes Absolute 0.17 #; Lymphocytes # 1.1 10*3/uL (1.4-4.0); Lymphocytes % 4.8 % (21.2-54.2); Mean Corpuscular HGB Conc 32.4 GM/DL (32-36); Mean Corpuscular Volume 92.3 FL (87-102); Mean Platelet Volume 8.6 FL (9.6-12.0); Monocytes % 6.1 % (1.7-12.7); Neutrophils % 86.9 % (38.7-73.9); Platelet Count 370 T/CUMM (130-400); Red Blood Count 2.61 MC/CUMM (3.8-5.5); Red Cell Distribution Width 15.7 % (9.3-17.3)
[2021-08-22 11:47] LABS: Calcium 7.8 MG/DL (8.5-10.1); Osmolality,Calculated 286.7 MOS/KG (273-304); Potassium 3.7 MMOL/L (3.5-5.1)
[2021-08-22 12:23] LABS: Lymphocytes 5 % (20-55); Metamyelocytes 1 %; Platelet Estimate Normal; Segmented Neutrophils 89 % (50-85); Stomatocytes Few; Total Cells Counted 100
[2021-08-22 12:24] LABS: Microcytosis Slight; Ovalocytes Few
[2021-08-22] MEDS: HALOPERIDOL 5 MG/ML AMP IM PRN ×2 (15:15→21:48)
[2021-08-22] MEDS: QUEtiapine 25 MG TABLET PO SCH (21:47)
[2021-08-23] MEDS: cilostazoL 100 MG TABLET PO SCH ×2 (09:50→21:00)
[2021-08-23] MEDS: DORZOLAMIDE/TIMOLOL OPH SOLN 10 ML BOTTLE BOTH EYES SCH ×3 (09:50→21:00)
[2021-08-23] MEDS: carvediloL 25 MG TABLET PO SCH ×2 (09:50→16:40)
[2021-08-23] MEDS: ASPIRIN EC 81 MG TABLET PO SCH (09:50)
[2021-08-23] MEDS: OMEPRAZOLE ODT 20 MG TABLET PO SCH (09:50)
[2021-08-23] MEDS: amLODIPine 5 MG TABLET PO SCH (09:50)
[2021-08-23] MEDS: INSULIN REGULAR 100 UNIT/ML SUBCUT SCH ×4 (09:50→21:01)
[2021-08-23 13:18] LABS: Basophils # 0.1 10*3/uL (0.0-0.2); Basophils % 0.3 % (0.0-0.8); Eosinophils # 0.5 10*3/uL (0.0-0.87); Eosinophils % 3.7 % (0.00-10.9); Hematocrit 26.6 VOL% (42.0-52.0); Hemoglobin 8.7 GM/DL (14.0-18.0); Immature Granulocytes % 0.4 %; Immature Granulocytes Absolute 0.06 #; Lymphocytes # 1.2 10*3/uL (1.4-4.0); Lymphocytes % 8.3 % (21.2-54.2); Mean Corpuscular HGB Conc 32.7 GM/DL (32-36); Mean Corpuscular Volume 92.7 FL (87-102); Mean Platelet Volume 8.8 FL (9.6-12.0); Monocytes % 7.5 % (1.7-12.7); Neutrophils % 79.8 % (38.7-73.9); Platelet Count 377 T/CUMM (130-400); Red Blood Count 2.87 MC/CUMM (3.8-5.5); Red Cell Distribution Width 15.8 % (9.3-17.3); White Blood Count 14.5 T/CUMM (4-12)
[2021-08-23] MEDS: HALOPERIDOL 5 MG/ML AMP IM PRN ×2 (13:45→21:01)
[2021-08-23] MEDS: QUEtiapine 25 MG TABLET PO SCH (21:01)
[2021-08-24 05:12] LABS: Basophils % 0.4 % (0.0-0.8); Eosinophils # 0.4 10*3/uL (0.0-0.87); Eosinophils % 3.6 % (0.00-10.9); Hematocrit 24.5 VOL% (42.0-52.0); Hemoglobin 7.6 GM/DL (14.0-18.0); Immature Granulocytes % 0.5 %; Immature Granulocytes Absolute 0.05 #; Lymphocytes # 1.1 10*3/uL (1.4-4.0); Lymphocytes % 10.5 % (21.2-54.2); Mean Corpuscular Volume 95.3 FL (87-102); Mean Platelet Volume 8.9 FL (9.6-12.0); Platelet Count 359 T/CUMM (130-400); Red Blood Count 2.57 MC/CUMM (3.8-5.5); Red Cell Distribution Width 15.8 % (9.3-17.3); White Blood Count 10.7 T/CUMM (4-12)
[2021-08-24] MEDS: INSULIN REGULAR 100 UNIT/ML SUBCUT SCH ×3 (09:03→15:55)
[2021-08-24] MEDS: carvediloL 25 MG TABLET PO SCH ×2 (09:04→16:42)
[2021-08-24] MEDS: amLODIPine 5 MG TABLET PO SCH (09:04)
[2021-08-24] MEDS: cilostazoL 100 MG TABLET PO SCH ×2 (09:04→21:40)
[2021-08-24] MEDS: OMEPRAZOLE ODT 20 MG TABLET PO SCH (09:05)
[2021-08-24] MEDS: ASPIRIN EC 81 MG TABLET PO SCH (09:05)
[2021-08-24] MEDS: DORZOLAMIDE/TIMOLOL OPH SOLN 10 ML BOTTLE BOTH EYES SCH ×3 (09:06→21:41)
[2021-08-24] MEDS ORDERED: ATORVASTATIN 40 MG TABLET PO SCH (21:00)
[2021-08-24] MEDS: APIXABAN 2.5 MG TABLET PO SCH (21:40)
[2021-08-24] MEDS: QUEtiapine 25 MG TABLET PO SCH (21:41)
[2021-08-25] MEDS: INSULIN REGULAR 100 UNIT/ML SUBCUT SCH ×3 (01:27→12:42)
[2021-08-25 04:49] LABS: Basophils % 0.4 % (0.0-0.8); Eosinophils # 0.5 10*3/uL (0.0-0.87); Eosinophils % 5.5 % (0.00-10.9); Hematocrit 23.9 VOL% (42.0-52.0); Hemoglobin 7.6 GM/DL (14.0-18.0); Immature Granulocytes % 0.5 %; Immature Granulocytes Absolute 0.05 #; Lymphocytes % 10.1 % (21.2-54.2); Mean Corpuscular HGB Conc 31.8 GM/DL (32-36); Mean Corpuscular Volume 92.3 FL (87-102); Mean Platelet Volume 8.5 FL (9.6-12.0); Monocytes % 8.4 % (1.7-12.7); Neutrophils % 75.1 % (38.7-73.9); Platelet Count 378 T/CUMM (130-400); Red Blood Count 2.59 MC/CUMM (3.8-5.5); Red Cell Distribution Width 15.3 % (9.3-17.3); White Blood Count 9.5 T/CUMM (4-12)
[2021-08-25 05:10] LABS: Calcium 7.5 MG/DL (8.5-10.1); Potassium 3.3 MMOL/L (3.5-5.1)
[2021-08-25 05:27] LABS: Risk Ratio 5.11; VLDL Cholesterol 46.2 MG/DL
[2021-08-25] MEDS: cilostazoL 100 MG TABLET PO SCH (08:46)
[2021-08-25] MEDS: carvediloL 25 MG TABLET PO SCH (08:46)
[2021-08-25] MEDS: APIXABAN 2.5 MG TABLET PO SCH (08:46)
[2021-08-25] MEDS: ASPIRIN EC 81 MG TABLET PO SCH (08:46)
[2021-08-25] MEDS: amLODIPine 5 MG TABLET PO SCH (08:46)
[2021-08-25] MEDS: OMEPRAZOLE ODT 20 MG TABLET PO SCH (08:49)
[2021-08-25] MEDS: DORZOLAMIDE/TIMOLOL OPH SOLN 10 ML BOTTLE BOTH EYES SCH (08:49)
[2021-08-25 13:24] VITALS: BP 138/68
== END 2021-08-25 14:38 | DRG 500 ==
LOC: EDBD → EDUNIT# → N.EDINP 12:19 → N.ED 12:19 → N.3E 15:25 → SUATTDRO 08-13 15:19 → N.ICU 08-14 13:53 → N.TELES 08-20 22:16
PROVIDERS: ADMIT Surgery; ATTEND Surgery

== ENCOUNTER 2021-10-14 05:58 | Inpatient (IN) ==
[~2021-10-14 05:58] MED LIST: ASPIRIN 325 MG TABLET PO ONE; DIAZEPAM 5 MG TABLET PO ONE; MAGNESIUM SULF RIDER 2 GM/50 ML PREMIX IV PRN; POTASSIUM CHLORIDE RIDER 10 MEQ/100 ML PREMIX IV PRN; diphenhydrAMINE CAP 50 MG CAPSULE PO ONE
[2021-10-14 06:58] LABS: Basophils # 0.1 10*3/uL (0.0-0.2); Basophils % 0.7 % (0.0-0.8); Eosinophils # 0.4 10*3/uL (0.0-0.87); Eosinophils % 3.4 % (0.00-10.9); Hematocrit 37.8 VOL% (42.0-52.0); Hemoglobin 11.5 GM/DL (14.0-18.0); Immature Granulocytes % 0.7 %; Immature Granulocytes Absolute 0.08 #; Lymphocytes # 1.2 10*3/uL (1.4-4.0); Lymphocytes % 11.1 % (21.2-54.2); Mean Corpuscular HGB Conc 30.4 GM/DL (32-36); Mean Corpuscular Volume 99.7 FL (87-102); Mean Platelet Volume 8.7 FL (9.6-12.0); Neutrophils % 74.1 % (38.7-73.9); Platelet Count 410 T/CUMM (130-400); Red Blood Count 3.79 MC/CUMM (3.8-5.5)
[2021-10-14] MEDS ORDERED: ASPIRIN 325 MG TABLET ONE (07:08)
[2021-10-14] MEDS ORDERED: DIAZEPAM 5 MG TABLET ONE (07:08)
[2021-10-14] MEDS ORDERED: diphenhydrAMINE CAP 50 MG CAPSULE ONE (07:08)
[2021-10-14] MEDS: SODIUM CHLORIDE 0.9% 1,000 ML IV SCH ×2 (07:10→18:46)
[2021-10-14 07:12] LABS: Calcium 9.7 MG/DL (8.5-10.1); Osmolality,Calculated 285.2 MOS/KG (273-304); Potassium 4.8 MMOL/L (3.5-5.1)
[2021-10-14] MEDS ORDERED: amLODIPine 10 MG TABLET PO ONE (07:33)
[2021-10-14] MEDS ORDERED: hydrALAZINE 20 MG/1 ML VIAL ONE ×2 (10:40→11:47)
[2021-10-14] MEDS ORDERED: HEPARIN 5,000 UNIT/1 ML VIAL ONE ×2 (10:46→12:02)
[2021-10-14] MEDS ORDERED: HYDROmorphone 2 MG/1 ML VIAL ONE ×2 (11:41→13:02)
[2021-10-14] MEDS ORDERED: TIROFIBAN 5,000 MCG/100 ML PREMIX IV ONE ×2 (12:56→13:40)
[2021-10-14] MEDS ORDERED: NITROPRUSSIDE 50 MG/2 ML VIAL ONE (13:26)
[2021-10-14] MEDS ORDERED: MAGNESIUM SULF RIDER 2 GM/50 ML PREMIX IV PRN (14:36)
[2021-10-14] MEDS ORDERED: NICOTINE 21 MG/24 HR PATCH TRANSDERM PRN (14:36)
[2021-10-14] MEDS ORDERED: ONDANSETRON 4 MG/2 ML VIAL IV PRN (14:36)
[2021-10-14] MEDS ORDERED: hydrALAZINE 20 MG/1 ML VIAL IV PRN (14:36)
[2021-10-14] MEDS ORDERED: guaiFENesin/DM ER 600-30 MG TABLET PO PRN (14:36)
[2021-10-14] MEDS ORDERED: DOCUSATE SODIUM 100 MG CAPSULE PO PRN (14:36)
[2021-10-14] MEDS ORDERED: MAGNESIUM SULF RIDER 4 GM/100 ML PREMIX IV PRN (14:36)
[2021-10-14] MEDS ORDERED: diphenhydrAMINE CAP 25 MG CAPSULE PO PRN (14:36)
[2021-10-14] MEDS ORDERED: ALUMINUM/MAGNES/SIMETH MAX STR 30 ML UDCUP PO PRN (14:36)
[2021-10-14] MEDS ORDERED: ACETAMINOPHEN 325 MG TABLET PO PRN (14:36)
[2021-10-14] MEDS ORDERED: ZALEPLON 5 MG CAPSULE PO PRN (14:36)
[2021-10-14] MEDS ORDERED: MORPHINE 2 MG/1 ML SYRINGE IV PRN (14:36)
[2021-10-14] MEDS ORDERED: VANCOMYCIN INJ 750 MG in SODIUM CHLORIDE 0.9% 250 ML IV PRN (15:55)
[2021-10-14] MEDS ORDERED: VANCOMYCIN INJ 2,000 MG in SODIUM CHLORIDE 0.9% 500 ML IV ONE (17:00)
[2021-10-14] MEDS: carvediloL 25 MG TABLET PO SCH (18:47)
[2021-10-14] MEDS: PANTOPRAZOLE 40 MG VIAL IV SCH (21:29)
[2021-10-14] MEDS: ATORVASTATIN 40 MG TABLET PO SCH (21:29)
[2021-10-14] MEDS: DORZOLAMIDE/TIMOLOL OPH SOLN 10 ML BOTTLE BOTH EYES SCH (21:30)
[2021-10-15] MEDS: SODIUM CHLORIDE 0.9% 1,000 ML IV SCH (01:39)
[2021-10-15 06:50] LABS: Basophils # 0.1 10*3/uL (0.0-0.2); Basophils % 0.6 % (0.0-0.8); Eosinophils # 0.5 10*3/uL (0.0-0.87); Eosinophils % 4.8 % (0.00-10.9); Hematocrit 32.6 VOL% (42.0-52.0); Hemoglobin 9.8 GM/DL (14.0-18.0); Immature Granulocytes % 0.6 %; Immature Granulocytes Absolute 0.06 #; Lymphocytes % 10.5 % (21.2-54.2); Mean Corpuscular HGB Conc 30.1 GM/DL (32-36); Mean Corpuscular Volume 99.7 FL (87-102); Mean Platelet Volume 8.7 FL (9.6-12.0); Monocytes % 8.2 % (1.7-12.7); Neutrophils % 75.3 % (38.7-73.9); Platelet Count 399 T/CUMM (130-400); Red Blood Count 3.27 MC/CUMM (3.8-5.5); Red Cell Distribution Width 17.2 % (9.3-17.3); White Blood Count 9.4 T/CUMM (4-12)
[2021-10-15 07:22] LABS: Albumin 2.5 G/DL (3.4-5.0); Bilirubin,Total 0.4 MG/DL (0.20-1.00); Calcium 8.6 MG/DL (8.5-10.1); Osmolality,Calculated 285.8 MOS/KG (273-304); Potassium 4.7 MMOL/L (3.5-5.1); Risk Ratio 2.38
[2021-10-15] MEDS: amLODIPine 5 MG TABLET PO SCH (09:19)
[2021-10-15] MEDS: ASPIRIN EC 81 MG TABLET PO SCH (09:19)
[2021-10-15] MEDS: DORZOLAMIDE/TIMOLOL OPH SOLN 10 ML BOTTLE BOTH EYES SCH ×3 (09:19→20:30)
[2021-10-15] MEDS: carvediloL 25 MG TABLET PO SCH ×2 (09:19→17:51)
[2021-10-15] MEDS: PANTOPRAZOLE 40 MG VIAL IV SCH ×2 (09:20→20:30)
[2021-10-15] MEDS: glipiZIDE 5 MG TABLET PO SCH (09:21)
[2021-10-15] MEDS ORDERED: VANCOMYCIN INJ 750 MG in SODIUM CHLORIDE 0.9% 250 ML IV ONE (17:00)
[2021-10-15] MEDS: ATORVASTATIN 40 MG TABLET PO SCH (20:30)
[2021-10-16 05:41] LABS: Basophils # 0.1 10*3/uL (0.0-0.2); Basophils % 0.5 % (0.0-0.8); Eosinophils # 0.4 10*3/uL (0.0-0.87); Eosinophils % 3.8 % (0.00-10.9); Hemoglobin 9.5 GM/DL (14.0-18.0); Immature Granulocytes % 0.5 %; Immature Granulocytes Absolute 0.05 #; Lymphocytes # 1.2 10*3/uL (1.4-4.0); Lymphocytes % 11.5 % (21.2-54.2); Mean Corpuscular HGB Conc 30.6 GM/DL (32-36); Mean Corpuscular Volume 97.8 FL (87-102); Mean Platelet Volume 8.5 FL (9.6-12.0); Monocytes % 10.8 % (1.7-12.7); Neutrophils % 72.9 % (38.7-73.9); Platelet Count 370 T/CUMM (130-400); Red Blood Count 3.17 MC/CUMM (3.8-5.5); Red Cell Distribution Width 17.2 % (9.3-17.3); White Blood Count 10.3 T/CUMM (4-12)
[2021-10-16 06:02] LABS: Calcium 8.4 MG/DL (8.5-10.1); Potassium 3.8 MMOL/L (3.5-5.1)
[2021-10-16] MEDS ORDERED: propofoL 200 MG/20 ML VIAL IV ONE (08:38)
[2021-10-16] MEDS ORDERED: LIDOCAINE 2% 5 ML VIAL ONE (08:38)
[2021-10-16] MEDS ORDERED: fentaNYL 100 MCG/2 ML VIAL ONE (08:39)
[2021-10-16] MEDS ORDERED: MIDAZOLAM 2 MG/2 ML VIAL ONE (08:39)
[2021-10-16] MEDS ORDERED: SEVOFLURANE 1 UNIT/15 MINUTE INH ONE ×4 (08:42→09:37)
[2021-10-16] MEDS ORDERED: SODIUM CHLORIDE 0.9% 250 ML IV SCH (09:00)
[2021-10-16] MEDS ORDERED: BUPIVACAINE 0.5% 50 ML VIAL ONE (09:03)
[2021-10-16] MEDS: amLODIPine 5 MG TABLET PO SCH (10:43)
[2021-10-16] MEDS: ASPIRIN EC 81 MG TABLET PO SCH (10:43)
[2021-10-16] MEDS: carvediloL 25 MG TABLET PO SCH ×2 (10:44→17:10)
[2021-10-16] MEDS: PANTOPRAZOLE 40 MG VIAL IV SCH ×2 (10:44→21:14)
[2021-10-16] MEDS: DORZOLAMIDE/TIMOLOL OPH SOLN 10 ML BOTTLE BOTH EYES SCH ×3 (10:44→21:15)
[2021-10-16] MEDS: glipiZIDE 5 MG TABLET PO SCH (10:45)
[2021-10-16] MEDS ORDERED: VANCOMYCIN INJ 750 MG in SODIUM CHLORIDE 0.9% 250 ML IV ONE (17:00)
[2021-10-16] MEDS: ATORVASTATIN 40 MG TABLET PO SCH (21:15)
[2021-10-17] MEDS: glipiZIDE 5 MG TABLET PO SCH (09:51)
[2021-10-17] MEDS: carvediloL 25 MG TABLET PO SCH ×2 (09:51→17:06)
[2021-10-17] MEDS: PANTOPRAZOLE 40 MG VIAL IV SCH ×2 (09:52→21:22)
[2021-10-17] MEDS: DORZOLAMIDE/TIMOLOL OPH SOLN 10 ML BOTTLE BOTH EYES SCH ×3 (09:52→21:23)
[2021-10-17] MEDS: ASPIRIN EC 81 MG TABLET PO SCH (09:52)
[2021-10-17] MEDS: amLODIPine 5 MG TABLET PO SCH (09:53)
[2021-10-17] MEDS ORDERED: CLOPIDOGREL 75 MG TABLET PO ONE (11:30)
[2021-10-17] MEDS ORDERED: POLYETHYLENE GLYCOL POWDER 17 GM PACK PO PRN (16:55)
[2021-10-17] MEDS: ATORVASTATIN 40 MG TABLET PO SCH (21:22)
[2021-10-18] MEDS: carvediloL 25 MG TABLET PO SCH ×2 (10:25→16:09)
[2021-10-18] MEDS: PANTOPRAZOLE 40 MG VIAL IV SCH (10:25)
[2021-10-18] MEDS: ASPIRIN EC 81 MG TABLET PO SCH (10:25)
[2021-10-18] MEDS: amLODIPine 5 MG TABLET PO SCH (10:25)
[2021-10-18] MEDS: glipiZIDE 5 MG TABLET PO SCH (10:25)
[2021-10-18] MEDS: DORZOLAMIDE/TIMOLOL OPH SOLN 10 ML BOTTLE BOTH EYES SCH ×2 (10:26→14:28)
[2021-10-18] MEDS ORDERED: CLOPIDOGREL 75 MG TABLET PO SCH (10:36)
[2021-10-18] MEDS ORDERED: cilostazoL 100 MG TABLET PO SCH (10:42)
[2021-10-18 17:12] VITALS: BP 134/60
== END 2021-10-18 17:34 | DRG 270 ==
LOC: N.CL 05:58 → N.5E 15:46
PROVIDERS: ADMIT Internal Medicine Cardiovascular Disease; ATTEND Internal Medicine Cardiovascular Disease

== ENCOUNTER 2021-11-30 11:36 | Inpatient (IN) ==
[2021-11-30] MEDS ORDERED: DEXTROSE 10% 250 ML BAG IV PRN (14:58)
[2021-11-30] MEDS ORDERED: GLUCAGON 1 MG VIAL IM PRN (14:58)
[2021-11-30] MEDS ORDERED: PIPERACILLIN/TAZOBACTAM 3,375 MG in SODIUM CHLORIDE 0.9% 100 ML IV SCH (16:00)
[2021-11-30] MEDS ORDERED: ONDANSETRON 4 MG/2 ML VIAL IV PRN (16:06)
[2021-11-30] MEDS ORDERED: ACETAMINOPHEN 325 MG TABLET PO PRN (16:06)
[2021-11-30 18:18] LABS: Osmolality,Calculated 279.7 MOS/KG (273-304)
[2021-11-30] MEDS ORDERED: carvediloL 25 MG TABLET PO SCH (21:00)
[2021-11-30] MEDS: DORZOLAMIDE/TIMOLOL OPH SOLN 10 ML BOTTLE BOTH EYES SCH (21:24)
[2021-11-30] MEDS: cilostazoL 100 MG TABLET PO SCH (21:24)
[2021-11-30] MEDS: ATORVASTATIN 40 MG TABLET PO SCH (21:24)
[2021-12-01] MEDS: PIPERACILLIN/TAZOBACTAM 3,375 MG in SODIUM CHLORIDE 0.9% 100 ML IV SCH ×2 (05:31→17:39)
[2021-12-01 06:07] LABS: Basophils # 0.1 10*3/uL (0.0-0.2); Basophils % 0.5 % (0.0-0.8); Eosinophils # 0.5 10*3/uL (0.0-0.87); Eosinophils % 3.4 % (0.00-10.9); Hematocrit 27.9 VOL% (42.0-52.0); Hemoglobin 8.5 GM/DL (14.0-18.0); Immature Granulocytes % 0.5 %; Immature Granulocytes Absolute 0.06 #; Lymphocytes % 7.4 % (21.2-54.2); Mean Corpuscular HGB Conc 30.5 GM/DL (32-36); Mean Corpuscular Volume 88.9 FL (87-102); Mean Platelet Volume 8.2 FL (9.6-12.0); Monocytes % 8.4 % (1.7-12.7); Neutrophils % 79.8 % (38.7-73.9); Platelet Count 380 T/CUMM (130-400); Red Blood Count 3.14 MC/CUMM (3.8-5.5); Red Cell Distribution Width 15.5 % (9.3-17.3); White Blood Count 13.2 T/CUMM (4-12)
[2021-12-01] MEDS: carvediloL 25 MG TABLET PO SCH ×2 (07:55→17:38)
[2021-12-01] MEDS: glipiZIDE 5 MG TABLET PO SCH (08:08)
[2021-12-01] MEDS: cilostazoL 100 MG TABLET PO SCH ×2 (08:08→21:44)
[2021-12-01] MEDS: amLODIPine 5 MG TABLET PO SCH (08:08)
[2021-12-01] MEDS: PANTOPRAZOLE 40 MG TABLET PO SCH (08:08)
[2021-12-01] MEDS: DORZOLAMIDE/TIMOLOL OPH SOLN 10 ML BOTTLE BOTH EYES SCH ×3 (08:08→21:44)
[2021-12-01] MEDS ORDERED: MIDAZOLAM 2 MG/2 ML VIAL ONE (09:53)
[2021-12-01] MEDS ORDERED: SEVOFLURANE 1 UNIT/15 MINUTE INH ONE (09:53)
[2021-12-01] MEDS ORDERED: propofoL 200 MG/20 ML VIAL IV ONE (09:53)
[2021-12-01] MEDS ORDERED: ONDANSETRON 4 MG/2 ML VIAL ONE (09:53)
[2021-12-01] MEDS ORDERED: fentaNYL 100 MCG/2 ML VIAL ONE (09:53)
[2021-12-01] MEDS ORDERED: LIDOCAINE 2% 5 ML VIAL ONE (09:53)
[2021-12-01] MEDS ORDERED: ePHEDrine 50 MG/ML VIAL ONE (10:28)
[2021-12-01] MEDS ORDERED: SODIUM CHLORIDE 0.9% 250 ML IV SCH (10:30)
[2021-12-01] MEDS ORDERED: PHENYLEPHRINE 1 MG/10 ML SYRINGE IV ONE (10:45)
[2021-12-01] MEDS ORDERED: PHENYLEPHRINE 10 MG/1 ML VIAL IV ONE (11:01)
[2021-12-01] MEDS ORDERED: HYDROmorphone 2 MG/1 ML VIAL ONE (11:24)
[2021-12-01] MEDS ORDERED: SODIUM CHLORIDE 0.9% 250 ML IV ONE (11:26)
[2021-12-01] MEDS ORDERED: KETOROLAC 30 MG/1 ML VIAL ONE (11:32)
[2021-12-01] MEDS ORDERED: NALOXONE 0.4 MG/ML VIAL IV PRN (11:37)
[2021-12-01] MEDS ORDERED: GLUCAGON 1 MG VIAL IM PRN (11:39)
[2021-12-01] MEDS ORDERED: DEXTROSE 50% 25 GM/50 ML VIAL IV PRN (11:39)
[2021-12-01] MEDS: HYDROmorphone PCA 30 MG/30 ML SYRINGE IV SCH (11:54)
[2021-12-01 12:05] LABS: Hematocrit 26.8 VOL% (42.0-52.0); Hemoglobin 8.1 GM/DL (14.0-18.0)
[2021-12-01] MEDS: KETOROLAC 10 MG TABLET PO SCH ×2 (14:18→17:38)
[2021-12-01] MEDS: INSULIN REGULAR 100 UNIT/ML SUBCUT SCH ×2 (16:34→23:41)
[2021-12-01] MEDS: ATORVASTATIN 40 MG TABLET PO SCH (21:44)
[2021-12-02] MEDS: KETOROLAC 10 MG TABLET PO SCH ×4 (00:53→17:32)
[2021-12-02] MEDS: PIPERACILLIN/TAZOBACTAM 3,375 MG in SODIUM CHLORIDE 0.9% 100 ML IV SCH ×2 (05:19→17:33)
[2021-12-02 05:47] LABS: Basophils # 0.1 10*3/uL (0.0-0.2); Basophils % 0.8 % (0.0-0.8); Eosinophils # 0.4 10*3/uL (0.0-0.87); Eosinophils % 3.9 % (0.00-10.9); Hematocrit 22.6 VOL% (42.0-52.0); Hemoglobin 6.6 GM/DL (14.0-18.0); Immature Granulocytes % 0.6 %; Immature Granulocytes Absolute 0.06 #; Lymphocytes # 0.9 10*3/uL (1.4-4.0); Mean Corpuscular HGB Conc 29.2 GM/DL (32-36); Mean Corpuscular Volume 94.2 FL (87-102); Mean Platelet Volume 8.8 FL (9.6-12.0); Monocytes % 8.1 % (1.7-12.7); Neutrophils % 77.6 % (38.7-73.9); Platelet Count 339 T/CUMM (130-400); Red Cell Distribution Width 15.9 % (9.3-17.3)
[2021-12-02 06:04] LABS: Calcium 7.8 MG/DL (8.5-10.1); Osmolality,Calculated 281.2 MOS/KG (273-304); Potassium 4.4 MMOL/L (3.5-5.1)
[2021-12-02] MEDS: INSULIN REGULAR 100 UNIT/ML SUBCUT SCH ×4 (08:44→21:23)
[2021-12-02] MEDS: PANTOPRAZOLE 40 MG TABLET PO SCH (09:17)
[2021-12-02] MEDS: amLODIPine 5 MG TABLET PO SCH (09:17)
[2021-12-02] MEDS: carvediloL 25 MG TABLET PO SCH ×2 (09:17→17:32)
[2021-12-02] MEDS: cilostazoL 100 MG TABLET PO SCH ×2 (09:17→21:23)
[2021-12-02] MEDS: DORZOLAMIDE/TIMOLOL OPH SOLN 10 ML BOTTLE BOTH EYES SCH ×3 (09:17→21:22)
[2021-12-02] MEDS: glipiZIDE 5 MG TABLET PO SCH (09:17)
[2021-12-02] MEDS: HYDROmorphone PCA 30 MG/30 ML SYRINGE IV SCH (15:55)
[2021-12-02] MEDS: ATORVASTATIN 40 MG TABLET PO SCH (21:23)
[2021-12-03] MEDS: KETOROLAC 10 MG TABLET PO SCH ×5 (00:10→23:25)
[2021-12-03] MEDS: PIPERACILLIN/TAZOBACTAM 3,375 MG in SODIUM CHLORIDE 0.9% 100 ML IV SCH (06:39)
[2021-12-03] MEDS: carvediloL 25 MG TABLET PO SCH ×2 (08:02→16:08)
[2021-12-03] MEDS: INSULIN REGULAR 100 UNIT/ML SUBCUT SCH ×4 (08:02→22:40)
[2021-12-03] MEDS: DORZOLAMIDE/TIMOLOL OPH SOLN 10 ML BOTTLE BOTH EYES SCH ×3 (08:02→21:21)
[2021-12-03] MEDS: glipiZIDE 5 MG TABLET PO SCH (08:03)
[2021-12-03] MEDS: cilostazoL 100 MG TABLET PO SCH ×2 (08:03→21:22)
[2021-12-03] MEDS: amLODIPine 5 MG TABLET PO SCH (08:03)
[2021-12-03] MEDS: PANTOPRAZOLE 40 MG TABLET PO SCH (08:03)
[2021-12-03] MEDS: HYDROmorphone PCA 30 MG/30 ML SYRINGE IV SCH (13:16)
[2021-12-03] MEDS: ATORVASTATIN 40 MG TABLET PO SCH (21:22)
[2021-12-04] MEDS: KETOROLAC 10 MG TABLET PO SCH ×3 (05:52→18:53)
[2021-12-04] MEDS: INSULIN REGULAR 100 UNIT/ML SUBCUT SCH ×4 (13:14→21:08)
[2021-12-04] MEDS: carvediloL 25 MG TABLET PO SCH ×2 (13:21→17:30)
[2021-12-04] MEDS: glipiZIDE 5 MG TABLET PO SCH (13:21)
[2021-12-04] MEDS: cilostazoL 100 MG TABLET PO SCH ×2 (13:21→21:25)
[2021-12-04] MEDS: PANTOPRAZOLE 40 MG TABLET PO SCH (13:21)
[2021-12-04] MEDS: amLODIPine 5 MG TABLET PO SCH (13:22)
[2021-12-04] MEDS: DORZOLAMIDE/TIMOLOL OPH SOLN 10 ML BOTTLE BOTH EYES SCH ×3 (13:24→21:28)
[2021-12-04] MEDS: HYDROmorphone PCA 30 MG/30 ML SYRINGE IV SCH (13:25)
[2021-12-04] MEDS: ATORVASTATIN 40 MG TABLET PO SCH (21:25)
[2021-12-05] MEDS: KETOROLAC 10 MG TABLET PO SCH ×2 (00:31→05:26)
[2021-12-05] MEDS: carvediloL 25 MG TABLET PO SCH ×2 (09:16→17:20)
[2021-12-05] MEDS: cilostazoL 100 MG TABLET PO SCH ×2 (09:16→21:52)
[2021-12-05] MEDS: PANTOPRAZOLE 40 MG TABLET PO SCH (09:16)
[2021-12-05] MEDS: amLODIPine 5 MG TABLET PO SCH (09:17)
[2021-12-05] MEDS: INSULIN REGULAR 100 UNIT/ML SUBCUT SCH ×4 (10:24→21:57)
[2021-12-05] MEDS: DORZOLAMIDE/TIMOLOL OPH SOLN 10 ML BOTTLE BOTH EYES SCH ×3 (10:25→21:57)
[2021-12-05] MEDS: glipiZIDE 5 MG TABLET PO SCH (10:27)
[2021-12-05] MEDS: ATORVASTATIN 40 MG TABLET PO SCH (21:52)
[2021-12-06 04:58] LABS: Basophils # 0.1 10*3/uL (0.0-0.2); Basophils % 0.5 % (0.0-0.8); Eosinophils # 0.6 10*3/uL (0.0-0.87); Eosinophils % 5.4 % (0.00-10.9); Hematocrit 21.9 VOL% (42.0-52.0); Hemoglobin 6.5 GM/DL (14.0-18.0); Immature Granulocytes % 0.6 %; Immature Granulocytes Absolute 0.06 #; Lymphocytes # 0.9 10*3/uL (1.4-4.0); Lymphocytes % 8.5 % (21.2-54.2); Mean Corpuscular HGB Conc 29.7 GM/DL (32-36); Mean Platelet Volume 8.3 FL (9.6-12.0); Monocytes % 8.4 % (1.7-12.7); Neutrophils % 76.6 % (38.7-73.9); Platelet Count 333 T/CUMM (130-400); Red Blood Count 2.38 MC/CUMM (3.8-5.5); Red Cell Distribution Width 16.5 % (9.3-17.3); White Blood Count 10.3 T/CUMM (4-12)
[2021-12-06] MEDS: carvediloL 25 MG TABLET PO SCH ×2 (08:38→16:26)
[2021-12-06] MEDS: PANTOPRAZOLE 40 MG TABLET PO SCH (08:38)
[2021-12-06] MEDS: DORZOLAMIDE/TIMOLOL OPH SOLN 10 ML BOTTLE BOTH EYES SCH ×3 (08:38→21:02)
[2021-12-06] MEDS: INSULIN REGULAR 100 UNIT/ML SUBCUT SCH ×4 (08:38→21:00)
[2021-12-06] MEDS: cilostazoL 100 MG TABLET PO SCH ×2 (08:38→21:01)
[2021-12-06] MEDS: amLODIPine 5 MG TABLET PO SCH (08:38)
[2021-12-06] MEDS ORDERED: SODIUM CHLORIDE 0.9% 1,000 ML IV PRN ×2 (10:29→10:31)
[2021-12-06] MEDS: ATORVASTATIN 40 MG TABLET PO SCH (21:02)
[2021-12-07] MEDS: INSULIN REGULAR 100 UNIT/ML SUBCUT SCH ×4 (08:53→21:25)
[2021-12-07] MEDS: DORZOLAMIDE/TIMOLOL OPH SOLN 10 ML BOTTLE BOTH EYES SCH ×3 (10:47→20:56)
[2021-12-07] MEDS: amLODIPine 5 MG TABLET PO SCH (10:47)
[2021-12-07] MEDS: PANTOPRAZOLE 40 MG TABLET PO SCH (10:47)
[2021-12-07] MEDS: carvediloL 25 MG TABLET PO SCH ×2 (10:47→18:04)
[2021-12-07] MEDS: cilostazoL 100 MG TABLET PO SCH ×2 (10:47→20:56)
[2021-12-07] MEDS: ATORVASTATIN 40 MG TABLET PO SCH (20:56)
[2021-12-08] MEDS: INSULIN REGULAR 100 UNIT/ML SUBCUT SCH ×4 (08:40→22:09)
[2021-12-08] MEDS: PANTOPRAZOLE 40 MG TABLET PO SCH (10:48)
[2021-12-08] MEDS: amLODIPine 5 MG TABLET PO SCH (10:48)
[2021-12-08] MEDS: carvediloL 25 MG TABLET PO SCH ×2 (10:48→18:08)
[2021-12-08] MEDS: cilostazoL 100 MG TABLET PO SCH ×2 (10:48→21:25)
[2021-12-08] MEDS: DORZOLAMIDE/TIMOLOL OPH SOLN 10 ML BOTTLE BOTH EYES SCH ×3 (10:48→21:25)
[2021-12-08] MEDS: ATORVASTATIN 40 MG TABLET PO SCH (21:25)
[2021-12-09] MEDS: INSULIN REGULAR 100 UNIT/ML SUBCUT SCH ×4 (08:28→21:57)
[2021-12-09] MEDS: PANTOPRAZOLE 40 MG TABLET PO SCH (09:06)
[2021-12-09] MEDS: cilostazoL 100 MG TABLET PO SCH ×2 (09:06→20:56)
[2021-12-09] MEDS: carvediloL 25 MG TABLET PO SCH ×2 (09:06→16:40)
[2021-12-09] MEDS: amLODIPine 5 MG TABLET PO SCH (09:06)
[2021-12-09] MEDS: DORZOLAMIDE/TIMOLOL OPH SOLN 10 ML BOTTLE BOTH EYES SCH ×3 (09:07→20:58)
[2021-12-09] MEDS: ATORVASTATIN 40 MG TABLET PO SCH (20:56)
[2021-12-10] MEDS: DORZOLAMIDE/TIMOLOL OPH SOLN 10 ML BOTTLE BOTH EYES SCH ×3 (08:59→20:42)
[2021-12-10] MEDS: cilostazoL 100 MG TABLET PO SCH ×2 (08:59→20:42)
[2021-12-10] MEDS: PANTOPRAZOLE 40 MG TABLET PO SCH (08:59)
[2021-12-10] MEDS: amLODIPine 5 MG TABLET PO SCH (08:59)
[2021-12-10] MEDS: carvediloL 25 MG TABLET PO SCH ×2 (08:59→16:30)
[2021-12-10] MEDS: INSULIN REGULAR 100 UNIT/ML SUBCUT SCH ×4 (09:03→21:21)
[2021-12-10] MEDS: ATORVASTATIN 40 MG TABLET PO SCH (20:42)
[2021-12-11] MEDS: cilostazoL 100 MG TABLET PO SCH ×2 (08:12→21:28)
[2021-12-11] MEDS: DORZOLAMIDE/TIMOLOL OPH SOLN 10 ML BOTTLE BOTH EYES SCH ×3 (08:13→22:01)
[2021-12-11] MEDS: amLODIPine 5 MG TABLET PO SCH (08:13)
[2021-12-11] MEDS: PANTOPRAZOLE 40 MG TABLET PO SCH (08:13)
[2021-12-11] MEDS: carvediloL 25 MG TABLET PO SCH ×2 (08:13→18:05)
[2021-12-11] MEDS: INSULIN REGULAR 100 UNIT/ML SUBCUT SCH ×4 (08:21→21:28)
[2021-12-11] MEDS: ATORVASTATIN 40 MG TABLET PO SCH (21:28)
[2021-12-12] MEDS: cilostazoL 100 MG TABLET PO SCH ×2 (08:37→20:47)
[2021-12-12] MEDS: PANTOPRAZOLE 40 MG TABLET PO SCH (08:37)
[2021-12-12] MEDS: carvediloL 25 MG TABLET PO SCH ×2 (08:37→16:25)
[2021-12-12] MEDS: amLODIPine 5 MG TABLET PO SCH (08:37)
[2021-12-12] MEDS: INSULIN REGULAR 100 UNIT/ML SUBCUT SCH ×4 (08:38→20:47)
[2021-12-12] MEDS: DORZOLAMIDE/TIMOLOL OPH SOLN 10 ML BOTTLE BOTH EYES SCH ×3 (09:39→20:47)
[2021-12-12] MEDS: ATORVASTATIN 40 MG TABLET PO SCH (20:47)
[2021-12-13] MEDS: DORZOLAMIDE/TIMOLOL OPH SOLN 10 ML BOTTLE BOTH EYES SCH ×3 (08:50→21:37)
[2021-12-13] MEDS: PANTOPRAZOLE 40 MG TABLET PO SCH (08:55)
[2021-12-13] MEDS: carvediloL 25 MG TABLET PO SCH ×2 (08:55→16:44)
[2021-12-13] MEDS: amLODIPine 5 MG TABLET PO SCH (08:55)
[2021-12-13] MEDS: cilostazoL 100 MG TABLET PO SCH ×2 (08:56→21:37)
[2021-12-13] MEDS: INSULIN REGULAR 100 UNIT/ML SUBCUT SCH ×4 (10:08→22:19)
[2021-12-13] MEDS: ATORVASTATIN 40 MG TABLET PO SCH (21:37)
[2021-12-14 08:12] VITALS: BP 139/68
[2021-12-14] MEDS: INSULIN REGULAR 100 UNIT/ML SUBCUT SCH ×3 (08:24→16:01)
[2021-12-14] MEDS: DORZOLAMIDE/TIMOLOL OPH SOLN 10 ML BOTTLE BOTH EYES SCH ×2 (10:04→17:09)
[2021-12-14] MEDS: amLODIPine 5 MG TABLET PO SCH (10:04)
[2021-12-14] MEDS: carvediloL 25 MG TABLET PO SCH ×2 (10:04→17:09)
[2021-12-14] MEDS: cilostazoL 100 MG TABLET PO SCH (10:04)
[2021-12-14] MEDS: PANTOPRAZOLE 40 MG TABLET PO SCH (10:04)
[2021-12-14 11:35] LABS: Calcium 8.7 MG/DL (8.5-10.1); Osmolality,Calculated 285.5 MOS/KG (273-304); Potassium 4.1 MMOL/L (3.5-5.1)
== END 2021-12-14 17:44 | DRG 239 ==
LOC: N.3E 14:05
PROVIDERS: ADMIT Surgery; ATTEND Surgery

== ENCOUNTER 2021-12-22 11:58 | Inpatient (IN) ==
[2021-12-22] MEDS ORDERED: SODIUM CHLORIDE 0.9% 500 ML IV STA (12:31)
[2021-12-22 12:41] LABS: Basophils # 0.1 10*3/uL (0.0-0.2); Basophils % 0.3 % (0.0-0.8); Eosinophils % 0.1 % (0.00-10.9); Hematocrit 27.6 VOL% (42.0-52.0); Hemoglobin 8.5 GM/DL (14.0-18.0); Immature Granulocytes % 0.8 %; Immature Granulocytes Absolute 0.14 #; Lymphocytes % 5.5 % (21.2-54.2); Mean Corpuscular HGB Conc 30.8 GM/DL (32-36); Mean Corpuscular Volume 90.2 FL (87-102); Mean Platelet Volume 9.3 FL (9.6-12.0); Monocytes % 10.6 % (1.7-12.7); Neutrophils % 82.7 % (38.7-73.9); Platelet Count 245 T/CUMM (130-400); Red Blood Count 3.06 MC/CUMM (3.8-5.5); Red Cell Distribution Width 15.9 % (9.3-17.3); White Blood Count 17.6 T/CUMM (4-12)
[2021-12-22 12:52] LABS: Albumin 2.7 G/DL (3.4-5.0); Bilirubin,Total 0.8 MG/DL (0.20-1.00); Calcium 8.6 MG/DL (8.5-10.1); Osmolality,Calculated 280.2 MOS/KG (273-304); Total Protein 7.6 G/DL (6.4-8.2)
[2021-12-22] MEDS ORDERED: PIPERACILLIN/TAZOBACTAM 3,375 MG VIAL IV ONE (14:11)
[2021-12-22] MEDS ORDERED: SODIUM CHLORIDE 0.9% 100 ML IV ONE (14:12)
[2021-12-22] MEDS ORDERED: SODIUM CHLORIDE 0.9% 1,000 ML IV STA (14:30)
[2021-12-22] MEDS ORDERED: PIPERACILLIN/TAZOBACTAM 3,375 MG in SODIUM CHLORIDE 0.9% 100 ML IV STA (14:37)
[2021-12-22] MEDS ORDERED: GLUCAGON 1 MG VIAL IM PRN (14:40)
[2021-12-22] MEDS ORDERED: MORPHINE 2 MG/1 ML SYRINGE IV PRN (14:42)
[2021-12-22] MEDS ORDERED: ONDANSETRON 4 MG/2 ML VIAL IV PRN (14:42)
[2021-12-22 15:00] LABS: Arterial Base Excess iSTAT -4 MMOL/L (-2.5-2.5); Arterial Bicarbonate iSTAT 20.4 MMOL/L (20-26); Arterial O2 Saturation iSTAT 94 % (95-100); Arterial PCO2 iSTAT 35 MM HG (35-48); Arterial PO2 iSTAT 71 MM HG (80-95); Arterial Total CO2 iSTAT 21 MMO/L (23-27); Arterial pH iSTAT 7.371 (7.35-7.45)
[2021-12-22] MEDS ORDERED: DEXTROSE 50% 25 GM/50 ML SYRINGE IV ONE (15:15)
[2021-12-22] MEDS ORDERED: DEXTROSE 50% 25 GM/50 ML VIAL IV STA (15:20)
[2021-12-22] MEDS ORDERED: DEXTROSE 50% 25 GM/50 ML SYRINGE IV STA (15:22)
[2021-12-22] MEDS: DEXTROSE 10% 250 ML BAG IV PRN ×2 (18:23→23:40)
[2021-12-22] MEDS: HEPARIN 5,000 UNIT/1 ML VIAL SUBCUT SCH (20:33)
[2021-12-23] MEDS: DEXTROSE 10% 250 ML BAG IV PRN ×4 (01:35→11:48)
[2021-12-23] MEDS: PIPERACILLIN/TAZOBACTAM 3,375 MG in SODIUM CHLORIDE 0.9% 100 ML IV SCH ×2 (02:25→22:04)
[2021-12-23 03:17] LABS: Basophils % 0.2 % (0.0-0.8); Eosinophils % 0.2 % (0.00-10.9); Hematocrit 32.5 VOL% (42.0-52.0); Hemoglobin 9.8 GM/DL (14.0-18.0); Immature Granulocytes % 0.5 %; Immature Granulocytes Absolute 0.08 #; Lymphocytes # 0.5 10*3/uL (1.4-4.0); Lymphocytes % 3.1 % (21.2-54.2); Mean Corpuscular HGB Conc 30.2 GM/DL (32-36); Mean Corpuscular Volume 91.8 FL (87-102); Mean Platelet Volume 8.9 FL (9.6-12.0); Monocytes % 3.1 % (1.7-12.7); Neutrophils % 92.9 % (38.7-73.9); Platelet Count 214 T/CUMM (130-400); Red Blood Count 3.54 MC/CUMM (3.8-5.5); Red Cell Distribution Width 15.7 % (9.3-17.3)
[2021-12-23 03:37] LABS: Hypochromia 1+; Lymphocytes 2 % (20-55); Microcytosis 1+; Platelet Estimate Adequate; Segmented Neutrophils 93 % (50-85); Total Cells Counted 100
[2021-12-23 03:45] LABS: Albumin 2.7 G/DL (3.4-5.0); Bilirubin,Total 0.5 MG/DL (0.20-1.00); Calcium 8.6 MG/DL (8.5-10.1); Osmolality,Calculated 278.5 MOS/KG (273-304); Potassium 4.6 MMOL/L (3.5-5.1); Thyroid Stimulating Hormone 1.35 uIU/ml (0.358-3.74); Total Protein 8.3 G/DL (6.4-8.2)
[2021-12-23] MEDS ORDERED: DEXTROSE 50% 25 GM/50 ML SYRINGE IV ONE (04:02)
[2021-12-23] MEDS: HYDROCORTISONE 100 MG VIAL IV SCH ×3 (04:04→22:04)
[2021-12-23] MEDS ORDERED: DEXTROSE 50% 25 GM/50 ML VIAL IV ONE (04:07)
[2021-12-23] MEDS: HEPARIN 5,000 UNIT/1 ML VIAL SUBCUT SCH ×2 (08:17→22:04)
[2021-12-23] MEDS ORDERED: SODIUM BICARB INJ 50 MEQ in DEXTROSE 5% NACL 0.45% 1,000 ML IV SCH (09:00)
[2021-12-23] MEDS ORDERED: DEXTROSE 50% 25 GM/50 ML VIAL IV PRN (11:47)
[2021-12-23] MEDS ORDERED: DEXTROSE 10% 1,000 ML IV SCH (12:00)
[2021-12-23] MEDS: PANTOPRAZOLE 40 MG TABLET PO SCH (15:00)
[2021-12-23] MEDS: DORZOLAMIDE/TIMOLOL OPH SOLN 10 ML BOTTLE BOTH EYES SCH (22:04)
[2021-12-24] MEDS: HYDROCORTISONE 100 MG VIAL IV SCH (04:10)
[2021-12-24 05:29] LABS: Basophils % 0.1 % (0.0-0.8); Hematocrit 27.3 VOL% (42.0-52.0); Hemoglobin 8.7 GM/DL (14.0-18.0); Immature Granulocytes % 0.8 %; Immature Granulocytes Absolute 0.17 #; Lymphocytes # 0.5 10*3/uL (1.4-4.0); Lymphocytes % 2.2 % (21.2-54.2); Mean Corpuscular HGB Conc 31.9 GM/DL (32-36); Mean Corpuscular Volume 87.8 FL (87-102); Mean Platelet Volume 9.3 FL (9.6-12.0); Monocytes % 3.9 % (1.7-12.7); Platelet Count 273 T/CUMM (130-400); Red Blood Count 3.11 MC/CUMM (3.8-5.5); Red Cell Distribution Width 15.8 % (9.3-17.3); White Blood Count 21.3 T/CUMM (4-12)
[2021-12-24 05:52] LABS: Albumin 2.1 G/DL (3.4-5.0); Bilirubin,Total 0.7 MG/DL (0.20-1.00); Calcium 8.1 MG/DL (8.5-10.1); Osmolality,Calculated 282.5 MOS/KG (273-304); Potassium 4.1 MMOL/L (3.5-5.1); Total Protein 7.5 G/DL (6.4-8.2)
[2021-12-24 06:13] LABS: Band Neutrophils 1 % (0-10); Lymphocytes 1 % (20-55); Segmented Neutrophils 96 % (50-85); Total Cells Counted 100
[2021-12-24 06:14] LABS: Hypochromia 1+; Microcytosis 1+; Platelet Estimate Normal
[2021-12-24] MEDS ORDERED: HYDROCORTISONE 100 MG VIAL IV SCH (07:32)
[2021-12-24] MEDS: PIPERACILLIN/TAZOBACTAM 3,375 MG in SODIUM CHLORIDE 0.9% 100 ML IV SCH ×2 (09:33→22:58)
[2021-12-24] MEDS: DORZOLAMIDE/TIMOLOL OPH SOLN 10 ML BOTTLE BOTH EYES SCH ×3 (09:33→23:02)
[2021-12-24] MEDS: PANTOPRAZOLE 40 MG TABLET PO SCH (09:37)
[2021-12-24] MEDS: ASPIRIN EC 81 MG TABLET PO SCH (09:37)
[2021-12-24] MEDS: HEPARIN 5,000 UNIT/1 ML VIAL SUBCUT SCH ×2 (09:37→22:57)
[2021-12-24] MEDS: INSULIN LISPRO 100 UNIT/ML SUBCUT SCH ×3 (13:38→21:16)
[2021-12-25 05:01] LABS: Basophils % 0.1 % (0.0-0.8); Eosinophils % 0.1 % (0.00-10.9); Hematocrit 26.8 VOL% (42.0-52.0); Hemoglobin 8.2 GM/DL (14.0-18.0); Immature Granulocytes % 0.4 %; Immature Granulocytes Absolute 0.05 #; Lymphocytes # 1.4 10*3/uL (1.4-4.0); Lymphocytes % 10.2 % (21.2-54.2); Mean Corpuscular HGB Conc 30.6 GM/DL (32-36); Mean Corpuscular Volume 89.3 FL (87-102); Mean Platelet Volume 8.9 FL (9.6-12.0); Monocytes % 8.5 % (1.7-12.7); Neutrophils % 80.7 % (38.7-73.9); Platelet Count 300 T/CUMM (130-400); Red Cell Distribution Width 15.9 % (9.3-17.3); White Blood Count 13.9 T/CUMM (4-12)
[2021-12-25 05:22] LABS: Albumin 2.2 G/DL (3.4-5.0); Bilirubin,Total 1.3 MG/DL (0.20-1.00); Osmolality,Calculated 283.1 MOS/KG (273-304); Potassium 3.8 MMOL/L (3.5-5.1); Total Protein 7.3 G/DL (6.4-8.2)
[2021-12-25] MEDS: DEXTROSE 10% 250 ML BAG IV PRN (07:42)
[2021-12-25] MEDS: PIPERACILLIN/TAZOBACTAM 3,375 MG in SODIUM CHLORIDE 0.9% 100 ML IV SCH (09:41)
[2021-12-25] MEDS: HEPARIN 5,000 UNIT/1 ML VIAL SUBCUT SCH (09:42)
[2021-12-25] MEDS: ASPIRIN EC 81 MG TABLET PO SCH (09:42)
[2021-12-25] MEDS: PANTOPRAZOLE 40 MG TABLET PO SCH (09:43)
[2021-12-25] MEDS: DORZOLAMIDE/TIMOLOL OPH SOLN 10 ML BOTTLE BOTH EYES SCH ×2 (09:44→16:02)
[2021-12-25] MEDS: INSULIN LISPRO 100 UNIT/ML SUBCUT SCH ×3 (09:46→17:39)
[2021-12-25 16:02] VITALS: BP 171/82
== END 2021-12-25 19:18 | disposition home or self-care (01) | DRG 637 ==
LOC: SUATTDRO → EDUNIT# → EDBD → N.ED 11:58 → N.EDINP 14:40 → SUATTDRO 14:40 → N.5E 18:27 → N.CC 12-23 20:02 → N.5E 12-23 20:42
PROVIDERS: ADMIT Family Medicine; ATTEND Hospitalist

== ENCOUNTER 2021-12-26 13:13 | Observation (INO) ==
[2021-12-26] MEDS ORDERED: ACETAMINOPHEN 325 MG TABLET PO PRN (13:47)
[2021-12-26] MEDS ORDERED: BISACODYL 5 MG TABLET PO PRN (13:47)
[2021-12-26] MEDS ORDERED: ONDANSETRON 4 MG/2 ML VIAL IV PRN (13:47)
[2021-12-27 04:48] LABS: Basophils % 0.3 % (0.0-0.8); Eosinophils # 0.2 10*3/uL (0.0-0.87); Eosinophils % 1.6 % (0.00-10.9); Hemoglobin 8.5 GM/DL (14.0-18.0); Immature Granulocytes % 0.5 %; Immature Granulocytes Absolute 0.06 #; Lymphocytes # 0.9 10*3/uL (1.4-4.0); Lymphocytes % 7.5 % (21.2-54.2); Mean Corpuscular HGB Conc 30.4 GM/DL (32-36); Mean Corpuscular Volume 91.5 FL (87-102); Mean Platelet Volume 8.6 FL (9.6-12.0); Monocytes % 10.6 % (1.7-12.7); Neutrophils % 79.5 % (38.7-73.9); Platelet Count 265 T/CUMM (130-400); Red Blood Count 3.06 MC/CUMM (3.8-5.5); Red Cell Distribution Width 15.6 % (9.3-17.3); White Blood Count 11.7 T/CUMM (4-12)
[2021-12-27 05:08] LABS: Albumin 2.3 G/DL (3.4-5.0); Bilirubin,Total 0.4 MG/DL (0.20-1.00); Calcium 8.3 MG/DL (8.5-10.1); Osmolality,Calculated 284.2 MOS/KG (273-304); Potassium 5.2 MMOL/L (3.5-5.1); Total Protein 7.4 G/DL (6.4-8.2)
[2021-12-27] MEDS ORDERED: PANTOPRAZOLE 40 MG TABLET PO SCH (09:00)
[2021-12-27 11:33] VITALS: BP 144/77
== END 2021-12-27 11:45 | disposition home or self-care (01) ==
LOC: EDUNIT# → EDBD → EDSEX → N.ED 13:13 → N.EDINP 13:13 → N.3E 14:20
PROVIDERS: ADMIT Surgery; ATTEND Surgery

== ENCOUNTER 2022-01-05 12:24 | Inpatient (IN) ==
[2022-01-05] MEDS ORDERED: ONDANSETRON 4 MG/2 ML VIAL IV PRN (14:57)
[2022-01-05] MEDS ORDERED: VANCOMYCIN INJ 1,000 MG in SODIUM CHLORIDE 0.9% 250 ML IV STA (14:57)
[2022-01-05] MEDS ORDERED: ACETAMINOPHEN 325 MG TABLET PO PRN (14:57)
[2022-01-05] MEDS ORDERED: MORPHINE 2 MG/1 ML SYRINGE IV PRN (14:57)
[2022-01-05 15:09] LABS: Basophils % 0.4 % (0.0-0.8); Eosinophils # 0.3 10*3/uL (0.0-0.87); Eosinophils % 2.6 % (0.00-10.9); Hematocrit 24.7 VOL% (42.0-52.0); Hemoglobin 7.3 GM/DL (14.0-18.0); Immature Granulocytes % 1.4 %; Immature Granulocytes Absolute 0.14 #; Lymphocytes # 0.8 10*3/uL (1.4-4.0); Lymphocytes % 7.5 % (21.2-54.2); Mean Corpuscular HGB Conc 29.6 GM/DL (32-36); Mean Corpuscular Volume 93.2 FL (87-102); Mean Platelet Volume 9.2 FL (9.6-12.0); Monocytes % 10.1 % (1.7-12.7); Platelet Count 347 T/CUMM (130-400); Red Blood Count 2.65 MC/CUMM (3.8-5.5); Red Cell Distribution Width 15.8 % (9.3-17.3); White Blood Count 10.3 T/CUMM (4-12)
[2022-01-05 15:28] LABS: Alanine Aminotransferase 24 U/L (16-61); Albumin 2.4 G/DL (3.4-5.0); Alkaline Phosphatase 174 U/L (45-117); Aspartate Amino Transferase 11 U/L (0-37); Bilirubin,Total < 0.39 MG/DL (0.20-1.00); Blood Urea Nitrogen 42 MG/DL (7-18); Calcium 7.9 MG/DL (8.5-10.1); Carbon Dioxide 34 MMOL/L (21-32); Chloride 93 MMOL/L (98-107); Estimated Glom Filtration Rate 11 ML/MIN; Glucose 310 MG/DL (74-106); Osmolality,Calculated 292.1 MOS/KG (273-304); Potassium 3.8 MMOL/L (3.5-5.1); Sodium 135 MMOL/L (136-145); Total Protein 7.1 G/DL (6.4-8.2)
[2022-01-05] MEDS ORDERED: cephALEXin 500 MG CAPSULE PO SCH (15:30)
[2022-01-05] MEDS: NON-FORMULARY MEDICATION (Ferric Citrate [Auryxia] 210 mg iron Tablet) PO SCH (17:12)
[2022-01-05] MEDS: carvediloL 25 MG TABLET PO SCH (18:32)
[2022-01-05] MEDS: cilostazoL 100 MG TABLET PO SCH (21:07)
[2022-01-05] MEDS: ATORVASTATIN 40 MG TABLET PO SCH (21:07)
[2022-01-05] MEDS: DORZOLAMIDE/TIMOLOL OPH SOLN 10 ML BOTTLE BOTH EYES SCH (21:08)
[2022-01-06 05:30] LABS: Basophils % 0.4 % (0.0-0.8); Eosinophils # 0.4 10*3/uL (0.0-0.87); Eosinophils % 3.8 % (0.00-10.9); Hematocrit 21.1 VOL% (42.0-52.0); Immature Granulocytes % 1.2 %; Immature Granulocytes Absolute 0.13 #; Lymphocytes % 9.4 % (21.2-54.2); Mean Corpuscular HGB Conc 30.3 GM/DL (32-36); Mean Corpuscular Volume 91.3 FL (87-102); Mean Platelet Volume 9.2 FL (9.6-12.0); Monocytes % 9.3 % (1.7-12.7); NRBC # 0.02 10*3/uL; Neutrophils % 75.9 % (38.7-73.9); Platelet Count 350 T/CUMM (130-400); Red Blood Count 2.31 MC/CUMM (3.8-5.5); White Blood Count 10.7 T/CUMM (4-12)
[2022-01-06 05:35] LABS: Hemoglobin 6.4 GM/DL (14.0-18.0)
[2022-01-06 05:59] LABS: Alanine Aminotransferase 21 U/L (16-61); Albumin 2.1 G/DL (3.4-5.0); Alkaline Phosphatase 149 U/L (45-117); Aspartate Amino Transferase 9 U/L (0-37); Bilirubin,Total < 0.39 MG/DL (0.20-1.00); Blood Urea Nitrogen 47 MG/DL (7-18); Calcium 7.7 MG/DL (8.5-10.1); Carbon Dioxide 29 MMOL/L (21-32); Chloride 97 MMOL/L (98-107); Estimated Glom Filtration Rate 9 ML/MIN; Glucose 108 MG/DL (74-106); Potassium 4.4 MMOL/L (3.5-5.1); Sodium 136 MMOL/L (136-145); Total Protein 6.7 G/DL (6.4-8.2)
[2022-01-06] MEDS ORDERED: ETOMIDATE 40 MG/20 ML VIAL IV ONE (13:50)
[2022-01-06] MEDS ORDERED: propofoL 200 MG/20 ML VIAL IV ONE (13:50)
[2022-01-06] MEDS ORDERED: LIDOCAINE 2% 5 ML VIAL ONE (13:50)
[2022-01-06] MEDS ORDERED: fentaNYL 100 MCG/2 ML VIAL ONE (13:51)
[2022-01-06] MEDS ORDERED: EPOETIN ALFA-EPBX 10,000 UNIT/ML VIAL IV PRN (14:24)
[2022-01-06] MEDS: NON-FORMULARY MEDICATION (Ferric Citrate [Auryxia] 210 mg iron Tablet) PO SCH ×2 (15:24→18:01)
[2022-01-06] MEDS: DORZOLAMIDE/TIMOLOL OPH SOLN 10 ML BOTTLE BOTH EYES SCH ×2 (15:24→21:06)
[2022-01-06] MEDS: ASPIRIN EC 81 MG TABLET PO SCH (15:24)
[2022-01-06] MEDS: carvediloL 25 MG TABLET PO SCH ×2 (15:24→18:01)
[2022-01-06] MEDS: PANTOPRAZOLE 40 MG TABLET PO SCH (15:25)
[2022-01-06] MEDS: cilostazoL 100 MG TABLET PO SCH ×2 (15:25→21:05)
[2022-01-06] MEDS: amLODIPine 5 MG TABLET PO SCH (15:25)
[2022-01-06] MEDS ORDERED: VANCOMYCIN 1,000 MG VIAL ONE (15:58)
[2022-01-06] MEDS ORDERED: HYDROmorphone 1 MG/1 ML SYRINGE IV PRN (16:34)
[2022-01-06] MEDS ORDERED: diphenhydrAMINE 50 MG/1 ML VIAL IV PRN (16:34)
[2022-01-06] MEDS ORDERED: ONDANSETRON 4 MG/2 ML VIAL IV PRN (16:34)
[2022-01-06] MEDS ORDERED: PROMETHAZINE INJ 25 MG in SODIUM CHLORIDE 0.9% 50 ML IV PRN (16:34)
[2022-01-06] MEDS: MEPERIDINE 25 MG/1 ML VIAL IV PRN ×2 (16:45→17:05)
[2022-01-06] MEDS ORDERED: GLUCAGON 1 MG VIAL IM PRN (17:27)
[2022-01-06] MEDS ORDERED: DEXTROSE 10% 250 ML BAG IV PRN (17:48)
[2022-01-06] MEDS: ATORVASTATIN 40 MG TABLET PO SCH (21:05)
[2022-01-07 06:15] LABS: Basophils # 0.1 10*3/uL (0.0-0.2); Basophils % 0.5 % (0.0-0.8); Eosinophils # 0.5 10*3/uL (0.0-0.87); Eosinophils % 3.6 % (0.00-10.9); Hemoglobin 9.6 GM/DL (14.0-18.0); Immature Granulocytes % 0.8 %; Immature Granulocytes Absolute 0.11 #; Lymphocytes # 0.9 10*3/uL (1.4-4.0); Lymphocytes % 6.9 % (21.2-54.2); Mean Corpuscular Volume 90.1 FL (87-102); Mean Platelet Volume 8.7 FL (9.6-12.0); Monocytes # 1.3 10*3/uL (0.11-0.8); Monocytes % 9.9 % (1.7-12.7); NRBC # 0.02 10*3/uL; Neutrophils % 78.3 % (38.7-73.9); Platelet Count 310 T/CUMM (130-400); Red Blood Count 3.44 MC/CUMM (3.8-5.5); Red Cell Distribution Width 16.3 % (9.3-17.3); White Blood Count 13.1 T/CUMM (4-12)
[2022-01-07 06:27] LABS: Calcium 8.8 MG/DL (8.5-10.1); Osmolality,Calculated 273.2 MOS/KG (273-304); Potassium 3.9 MMOL/L (3.5-5.1)
[2022-01-07] MEDS ORDERED: CEFEPIME 1,000 MG in SODIUM CHLORIDE 0.9% 100 ML IV ONE (10:00)
[2022-01-07] MEDS ORDERED: VANCOMYCIN INJ 1,000 MG in SODIUM CHLORIDE 0.9% 250 ML IV PRN (10:01)
[2022-01-07] MEDS: ASPIRIN EC 81 MG TABLET PO SCH (10:27)
[2022-01-07] MEDS: amLODIPine 5 MG TABLET PO SCH (10:27)
[2022-01-07] MEDS: carvediloL 25 MG TABLET PO SCH ×2 (10:27→18:41)
[2022-01-07] MEDS: cilostazoL 100 MG TABLET PO SCH ×2 (10:28→21:05)
[2022-01-07] MEDS: PANTOPRAZOLE 40 MG TABLET PO SCH (10:28)
[2022-01-07] MEDS: DORZOLAMIDE/TIMOLOL OPH SOLN 10 ML BOTTLE BOTH EYES SCH ×3 (10:30→21:06)
[2022-01-07] MEDS: NON-FORMULARY MEDICATION (Ferric Citrate [Auryxia] 210 mg iron Tablet) PO SCH ×3 (11:50→19:12)
[2022-01-07] MEDS: ATORVASTATIN 40 MG TABLET PO SCH (21:05)
[2022-01-08] MEDS: carvediloL 25 MG TABLET PO SCH ×2 (16:00→18:35)
[2022-01-08] MEDS: DORZOLAMIDE/TIMOLOL OPH SOLN 10 ML BOTTLE BOTH EYES SCH ×3 (16:01→20:10)
[2022-01-08] MEDS: NON-FORMULARY MEDICATION (Ferric Citrate [Auryxia] 210 mg iron Tablet) PO SCH ×3 (16:01→18:38)
[2022-01-08] MEDS: ASPIRIN EC 81 MG TABLET PO SCH (16:01)
[2022-01-08] MEDS: amLODIPine 5 MG TABLET PO SCH (16:02)
[2022-01-08] MEDS: PANTOPRAZOLE 40 MG TABLET PO SCH (16:02)
[2022-01-08] MEDS: cilostazoL 100 MG TABLET PO SCH ×2 (16:02→20:10)
[2022-01-08] MEDS ORDERED: VANCOMYCIN INJ 500 MG in SODIUM CHLORIDE 0.9% 250 ML IV ONE (16:26)
[2022-01-08] MEDS ORDERED: VANCOMYCIN INJ 1,000 MG in SODIUM CHLORIDE 0.9% 250 ML IV ONE (17:00)
[2022-01-08] MEDS ORDERED: CEFEPIME 1,000 MG in SODIUM CHLORIDE 0.9% 100 ML IV SCH (17:00)
[2022-01-08] MEDS: ATORVASTATIN 40 MG TABLET PO SCH (20:10)
[2022-01-08] MEDS: CEFEPIME 500 MG in SODIUM CHLORIDE 0.9% 100 ML IV SCH (20:10)
[2022-01-08] MEDS ORDERED: GLUCAGON 1 MG VIAL IM PRN (21:19)
[2022-01-08] MEDS ORDERED: DEXTROSE 10% 250 ML BAG IV PRN (21:30)
[2022-01-08] MEDS: INSULIN LISPRO 100 UNIT/ML SUBCUT SCH (22:10)
[2022-01-09] MEDS ORDERED: INSULIN LISPRO 100 UNIT/ML SUBCUT SCH (07:30)
[2022-01-09] MEDS: amLODIPine 5 MG TABLET PO SCH (10:28)
[2022-01-09] MEDS: PANTOPRAZOLE 40 MG TABLET PO SCH (10:29)
[2022-01-09] MEDS: carvediloL 25 MG TABLET PO SCH ×2 (10:29→17:56)
[2022-01-09] MEDS: cilostazoL 100 MG TABLET PO SCH ×2 (10:29→21:51)
[2022-01-09] MEDS: ASPIRIN EC 81 MG TABLET PO SCH (10:29)
[2022-01-09] MEDS: DORZOLAMIDE/TIMOLOL OPH SOLN 10 ML BOTTLE BOTH EYES SCH ×3 (10:38→21:46)
[2022-01-09] MEDS: NON-FORMULARY MEDICATION (Ferric Citrate [Auryxia] 210 mg iron Tablet) PO SCH ×3 (13:39→17:58)
[2022-01-09] MEDS: INSULIN LISPRO 100 UNIT/ML SUBCUT SCH ×4 (13:39→21:46)
[2022-01-09] MEDS: CEFEPIME 500 MG in SODIUM CHLORIDE 0.9% 100 ML IV SCH (21:50)
[2022-01-09] MEDS: ATORVASTATIN 40 MG TABLET PO SCH (21:51)
[2022-01-10] MEDS: INSULIN LISPRO 100 UNIT/ML SUBCUT SCH ×4 (08:17→21:37)
[2022-01-10] MEDS: PANTOPRAZOLE 40 MG TABLET PO SCH (09:17)
[2022-01-10] MEDS: carvediloL 25 MG TABLET PO SCH ×2 (09:17→17:32)
[2022-01-10] MEDS: amLODIPine 5 MG TABLET PO SCH (09:17)
[2022-01-10] MEDS: cilostazoL 100 MG TABLET PO SCH ×2 (09:17→21:36)
[2022-01-10] MEDS: DORZOLAMIDE/TIMOLOL OPH SOLN 10 ML BOTTLE BOTH EYES SCH ×3 (09:18→21:35)
[2022-01-10] MEDS: NON-FORMULARY MEDICATION (Ferric Citrate [Auryxia] 210 mg iron Tablet) PO SCH ×3 (09:24→17:33)
[2022-01-10] MEDS: ASPIRIN EC 81 MG TABLET PO SCH (09:24)
[2022-01-10] MEDS: SODIUM HYPOCHLORITE 0.25% IRRIG 473 ML BOTTLE TOP SCH (19:16)
[2022-01-10] MEDS: CEFEPIME 500 MG in SODIUM CHLORIDE 0.9% 100 ML IV SCH (21:35)
[2022-01-10] MEDS: ATORVASTATIN 40 MG TABLET PO SCH (21:36)
[2022-01-11 06:24] LABS: Basophils # 0.1 10*3/uL (0.0-0.2); Basophils % 0.5 % (0.0-0.8); Eosinophils # 0.5 10*3/uL (0.0-0.87); Eosinophils % 4.4 % (0.00-10.9); Hematocrit 29.1 VOL% (42.0-52.0); Hemoglobin 9.2 GM/DL (14.0-18.0); Immature Granulocytes % 0.4 %; Immature Granulocytes Absolute 0.04 #; Lymphocytes # 0.8 10*3/uL (1.4-4.0); Lymphocytes % 7.6 % (21.2-54.2); Mean Corpuscular HGB Conc 31.6 GM/DL (32-36); Mean Corpuscular Volume 89.3 FL (87-102); Mean Platelet Volume 8.8 FL (9.6-12.0); Monocytes # 0.9 10*3/uL (0.11-0.8); Neutrophils % 78.1 % (38.7-73.9); Platelet Count 338 T/CUMM (130-400); Red Blood Count 3.26 MC/CUMM (3.8-5.5); Red Cell Distribution Width 15.2 % (9.3-17.3); White Blood Count 10.4 T/CUMM (4-12)
[2022-01-11 06:57] LABS: Albumin 2.3 G/DL (3.4-5.0); Bilirubin,Total 0.5 MG/DL (0.20-1.00); Calcium 8.7 MG/DL (8.5-10.1); Osmolality,Calculated 273.9 MOS/KG (273-304); Phosphorous 6.4 MG/DL (2.5-4.9); Potassium 4.3 MMOL/L (3.5-5.1); Total Protein 7.5 G/DL (6.4-8.2)
[2022-01-11] MEDS: INSULIN LISPRO 100 UNIT/ML SUBCUT SCH ×4 (10:32→21:47)
[2022-01-11] MEDS: DORZOLAMIDE/TIMOLOL OPH SOLN 10 ML BOTTLE BOTH EYES SCH ×3 (10:33→21:46)
[2022-01-11] MEDS: carvediloL 25 MG TABLET PO SCH ×2 (10:33→17:35)
[2022-01-11] MEDS: ASPIRIN EC 81 MG TABLET PO SCH (10:33)
[2022-01-11] MEDS: NON-FORMULARY MEDICATION (Ferric Citrate [Auryxia] 210 mg iron Tablet) PO SCH ×3 (10:33→17:42)
[2022-01-11] MEDS: amLODIPine 5 MG TABLET PO SCH (10:33)
[2022-01-11] MEDS: cilostazoL 100 MG TABLET PO SCH ×2 (10:34→21:47)
[2022-01-11] MEDS: PANTOPRAZOLE 40 MG TABLET PO SCH (10:34)
[2022-01-11] MEDS: SODIUM HYPOCHLORITE 0.25% IRRIG 473 ML BOTTLE TOP SCH (17:38)
[2022-01-11] MEDS: CIPROFLOXACIN 500 MG TABLET PO SCH (17:41)
[2022-01-11] MEDS: ATORVASTATIN 40 MG TABLET PO SCH (21:47)
[2022-01-12] MEDS: INSULIN LISPRO 100 UNIT/ML SUBCUT SCH ×3 (07:38→16:01)
[2022-01-12] MEDS: PANTOPRAZOLE 40 MG TABLET PO SCH (08:49)
[2022-01-12] MEDS: cilostazoL 100 MG TABLET PO SCH (08:49)
[2022-01-12] MEDS: amLODIPine 5 MG TABLET PO SCH (08:49)
[2022-01-12] MEDS: carvediloL 25 MG TABLET PO SCH ×2 (08:49→16:01)
[2022-01-12] MEDS: ASPIRIN EC 81 MG TABLET PO SCH (08:49)
[2022-01-12] MEDS: DORZOLAMIDE/TIMOLOL OPH SOLN 10 ML BOTTLE BOTH EYES SCH ×2 (08:50→14:32)
[2022-01-12] MEDS: NON-FORMULARY MEDICATION (Ferric Citrate [Auryxia] 210 mg iron Tablet) PO SCH ×3 (08:50→16:02)
[2022-01-12] MEDS: SODIUM HYPOCHLORITE 0.25% IRRIG 473 ML BOTTLE TOP SCH (08:50)
[2022-01-12] MEDS: CIPROFLOXACIN 500 MG TABLET PO SCH (16:01)
[2022-01-12 16:59] VITALS: BP 145/50
== END 2022-01-12 16:59 | disposition home health service (06) | DRG 981 ==
LOC: N.ED 12:24 → N.EDINP 14:57 → N.3E 15:57
PROVIDERS: ADMIT Surgery; ATTEND Surgery

== ENCOUNTER 2022-08-23 14:33 | Inpatient (IN) ==
[2022-08-23 19:08] LABS: Basophils % 0.3 % (0.0-0.8); Eosinophils # 0.1 10*3/uL (0.0-0.87); Hematocrit 30.7 VOL% (42.0-52.0); Hemoglobin 9.5 GM/DL (14.0-18.0); Immature Granulocytes % 0.3 %; Immature Granulocytes Absolute 0.04 #; Lymphocytes # 0.5 10*3/uL (1.4-4.0); Lymphocytes % 4.2 % (21.2-54.2); Mean Corpuscular HGB Conc 30.9 GM/DL (32-36); Monocytes # 0.5 10*3/uL (0.11-0.8); Monocytes % 3.9 % (1.7-12.7); Neutrophils % 90.3 % (38.7-73.9); Platelet Count 142 T/CUMM (130-400); Red Blood Count 3.23 MC/CUMM (3.8-5.5); Red Cell Distribution Width 17.8 % (9.3-17.3); White Blood Count 12.8 T/CUMM (4-12)
[2022-08-23 19:27] LABS: Albumin 3.3 G/DL (3.4-5.0); Bilirubin,Total 0.8 MG/DL (0.20-1.00); Calcium 8.3 MG/DL (8.5-10.1); Osmolality,Calculated 294.1 MOS/KG (273-304); Potassium 4.9 MMOL/L (3.5-5.1); Total Protein 7.4 G/DL (6.4-8.2)
[2022-08-23 19:29] LABS: INR 1.1
[2022-08-23] MEDS ORDERED: VANCOMYCIN INJ 1,000 MG in SODIUM CHLORIDE 0.9% 250 ML IV STA (19:47)
[2022-08-23 20:09] LABS: Band Neutrophils 1 % (0-10); Eosinophils 3 % (0-10); Lymphocytes 3 % (20-55); Total Cells Counted 100
[2022-08-23 20:10] LABS: Platelet Estimate Normal
[2022-08-23] MEDS ORDERED: ACETAMINOPHEN 325 MG TABLET PO PRN (20:10)
[2022-08-23] MEDS ORDERED: hydrALAZINE 20 MG/1 ML VIAL IV PRN (20:10)
[2022-08-23] MEDS ORDERED: ONDANSETRON 4 MG/2 ML VIAL IV PRN (20:10)
[2022-08-23] MEDS ORDERED: MORPHINE 2 MG/1 ML SYRINGE IV PRN (20:10)
[2022-08-23 20:11] LABS: Hypochromia Slight
[2022-08-23] MEDS: INSULIN LISPRO 100 UNIT/ML SUBCUT SCH (21:30)
[2022-08-24 06:24] LABS: Calcium 7.8 MG/DL (8.5-10.1); Osmolality,Calculated 293.2 MOS/KG (273-304)
[2022-08-24 07:04] LABS: Basophils % 0.2 % (0.0-0.8); Eosinophils # 0.1 10*3/uL (0.0-0.87); Eosinophils % 0.6 % (0.00-10.9); Hematocrit 27.5 VOL% (42.0-52.0); Hemoglobin 8.5 GM/DL (14.0-18.0); Immature Granulocytes % 0.5 %; Immature Granulocytes Absolute 0.04 #; Lymphocytes # 0.5 10*3/uL (1.4-4.0); Lymphocytes % 6.1 % (21.2-54.2); Mean Corpuscular HGB Conc 30.9 GM/DL (32-36); Mean Corpuscular Volume 93.2 FL (87-102); Mean Platelet Volume 10.1 FL (9.6-12.0); Monocytes # 0.5 10*3/uL (0.11-0.8); Monocytes % 5.3 % (1.7-12.7); Neutrophils % 87.3 % (38.7-73.9); Platelet Count 122 T/CUMM (130-400); Red Blood Count 2.95 MC/CUMM (3.8-5.5); Red Cell Distribution Width 17.9 % (9.3-17.3); White Blood Count 8.8 T/CUMM (4-12)
[2022-08-24] MEDS: INSULIN LISPRO 100 UNIT/ML SUBCUT SCH ×4 (09:24→20:38)
[2022-08-24] MEDS: PANTOPRAZOLE 40 MG TABLET PO SCH (09:26)
[2022-08-24] MEDS ORDERED: LIDOCAINE 2% 5 ML VIAL ONE (12:15)
[2022-08-24] MEDS ORDERED: propofoL 200 MG/20 ML VIAL IV ONE (12:15)
[2022-08-24] MEDS ORDERED: ONDANSETRON 4 MG/2 ML VIAL ONE (12:15)
[2022-08-24] MEDS ORDERED: fentaNYL 100 MCG/2 ML VIAL ONE (12:16)
[2022-08-24] MEDS ORDERED: BUPIVACAINE MPF 0.25% 10 ML VIAL ONE (12:19)
[2022-08-24] MEDS ORDERED: TISSUE ADHESIVE 1 EACH APPLICATOR TOP ONE (12:19)
[2022-08-24] MEDS ORDERED: HEPARIN 5,000 UNIT/1 ML VIAL ONE (12:20)
[2022-08-24] MEDS ORDERED: LIDOCAINE 1%/EPI INJ 20 ML VIAL ONE (12:20)
[2022-08-24] MEDS ORDERED: EPOETIN ALFA-EPBX 4,000 UNIT/ML VIAL IV PRN (12:36)
[2022-08-24] MEDS ORDERED: ETOMIDATE 40 MG/20 ML VIAL IV ONE (12:39)
[2022-08-24] MEDS ORDERED: SODIUM CHLORIDE 0.9% 250 ML IV SCH (13:00)
[2022-08-24] MEDS ORDERED: PHENYLEPHRINE 1 MG/10 ML SYRINGE IV ONE (13:03)
[2022-08-24] MEDS ORDERED: SEVOFLURANE 1 UNIT/15 MINUTE INH ONE (13:28)
[2022-08-24] MEDS ORDERED: VANCOMYCIN INJ 500 MG in SODIUM CHLORIDE 0.9% 100 ML IV PRN (15:54)
[2022-08-24] MEDS ORDERED: VANCOMYCIN INJ 1,000 MG in SODIUM CHLORIDE 0.9% 250 ML IV ONE (17:00)
[2022-08-24] MEDS ORDERED: VANCOMYCIN INJ 500 MG in SODIUM CHLORIDE 0.9% 100 ML IV ONE (21:00)
[2022-08-25] MEDS ORDERED: GLUCAGON 1 MG VIAL IM PRN (07:14)
[2022-08-25] MEDS ORDERED: DEXTROSE 10% 250 ML BAG IV PRN (07:22)
[2022-08-25] MEDS: INSULIN LISPRO 100 UNIT/ML SUBCUT SCH ×4 (07:58→21:46)
[2022-08-25] MEDS: PANTOPRAZOLE 40 MG TABLET PO SCH (08:00)
[2022-08-25 08:02] LABS: Basophils % 0.3 % (0.0-0.8); Eosinophils # 0.1 10*3/uL (0.0-0.87); Eosinophils % 0.8 % (0.00-10.9); Hematocrit 26.2 VOL% (42.0-52.0); Hemoglobin 8.2 GM/DL (14.0-18.0); Immature Granulocytes % 0.6 %; Immature Granulocytes Absolute 0.05 #; Lymphocytes % 10.8 % (21.2-54.2); Mean Corpuscular HGB Conc 31.3 GM/DL (32-36); Mean Corpuscular Volume 92.9 FL (87-102); Mean Platelet Volume 10.2 FL (9.6-12.0); Monocytes # 0.9 10*3/uL (0.11-0.8); Monocytes % 9.8 % (1.7-12.7); Neutrophils % 77.7 % (38.7-73.9); Platelet Count 116 T/CUMM (130-400); Red Blood Count 2.82 MC/CUMM (3.8-5.5); Red Cell Distribution Width 17.8 % (9.3-17.3)
[2022-08-25] MEDS: CALCIUM ACETATE 667 MG CAPSULE PO SCH ×3 (08:27→16:39)
[2022-08-25 08:46] LABS: Calcium 7.5 MG/DL (8.5-10.1); Osmolality,Calculated 295.4 MOS/KG (273-304); Potassium 4.7 MMOL/L (3.5-5.1)
[2022-08-25] MEDS ORDERED: amLODIPine 5 MG TABLET PO SCH (09:00)
[2022-08-25] MEDS ORDERED: VANCOMYCIN INJ 500 MG in SODIUM CHLORIDE 0.9% 100 ML IV ONE (19:00)
[2022-08-25 19:55] VITALS: BP 158/69
[2022-08-25] MEDS ORDERED: ATORVASTATIN 40 MG TABLET PO SCH (21:00)
== END 2022-08-25 22:25 | disposition home or self-care (01) | DRG 252 ==
LOC: N.EDINP 14:33 → N.ED 14:33 → SUATTDRO 20:10 → N.2W 08-24 12:12
PROVIDERS: ADMIT Internal Medicine; ATTEND Internal Medicine

== ENCOUNTER 2022-08-28 22:25 | Inpatient (IN) ==
[2022-08-28] MEDS ORDERED: PIPERACILLIN/TAZOBACTAM 3,375 MG in SODIUM CHLORIDE 0.9% 100 ML IV STA (22:59)
[2022-08-28] MEDS ORDERED: VANCOMYCIN INJ 1,000 MG in SODIUM CHLORIDE 0.9% 250 ML IV STA ×2 (22:59→23:52)
[2022-08-28] MEDS ORDERED: NICOTINE 21 MG/24 HR PATCH TRANSDERM PRN (23:24)
[2022-08-28] MEDS ORDERED: diphenhydrAMINE CAP 25 MG CAPSULE PO PRN (23:24)
[2022-08-28] MEDS ORDERED: ZALEPLON 5 MG CAPSULE PO PRN (23:24)
[2022-08-28] MEDS ORDERED: guaiFENesin/DM ER 600-30 MG TABLET PO PRN (23:24)
[2022-08-28] MEDS ORDERED: ONDANSETRON 4 MG/2 ML VIAL IV PRN (23:24)
[2022-08-28] MEDS ORDERED: VANCOMYCIN INJ 1,750 MG in SODIUM CHLORIDE 0.9% 500 ML IV STA (23:37)
[2022-08-28] MEDS ORDERED: VANCOMYCIN INJ 500 MG in SODIUM CHLORIDE 0.9% 100 ML IV PRN (23:39)
[2022-08-28] MEDS: hydrALAZINE 20 MG/1 ML VIAL IV PRN (23:43)
[2022-08-28] MEDS ORDERED: IPRATROPIUM 500 MCG/2.5 ML NEB RESP TX ONE (23:57)
[2022-08-28] MEDS ORDERED: ALBUTEROL 2.5 MG/3 ML NEB RESP TX ONE (23:58)
[2022-08-29] MEDS ORDERED: VANCOMYCIN INJ 1,750 MG in SODIUM CHLORIDE 0.9% 500 ML IV STA (00:06)
[2022-08-29] MEDS: ALBUTEROL/IPRATROPIUM 3 ML NEB RESP TX SCH ×4 (00:10→20:15)
[2022-08-29] MEDS ORDERED: LABETALOL 20 MG/4 ML SYRINGE IV ONE (01:38)
[2022-08-29 03:52] LABS: Basophils % 0.2 % (0.0-0.8); Eosinophils # 0.1 10*3/uL (0.0-0.87); Eosinophils % 0.5 % (0.00-10.9); Hemoglobin 7.8 GM/DL (14.0-18.0); Immature Granulocytes % 0.9 %; Immature Granulocytes Absolute 0.11 #; Lymphocytes # 0.7 10*3/uL (1.4-4.0); Lymphocytes % 6.1 % (21.2-54.2); Mean Corpuscular HGB Conc 31.2 GM/DL (32-36); Mean Corpuscular Volume 91.9 FL (87-102); Mean Platelet Volume 10.3 FL (9.6-12.0); Monocytes # 0.7 10*3/uL (0.11-0.8); Monocytes % 5.7 % (1.7-12.7); Neutrophils % 86.6 % (38.7-73.9); Platelet Count 191 T/CUMM (130-400); Red Blood Count 2.72 MC/CUMM (3.8-5.5); Red Cell Distribution Width 17.1 % (9.3-17.3)
[2022-08-29 04:17] LABS: Albumin 2.6 G/DL (3.4-5.0); Bilirubin,Total 0.8 MG/DL (0.20-1.00); Calcium 7.7 MG/DL (8.5-10.1); Osmolality,Calculated 278.2 MOS/KG (273-304); Potassium 3.3 MMOL/L (3.5-5.1); Total Protein 6.9 G/DL (6.4-8.2)
[2022-08-29] MEDS ORDERED: IPRATROPIUM 500 MCG/2.5 ML NEB RESP TX ONE ×3 (07:11→18:57)
[2022-08-29] MEDS ORDERED: ALBUTEROL 2.5 MG/3 ML NEB RESP TX ONE ×3 (07:11→18:57)
[2022-08-29] MEDS: INSULIN LISPRO 100 UNIT/ML SUBCUT SCH ×3 (07:34→17:17)
[2022-08-29] MEDS: PANTOPRAZOLE 40 MG TABLET PO SCH (10:30)
[2022-08-29] MEDS ORDERED: GLUCAGON 1 MG VIAL IM PRN (11:26)
[2022-08-29] MEDS ORDERED: DEXTROSE 10% 250 ML BAG IV PRN (11:26)
[2022-08-29] MEDS: PIPERACILLIN/TAZOBACTAM 3,375 MG in SODIUM CHLORIDE 0.9% 100 ML IV SCH ×2 (13:05→23:00)
[2022-08-29] MEDS: hydrALAZINE 20 MG/1 ML VIAL IV PRN (16:43)
[2022-08-30] MEDS: INSULIN LISPRO 100 UNIT/ML SUBCUT SCH ×5 (01:23→23:06)
[2022-08-30] MEDS: ALBUTEROL/IPRATROPIUM 3 ML NEB RESP TX SCH ×4 (02:49→19:56)
[2022-08-30 06:42] LABS: Basophils % 0.3 % (0.0-0.8); Eosinophils # 0.2 10*3/uL (0.0-0.87); Eosinophils % 1.4 % (0.00-10.9); Hematocrit 26.4 VOL% (42.0-52.0); Hemoglobin 8.5 GM/DL (14.0-18.0); Immature Granulocytes Absolute 0.15 #; Lymphocytes # 0.6 10*3/uL (1.4-4.0); Mean Corpuscular HGB Conc 32.2 GM/DL (32-36); Mean Corpuscular Volume 90.7 FL (87-102); Monocytes # 0.8 10*3/uL (0.11-0.8); Monocytes % 5.2 % (1.7-12.7); Neutrophils % 88.1 % (38.7-73.9); Platelet Count 279 T/CUMM (130-400); Red Blood Count 2.91 MC/CUMM (3.8-5.5); Red Cell Distribution Width 16.7 % (9.3-17.3)
[2022-08-30 07:04] LABS: Eosinophils 2 % (0-10); Hypochromia Slight; Lymphocytes 3 % (20-55); Microcytosis Slight; Platelet Estimate Adequate; Total Cells Counted 100
[2022-08-30 07:06] LABS: Osmolality,Calculated 274.8 MOS/KG (273-304); Potassium 3.7 MMOL/L (3.5-5.1)
[2022-08-30] MEDS: PANTOPRAZOLE 40 MG TABLET PO SCH (08:26)
[2022-08-30] MEDS: carvediloL 25 MG TABLET PO SCH ×2 (11:03→17:34)
[2022-08-30] MEDS: amLODIPine 5 MG TABLET PO SCH (11:03)
[2022-08-30] MEDS: CALCIUM ACETATE 667 MG CAPSULE PO SCH ×2 (12:44→17:34)
[2022-08-30] MEDS: PIPERACILLIN/TAZOBACTAM 3,375 MG in SODIUM CHLORIDE 0.9% 100 ML IV SCH ×2 (13:57→23:03)
[2022-08-30] MEDS ORDERED: VANCOMYCIN INJ 500 MG in SODIUM CHLORIDE 0.9% 100 ML IV ONE (17:00)
[2022-08-30] MEDS: ATORVASTATIN 40 MG TABLET PO SCH (20:39)
[2022-08-31] MEDS: ALBUTEROL/IPRATROPIUM 3 ML NEB RESP TX SCH ×5 (00:02→23:56)
[2022-08-31 05:16] LABS: Basophils % 0.3 % (0.0-0.8); Eosinophils # 0.2 10*3/uL (0.0-0.87); Eosinophils % 1.8 % (0.00-10.9); Hematocrit 23.7 VOL% (42.0-52.0); Hemoglobin 7.4 GM/DL (14.0-18.0); Immature Granulocytes % 0.5 %; Immature Granulocytes Absolute 0.06 #; Lymphocytes # 0.8 10*3/uL (1.4-4.0); Lymphocytes % 6.8 % (21.2-54.2); Mean Corpuscular HGB Conc 31.2 GM/DL (32-36); Mean Corpuscular Volume 92.2 FL (87-102); Mean Platelet Volume 9.8 FL (9.6-12.0); Monocytes # 0.9 10*3/uL (0.11-0.8); Monocytes % 8.4 % (1.7-12.7); Neutrophils % 82.2 % (38.7-73.9); Platelet Count 327 T/CUMM (130-400); Red Blood Count 2.57 MC/CUMM (3.8-5.5); Red Cell Distribution Width 17.2 % (9.3-17.3); White Blood Count 11.2 T/CUMM (4-12)
[2022-08-31 05:42] LABS: Calcium 8.1 MG/DL (8.5-10.1); Osmolality,Calculated 273.1 MOS/KG (273-304); Potassium 3.8 MMOL/L (3.5-5.1)
[2022-08-31] MEDS: INSULIN LISPRO 100 UNIT/ML SUBCUT SCH ×3 (05:52→18:17)
[2022-08-31] MEDS: CALCIUM ACETATE 667 MG CAPSULE PO SCH ×3 (08:10→17:33)
[2022-08-31] MEDS: PANTOPRAZOLE 40 MG TABLET PO SCH (08:10)
[2022-08-31] MEDS: ASPIRIN EC 81 MG TABLET PO SCH (08:10)
[2022-08-31] MEDS: carvediloL 25 MG TABLET PO SCH ×2 (08:13→17:39)
[2022-08-31] MEDS: amLODIPine 5 MG TABLET PO SCH (08:13)
[2022-08-31] MEDS: ATORVASTATIN 40 MG TABLET PO SCH (21:39)
[2022-08-31] MEDS: ACETAMINOPHEN 325 MG TABLET PO PRN (21:40)
[2022-09-01] MEDS: INSULIN LISPRO 100 UNIT/ML SUBCUT SCH ×4 (00:49→17:24)
[2022-09-01 05:05] LABS: Basophils # 0.1 10*3/uL (0.0-0.2); Basophils % 0.5 % (0.0-0.8); Eosinophils # 0.4 10*3/uL (0.0-0.87); Eosinophils % 3.3 % (0.00-10.9); Hematocrit 22.9 VOL% (42.0-52.0); Hemoglobin 7.1 GM/DL (14.0-18.0); Immature Granulocytes % 0.8 %; Immature Granulocytes Absolute 0.09 #; Lymphocytes # 0.9 10*3/uL (1.4-4.0); Mean Corpuscular Volume 93.1 FL (87-102); Mean Platelet Volume 9.4 FL (9.6-12.0); Monocytes # 1.2 10*3/uL (0.11-0.8); Monocytes % 10.7 % (1.7-12.7); Neutrophils % 76.7 % (38.7-73.9); Platelet Count 337 T/CUMM (130-400); Red Blood Count 2.46 MC/CUMM (3.8-5.5); Red Cell Distribution Width 16.8 % (9.3-17.3); White Blood Count 10.7 T/CUMM (4-12)
[2022-09-01 05:28] LABS: Calcium 7.8 MG/DL (8.5-10.1); Osmolality,Calculated 271.5 MOS/KG (273-304)
[2022-09-01] MEDS: ALBUTEROL/IPRATROPIUM 3 ML NEB RESP TX SCH ×3 (07:30→19:09)
[2022-09-01] MEDS ORDERED: SODIUM CHLORIDE 0.9% 1,000 ML IV PRN (07:59)
[2022-09-01 08:26] LABS: Basophils % 0.4 % (0.0-0.8); Eosinophils # 0.5 10*3/uL (0.0-0.87); Eosinophils % 4.1 % (0.00-10.9); Hemoglobin 7.6 GM/DL (14.0-18.0); Immature Granulocytes % 0.8 %; Immature Granulocytes Absolute 0.09 #; Lymphocytes # 0.6 10*3/uL (1.4-4.0); Lymphocytes % 5.3 % (21.2-54.2); Mean Corpuscular HGB Conc 31.7 GM/DL (32-36); Mean Corpuscular Volume 92.7 FL (87-102); Mean Platelet Volume 9.1 FL (9.6-12.0); Monocytes # 0.7 10*3/uL (0.11-0.8); Monocytes % 6.2 % (1.7-12.7); Neutrophils % 83.2 % (38.7-73.9); Platelet Count 317 T/CUMM (130-400); Red Blood Count 2.59 MC/CUMM (3.8-5.5); Red Cell Distribution Width 16.7 % (9.3-17.3)
[2022-09-01] MEDS ORDERED: HEPARIN 10,000 UNIT/10 ML VIAL IV PRN (09:24)
[2022-09-01 09:47] LABS: Albumin 2.2 G/DL (3.4-5.0); Bilirubin,Direct 0.36 MG/DL (0.0-0.20); Bilirubin,Indirect 0.3 MG/DL (0.0-1.0); Bilirubin,Total 0.7 MG/DL (0.20-1.00); Total Protein 6.6 G/DL (6.4-8.2)
[2022-09-01] MEDS ORDERED: LIDOCAINE 1%/EPI INJ 20 ML VIAL ONE (10:56)
[2022-09-01] MEDS ORDERED: LIDOCAINE 2% 5 ML VIAL ONE (10:59)
[2022-09-01] MEDS ORDERED: propofoL 200 MG/20 ML VIAL IV ONE (10:59)
[2022-09-01] MEDS ORDERED: fentaNYL 100 MCG/2 ML VIAL ONE (11:16)
[2022-09-01] MEDS ORDERED: SODIUM CHLORIDE 0.9% 250 ML IV SCH (11:30)
[2022-09-01] MEDS ORDERED: GLUCAGON 1 MG VIAL IM PRN (12:50)
[2022-09-01] MEDS ORDERED: DEXTROSE 50% 25 GM/50 ML VIAL IV PRN (12:50)
[2022-09-01] MEDS: amLODIPine 5 MG TABLET PO SCH (13:00)
[2022-09-01] MEDS: ASPIRIN EC 81 MG TABLET PO SCH (13:00)
[2022-09-01] MEDS: carvediloL 25 MG TABLET PO SCH ×2 (13:00→17:01)
[2022-09-01] MEDS: PANTOPRAZOLE 40 MG TABLET PO SCH (13:00)
[2022-09-01] MEDS: CALCIUM ACETATE 667 MG CAPSULE PO SCH ×3 (13:00→17:01)
[2022-09-01] MEDS ORDERED: VANCOMYCIN INJ 500 MG in SODIUM CHLORIDE 0.9% 100 ML IV ONE (17:00)
[2022-09-01] MEDS: ATORVASTATIN 40 MG TABLET PO SCH (21:23)
[2022-09-01] MEDS: ACETAMINOPHEN 325 MG TABLET PO PRN (22:42)
[2022-09-02] MEDS: ALBUTEROL/IPRATROPIUM 3 ML NEB RESP TX SCH ×4 (00:10→19:00)
[2022-09-02] MEDS: INSULIN LISPRO 100 UNIT/ML SUBCUT SCH ×5 (00:24→23:48)
[2022-09-02 05:14] LABS: Basophils # 0.1 10*3/uL (0.0-0.2); Basophils % 0.5 % (0.0-0.8); Eosinophils # 0.6 10*3/uL (0.0-0.87); Eosinophils % 4.7 % (0.00-10.9); Hematocrit 28.9 VOL% (42.0-52.0); Hemoglobin 8.8 GM/DL (14.0-18.0); Immature Granulocytes % 0.8 %; Immature Granulocytes Absolute 0.09 #; Lymphocytes # 0.7 10*3/uL (1.4-4.0); Lymphocytes % 5.4 % (21.2-54.2); Mean Corpuscular HGB Conc 30.4 GM/DL (32-36); Mean Corpuscular Volume 90.9 FL (87-102); Mean Platelet Volume 9.3 FL (9.6-12.0); Monocytes # 1.2 10*3/uL (0.11-0.8); Monocytes % 10.2 % (1.7-12.7); Neutrophils % 78.4 % (38.7-73.9); Platelet Count 325 T/CUMM (130-400); Red Blood Count 3.18 MC/CUMM (3.8-5.5); Red Cell Distribution Width 17.8 % (9.3-17.3)
[2022-09-02 05:38] LABS: Albumin 2.3 G/DL (3.4-5.0); Bilirubin,Total 0.8 MG/DL (0.20-1.00); Calcium 8.5 MG/DL (8.5-10.1); Osmolality,Calculated 273.1 MOS/KG (273-304); Potassium 3.9 MMOL/L (3.5-5.1)
[2022-09-02] MEDS: ASPIRIN EC 81 MG TABLET PO SCH (08:52)
[2022-09-02] MEDS: CALCIUM ACETATE 667 MG CAPSULE PO SCH ×3 (08:52→17:04)
[2022-09-02] MEDS: carvediloL 25 MG TABLET PO SCH ×2 (08:52→17:04)
[2022-09-02] MEDS: PANTOPRAZOLE 40 MG TABLET PO SCH (08:52)
[2022-09-02] MEDS: amLODIPine 5 MG TABLET PO SCH (08:52)
[2022-09-02] MEDS: ACETAMINOPHEN 325 MG TABLET PO PRN (21:14)
[2022-09-02] MEDS: ATORVASTATIN 40 MG TABLET PO SCH (21:14)
[2022-09-02] MEDS: hydrALAZINE 20 MG/1 ML VIAL IV PRN (21:19)
[2022-09-03] MEDS: ALBUTEROL/IPRATROPIUM 3 ML NEB RESP TX SCH ×4 (00:45→19:27)
[2022-09-03 06:01] LABS: Basophils # 0.1 10*3/uL (0.0-0.2); Basophils % 0.4 % (0.0-0.8); Eosinophils # 0.8 10*3/uL (0.0-0.87); Eosinophils % 6.2 % (0.00-10.9); Hematocrit 28.2 VOL% (42.0-52.0); Hemoglobin 8.9 GM/DL (14.0-18.0); Immature Granulocytes % 0.9 %; Immature Granulocytes Absolute 0.11 #; Lymphocytes # 0.6 10*3/uL (1.4-4.0); Lymphocytes % 4.6 % (21.2-54.2); Mean Corpuscular HGB Conc 31.6 GM/DL (32-36); Mean Corpuscular Volume 90.4 FL (87-102); Monocytes # 0.8 10*3/uL (0.11-0.8); Monocytes % 6.4 % (1.7-12.7); Neutrophils % 81.5 % (38.7-73.9); Platelet Count 311 T/CUMM (130-400); Red Blood Count 3.12 MC/CUMM (3.8-5.5); Red Cell Distribution Width 17.8 % (9.3-17.3); White Blood Count 12.5 T/CUMM (4-12)
[2022-09-03] MEDS: INSULIN LISPRO 100 UNIT/ML SUBCUT SCH ×3 (06:04→17:24)
[2022-09-03 06:14] LABS: Alanine Aminotransferase < 9 U/L (16-61); Albumin 2.1 G/DL (3.4-5.0); Alkaline Phosphatase 152 U/L (45-117); Aspartate Amino Transferase 9 U/L (0-37); Blood Urea Nitrogen 29 MG/DL (7-18); Calcium 8.2 MG/DL (8.5-10.1); Carbon Dioxide 24 MMOL/L (21-32); Chloride 98 MMOL/L (98-107); Glucose 108 MG/DL (74-106); Osmolality,Calculated 268.7 MOS/KG (273-304); Potassium 3.7 MMOL/L (3.5-5.1); Sodium 131 MMOL/L (136-145); Total Protein 6.7 G/DL (6.4-8.2)
[2022-09-03 06:46] LABS: Eosinophils 5 % (0-10); Hypochromia Slight; Lymphocytes 2 % (20-55); Microcytosis Slight; Total Cells Counted 100
[2022-09-03 06:47] LABS: Ovalocytes Slight; Platelet Estimate Normal; Target Cells Slight
[2022-09-03] MEDS ORDERED: DEXTROSE 50% 25 GM/50 ML VIAL IV PRN (08:52)
[2022-09-03] MEDS ORDERED: GLUCAGON 1 MG VIAL IM PRN (08:52)
[2022-09-03] MEDS: ASPIRIN EC 81 MG TABLET PO SCH (09:10)
[2022-09-03] MEDS: amLODIPine 5 MG TABLET PO SCH (09:11)
[2022-09-03] MEDS: ACETAMINOPHEN 325 MG TABLET PO PRN (09:11)
[2022-09-03] MEDS: CALCIUM ACETATE 667 MG CAPSULE PO SCH ×3 (09:11→17:01)
[2022-09-03] MEDS: PANTOPRAZOLE 40 MG TABLET PO SCH (09:11)
[2022-09-03] MEDS: carvediloL 25 MG TABLET PO SCH ×2 (09:11→17:01)
[2022-09-04] MEDS: ALBUTEROL/IPRATROPIUM 3 ML NEB RESP TX SCH ×2 (00:21→07:17)
[2022-09-04] MEDS: INSULIN LISPRO 100 UNIT/ML SUBCUT SCH ×2 (00:31→07:17)
[2022-09-04 00:43] VITALS: BP 143/48
[2022-09-04] MEDS: carvediloL 25 MG TABLET PO SCH (07:17)
[2022-09-04] MEDS: CALCIUM ACETATE 667 MG CAPSULE PO SCH (07:18)
== END 2022-09-04 04:13 | disposition expired | DRG 252 ==
LOC: EDBD → EDUNIT# → N.ED 22:25 → SUATTDRO 23:24 → N.EDINP 23:24 → N.3E 08-29 14:52
PROVIDERS: ADMIT Emergency Medicine; ATTEND Internal Medicine